=== PATIENT | female | born 1945 | race Caucasian/White ===

== ENCOUNTER → 2017-03-06 13:32 | Outpatient (CLI) | payer MEDICARE, OTHER ==
[2015-12-07 09:42] VITALS: BMI 20.8
[~2017-03-06 13:32] MED LIST: AMBIEN10 MG PO; BENADRYL25 MG PO; BIAXIN 500 MG500 MG PO; BUMEX 1 MG TAB1 MG PO; BUMEX2 MG PO; CALCIUM 600+D T1 TA1 PO; COREG 3.1253.125 MG NG; COREG 3.1253.125 MG PO; CYCLOBENZAPRINE10 MG PO; DEXILANT60 MG PO; FLAGYL500 MG PO; FLORANEX / LACT1 TAB PO; GLUCOPHAGE1000 MG PO; HUMALOG 30100 UNITS/; HUMALOG 30100 UNITS/ SQ; IBUPROFEN600 MG PO; LANOXIN125 MCG PO; LANOXIN250 MCG PO; LANTUS SOL100 UNIT/1 SQ; LASIX20 MG PO; LISINOPRIL5 MG PO; MAG-OX 400 MG400 MG PO; MAG-OXIDE400 MG PO; METOPROLOL TART50 MG PO; PLAVIX75 MG PO; PRAVACHOL20 MG PO; REGLAN10 MG PO; REMERON15 MG PO; RESTORIL15 MG PO; SALINE NASAL SP45 ML NS; SODIUM CHLORIDE PO; ULTRAM50 MG PO; VITAMIN B-121000 MCG PO
== END | disposition home or self-care (01) ==
LOC: D.US 13:32
DX: I65.23 Occlusion and stenosis of bilateral carotid arteries (principal)

== ENCOUNTER → 2017-03-25 08:06 | Outpatient (CLI) | payer MEDICARE, OTHER ==
[2015-12-07 09:42] VITALS: BMI 20.8
[~2017-03-25 08:06] MED LIST changes: +HUMALOG; +MUCOMYST PO
[2017-03-25 12:08] LABS: BASOPHILS 0.2 % (0-2); EOSINOPHILS 2.8 % (0-7); IMMATURE GRANULOCYTES 0.5 % (0-5); MCH 30.3 pg (26.0-34.0); MCHC 33.3 g/dL (31.0-37.0); MCV 90.9 fL (80.0-100.0); MEAN PLATELET VOLUME 12.6 fL (7.4-10.4); MONOCYTES 10.8 % (2-11); NEUTROPHILS 65.7 % (40-80); RBC 2.31 10x6/uL (4.00-5.40); RDW 17.7 % (11.5-14.5); WBC 5.6 10x3/uL (4.8-10.8)
[2017-03-25 12:24] LABS: PLATELET COUNT 120 10x3/uL (130-400)
[2017-03-25 12:29] LABS: ALBUMIN 3.1 g/dL (3.4-5.0); ANION GAP 11.4 mmol/L (8-16); BILIRUBIN - TOTAL 1.14 mg/dL (0.2-1.3); CALCIUM 7.9 mg/dL (8.5-10.1); CARBON DIOXIDE 30.5 mmol/L (21.0-32.0); CREATININE - SERUM 1.5 mg/dL (0.6-1.3); POTASSIUM - SERUM 3.9 mmol/L (3.5-5.1); PROTEIN - SERUM 6.7 g/dL (6.4-8.2)
--- NOTE | 2017-03-25 18:40 | NUR ---
0925 1 HOUR BICARB PRE CTA. INITIATED BY DULCE BAIRES RN. CT NOTIFIED. [address] POST IV BICARB INITIATED. LUNCH SERVED. UP TO BR VOIDS QS. 1325 DR. YAMILETH PANDEY NURSE ROUNDS, AWAITING FUTHER ORDERS. 1457 ORDERS RECEIVED FROM DIOGO BERRY APN. LAB NOTIFIED. PT. INFORMED OF ORDERS. 1530 LAB HERE DRAWN AND BANDED FOR BLOOD TRANSFUSION 1630 SUPPER TRAY ORDERED. 1700 1ST UNIT BLOOD CHECKED AT BEDSIDE BY THIS NURSE AND RADHA DEVI RN INITIATED BY ALARIS PUMP AT 50/CC/HR. 1715 SUPPER TRAY SERVED. DENIES PROBLEMS WITH BLOOD, RATE INCREASED TO 150/CC/HR 1715 DENIES PROBLEMS WITH TRANSFUSION 1845 UP TO BR VOIDS LG AMT.
== END | disposition home or self-care (01) ==
LOC: D.CT 08:00 → D.OPS 08:06 → D.LAB 09:30 → D.CT 10:00
PROVIDERS: Internal Medicine Cardiovascular Disease
DX: I65.23 Occlusion and stenosis of bilateral carotid arteries (principal); I10 Essential (primary) hypertension; D64.9 Anemia, unspecified

== ENCOUNTER → 2017-04-29 14:52 | Outpatient (CLI) | payer MEDICARE, OTHER ==
[2015-12-07 09:42] VITALS: BMI 20.8
== END | disposition home or self-care (01) ==
LOC: D.MRI 14:52
DX: S63.502A Unspecified sprain of left wrist, initial encounter (principal); W19.XXXA Unspecified fall, initial encounter

== ENCOUNTER 2017-05-25 17:31 | Inpatient (IN) | payer MEDICARE, OTHER ==
[~2017-05-25] VITALS: Ht 165.1 cm; Wt 73.7 kg
--- NOTE | ~2017-05-25 | HEMODYNAMI ---
PATIENT:INDIA ELLIS MEDICAL RECORD: [id number] : 47 LOCATION:[facility] D.2110 ADMISSION DATE: 05/26/17 Generatedon:06/09/201713:12 Patient name: INDIA ELLIS Patient #: [id number] SSN: : 1945 Date of study: 06/09/2017 Page: Of Hemodynamic Procedure Report Patient Data Patient Demographics Procedure consent was obtained First Name: INDIA Gender: Female Last Name: CALEB : 1945 [facility] Initial: CORRINE Age: 72 year(s) Patient #: [id number] Race: Unknown Additional ID: [id number] Contact details Address: [address] [place] [address] ROAD State: [place] City: [place] Zip code: [address] Past Medical History Allergies Allergen Reaction Date Comments Reported Other allergy 05/30/2017 SEE LIST Other allergy 06/09/2017 See Nursing note Admission Admission Data Admission Date: 05/26/2017 Admission Time: 11:43 Room #: D.2110 Lab Results Lab Result Date: 06/09/2017 Lab Result Time: 4:36 Biochemistry Name Units Result Min Max BUN mg/dl 51 --(----)-* 7 18 Creatinine mg/dl 1.8 --(----)-* 0.6 1.3 CBC Name Units Result Min Max Hematocrit % 25.5 *-(----)-- 42 54 Hemoglobin g/dl 8.8 *-(----)-- 13.5 17.5 Procedure Procedure Types Cath Procedure PCI Procedure Coronary Stent Initial Miscellaneous Procedures Moderate Sedation up to 15 minutes Procedure Description Procedure Date Procedure Date: 06/09/2017 Procedure Start Time: 12:56 Procedure End Time: 13:12 Procedure Staff Name Function Glenn Rodriguez MD Performing Physician Kathrine Ayala RT Scrub Kaylah Enriquez RN Nurse Dillon Pires RN Rotary Drum Dyer Gulshan Christensen RT Monitor Procedure Data Cath Procedure Fluoroscopy Diagnostic fluoroscopy Total fluoroscopy Time: 1.7 time: 1.7 min min Diagnostic fluoroscopy Total fluoroscopy dose: 115 dose: 115 mGy mGy Contrast Material Contrast Material Type Amount (ml) Isovue 300 28 Entry Location Entry Primary Successful Side Size Upsize Upsize Entry Closure Succes sful Closure Location (Fr) 1 (Fr) 2 (Fr) Remarks Device Remarks Femoral Right 6 Fr Exoseal artery Short Estimated blood loss: 10 ml Procedure Complications No complications Procedure Medications Medication Administration Route Dosage Oxygen NC 2 l/min Lidocaine 2% added to field 20 Heparin Flush Bag added to field 2 bags (1000units/500ml NS) 0.9% NaCl I.V. 100 ml/hr Versed I.V. 1 mg Fentanyl I.V. 50 mcg Heparin Bolus I.V. 4000 units Hemodynamics Rest HGB: 8.8 (g/dl) Heart Rate: 82 (bpm) Snapshots Pre Cath Intra NCS Post Cath Vital Signs Time Heart Resp SPO2 etCO2 [id number] NIBP (mmHg) Rhythm Pain Sedation Rate (ipm) (%) (mmHg) (mmHg) Status Level (bpm) 12:42:29 82 12 100 0 0 135/68(94) NSR 0 (11) 10(A) , No pain 12:46:44 82 16 100 0 0 128/69(99) NSR 0 (11) 10(A) , No pain 12:50:57 82 24 100 0 0 127/67(94) NSR 0 (11) 10(A) , No pain 12:55:09 81 17 99 0 0 120/70(102) NSR 0 (11) 10(A) , No pain 12:59:19 81 16 95 0 0 112/68(92) NSR 0 (11) 9(A) , No pain 13:03:29 79 17 100 0 0 114/58(87) NSR 0 (11) 9(A) , No pain 13:07:37 80 17 100 0 0 121/64(85) NSR 0 (11) 10(A) , No pain 13:11:59 0 0 No Cuff NSR 0 (11) 10(A) , No pain Medications Time Medication Route Dose Verified Delivered Reason Notes Effectiveness by by 12:39:58 Oxygen NC 2 Glenn Adrian used for l/min Michael Enriquez steel construction worker 12:40:06 Lidocaine 2% added 20ml Glenn Elizabeth for local to vial Michael Rodriguez MD anesthetic field 12:40:13 Heparin Flush added 2 Glenn Elizabeth used for Bag to bags Michael Rodriguez MD procedure (1000units/500ml field NS) 12:41:14 0.9% NaCl I.V. 100 Glenn Adrian Per physician ml/hr Michael Enriquez RN 12:56:28 Versed I.V. 1 mg Glenn Adrian for sedation Michael Enriquez RN 12:56:34 Fentanyl I.V. 50 Glenn Adrian for mcg Michael Enriquez RN anticoagulation 12:57:56 Heparin Bolus I.V. 4000 Glenn Adrian for units Michael Enriquez RN anticoagulation Procedure Log Time Note 12:18:34 Diagnostic Cath status Elective 12:18:36 Dillon Pires RN sent for patient. Start room use. 12:18:37 Time tracking: Regular hours 12:18:44 Plan of Care:Hemodynamics will remain stable., Cardiac rhythm will remain stable., Comfort level will be maintained., Respiratory function will remain adequate., Patient/ family verbilizes understanding of procedure., Procedure tolerated without complication., Recovers from procedure without complications.. 12:30:42 Patient received from Med II to CCL 1 Alert and oriented. Tansferred to table in Supine position. 12:30:43 Warm blankets applied, and sonya hugger turned on for patient comfort. 12:30:43 Correct patient and procedure confirmed by team. 12:30:45 Signed procedure consent form obtained from patient. 12:31:15 H&P Date Dictated: 06/06/2017 Within 30 days and on chart.. 12:39:58 Oxygen 2 l/min NC was administered by Kaylah Enriquez RN; used for procedure; 12:40:06 Lidocaine 2% 20ml vial added to field was administered by Glenn Rodriguez MD; for local anesthetic; 12:40:13 Heparin Flush Bag (1000units/500ml NS) 2 bags added to field was administered by Glenn Rodriguez MD; used for procedure; 12:41:14 0.9% NaCl 100 ml/hr I.V. was administered by Kaylah Erniquez RN; Per physician; 12:41:26 Vital chart was started 12:49:55 ECG and BP/O2 sat monitors applied to patient. 12:49:58 Baseline sample Acquired. 12:50:05 Rhythm: sinus rhythm 12:50:06 Pre-procedure instructions explained to patient. 12:50:06 Pre-op teaching completed and patient verbalized understanding. 12:50:08 Family unavailable. 12:50:09 Patient NPO since Midnight. 12:50:26 Patient allergic to Other allergySee Nursing note 12:50:28 Is the patient allergic to Iodine/contrast media? No. 12:50:29 Is patient on blood thinner?Yes 12:50:32 ACC The patient was administered the following blood thiners within the last 24 hours: ACCPlavix 12:50:35 Patient diabetic? Yes. 12:50:36 If diabetic: On Metformin? No 12:50:40 Previous problem with sedation/anesthesia? No ? 12:50:41 Snore? Yes 12:50:42 Sleep apnea? No 12:50:43 Deviated septum? No 12:50:44 Opens mouth fully? Yes 12:50:45 Sticks out tongue? Yes 12:50:47 Airway obstruction? No ? 12:50:52 Dentures? Yes IN TIGHT 12:50:56 Pre procedure: right dorsailis pedis pulse 1+ Palpable, but thready & weak; easily obliterated 12:50:58 Patient pain scale 0/10 ?. 12:51:09 IV patent on arrival in right antecubital with 0.9% NaCl at [facility]. 12:51:49 Lab Result : Creatinine 1.8 mg/dl 12:51:49 Lab Result : BUN 51 mg/dl 12:51:49 Lab Result : Hemoglobin 8.8 g/dl 12:51:49 Lab Result : Hematocrit 25.5 % 12:51:53 Lab results completed and on chart. 12:51:56 Right groin area was prepped with chlora-prep and draped in sterile fashion 12:51:57 Alarms reviewed by R. N. 12:51:57 Sharps counted by scrub and verified by R.N. 12:52:00 Tegaderm 4 x 4 opened to sterile field. 12:52:01 Acist Manifold opened to sterile field. 12:52:02 Acist Hand Control opened to sterile field. 12:52:03 Acist Syringe opened to sterile field. 12:52:03 Bag Decanter opened to sterile field. 12:52:03 Medline Cath Pack opened to sterile field. 12:52:06 St Jd 260cm J .035 wire opened to sterile field. 12:52:07 Diagnostic Infinity 5Fr Multipack catheter opened to sterile field. 12:52:13 Physician arrived 12::14 --------ALL STOP TIME OUT------ 12:52:14 Final Timeout: patient, procedure, and site verified with staff and physician. All members of the team are in agreement. 12:52:16 Right groin site verified by team. 12:52:18 Physical assessment completed. ASA score P 2 - A patient with mild systemic disease as per Glenn Rodriguez MD. 12:52:21 Sedation plan: IV Moderate Sedation Versed, Fentanyl 12:54:01 Terumo 6Fr [place] Sheath opened to sterile field. 12:54:02 Merit BasixCompak Inflation Kit opened to sterile field. 12:54:02 [place] Whisper J 300cm 0.014 guide wire opened to sterile field. 12:56:06 Everbridgetronic Launcher 6Fr AR 1.0 guide catheter opened to sterile field. 12:56:11 Procedure started. 12:56:11 Full Disclosure recording started 12:56:14 Local anesthetic to right femoral artery with Lidocaine 2% by Glenn Rodriguez MD.INITIAL ACCESS ONLY 12:56:21 A 6 Fr Short sheath was inserted into the Right Femoral artery 12:56:28 Versed 1 mg I.V. was administered by Kaylah Enriquez RN; for sedation; 12:56:34 Fentanyl 50 mcg I.V. was administered by Kaylah Enriquez RN; for anticoagulation; 12:57:55 Zero performed for pressure channel P1 12:57:56 Heparin Bolus 4000 units I.V. was administered by Kaylah Enriquez RN; for anticoagulation; 12:57:58 Zero performed for pressure channel P1 12:59:14 6 Fr AR 1 guide catheter was inserted over the wire 13:00:11 WHISPER wire advanced. 13:00:55 Wire advanced across lesion. 13:02:07 Inflation Number: 1 A James OTW 3.5 x 18 stent was prepped and advanced across the Mid RCA. The stent was deployed at 13 PARI for 0:10 (min:sec). 13:02:10 Stent catheter was removed intact over wire. 13:02:10 Wire removed. 13:02:11 Guide catheter removed. 13:02:17 Cordis 6Fr Exoseal opened to sterile field. 13:02:24 Sheath removed intact; hemostasis achieved with Exoseal to the Right Femoral artery. 13:02:26 Procedure ended.(Physican Out) 13:04:56 Fluoroscopy time 01.70 minutes. 13:05:01 Fluoroscopy dose: 115 mGy 13:05:01 Flurop Dose total: 115 13:06:47 Contrast amount:Isovue 300 28ml. 13:06:49 Sharps counted by scrub and verified by R.N. 13:06:50 Insertion/operative site no bleeding no hematoma. 13:06:52 Post-op/insertion site Right Femoral artery dressed using a 4 x 4 and Tegaderm. 13:06:55 Post right femoral artery:stable, soft, clean and dry 13:06:57 Post Procedure Pulses reassessed and unchanged 13:06:59 Post-procedure physical assessment completed. ASA score P 2 - A patient with mild systemic disease as per Glenn Rodriguze MD. 13:07:02 Post procedure rhythm: unchanged. 13:07:06 Estimated blood loss: 10 ml 13:07:08 Post procedure instruction explained to patient.Patient verbalizes understanding. 13:07:08 Patient needs reinforcement of post procedure teaching. 13:07:46 Procedure type changed to Cath procedure, PCI procedure, Coronary Stent Initial, Miscellaneous Procedures, Moderate Sedation up to 15 minutes 13:11:31 Procedure and supply charges have been captured, reviewed, submitted and are correct. 13:11:34 Procedure Complication : No complications 13:11:39 Vital chart was stopped 13:11:54 See physician's report for complete and final results. 13:11:56 Report given to PCU. 13:11:59 Patient transfered to PCU with Stretcher. 13:12:02 Procedure ended. 13:12:02 Full Disclosure recording stopped 13:12:23 End room use (Document Last) Intervention Summary Intervention Notes Time ActionType Lesion and Equipment Action# Pressure Duration Attributes Used 13:02:07 Place stent Mid RCA [place] OTW 1 13 00:10 3.5 x 18 stent Device Usage Item Name Manufacture Quantity Catalog Hospital Part Current [facility] l Lot# / Number Charge Number Stock Stock Serial# Code Tegaderm 4 3M 1 [id number] 147753 5 x 4 Acist Acist 1 61155 839721 919746 336126 5 Manifold Medical Systems Inc Acist Hand Acist 1 26070 231446 561797 845539 5 Control Medical Systems Inc Acist Acist 1 86962 039948 436231 816745 20 Syringe Medical Systems Inc Bag Microtek 1 2002S 426637 46406 016070 5 DecAppLabs Inc. Medline Cardinal 1 [id number] 675258 68927 117445 [address] Jd 1 [id number] 097577 606336 485094 30 260cm J .035 wire Diagnostic Cardinal 1 [id number] 801361 03276 613417 30 [employer]is [employer] 5Fr Multipack catheter Terumo 6Fr Terumo 1 [id number] 593348 643373 747982 40 [place] Sheath Merit Merit 1 [id number] 629029 642411 361707 15 BasixCompak Medical Inflation Kit [place] 1 [id number] 778930 813021 483906 5 Whisper J Vascular 300cm 0.014 guide wire Medtronic Medtronic 1 [id number] 520087 44328 609876 1 Launcher 6Fr AR 1.0 guide catheter [place] OTW Medtronic 1 [id number] 007433 9520843 090774 5 3.5 x 18 stent Cordis 6Fr Cardinal 1 EX600 754535 143468 991958 10 [facility] LocBox Signature Audit [place] Stage Time Signature Unsigned Intra-Procedure 06/09/2017 Gulshan Christensen 1:12:41 PM RT(R) Signatures Monitor : Gulshan Christensen RT Signature : Date : Time : [facility] [address] [facility]ITAL[facility], [place] [address]
--- NOTE | ~2017-05-25 | HEMODYNAMI ---
PATIENT:INDIA ELLIS MEDICAL RECORD: [id number] : 47 LOCATION[facility] D.[address] [id number] ADMISSION DATE: 05/26/17 Generatedon:05/30/201712:25 Patient name: INDIA ELLIS Patient #: [id number] SSN: : 1945 Date of study: 05/30/2017 Page: Of Hemodynamic Procedure Report Patient Data Patient Demographics Procedure consent was obtained First Name: INDIA Gender: Female Last Name: CALEB : 1945 [facility] Initial: CORRINE Age: 72 year(s) Patient #: [id number] Race: Unknown Additional ID: [id number] Contact details [address]: [address] [place] [address] ROAD State: [place] City: [place] Zip code: [address] Past Medical History Allergies Allergen Reaction Date Comments Reported Other allergy 05/30/2017 SEE LIST Admission Admission Data Admission Date: 05/26/2017 Admission Time: 11:43 Room #: D.2110 Lab Results Lab Result Date: 05/30/2017 Lab Result Time: 0:00 Biochemistry Name Units Result Min Max BUN mg/dl 66 --(----)-* 7 18 Creatinine mg/dl 1.7 --(----)-* 0.6 1.3 CBC Name Units Result Min Max Hemoglobin g/dl 9.6 *-(----)-- 13.5 17.5 Procedure Procedure Types Cath Procedure Diagnostic Procedure LHC LHC w/Coronaries w/Grafts PCI Procedure SVG-BMS/HEMANT Initial Miscellaneous Procedures Moderate Sedation up to 30 minutes Procedure Description Procedure Date Procedure Date: 05/30/2017 Procedure Start Time: 12:06 Procedure End Time: 12:19 Procedure Staff Name Function Glenn Rodriguez MD Performing Physician Kaylah Enriquez RN Nurse Javier Sandy RT Monitor Eloy Cantrell RT Scrub Procedure Data Cath Procedure Fluoroscopy Diagnostic fluoroscopy Total fluoroscopy Time: 4 time: 4 min min Diagnostic fluoroscopy Total fluoroscopy dose: 475 dose: 475 mGy mGy Contrast Material Contrast Material Type Amount (ml) Isovue 300 98 Entry Location Entry Primary Successful Side Size Upsize Upsize Entry Closure Succes sful Closure Location (Fr) 1 (Fr) 2 (Fr) Remarks Device Remarks Femoral Right 5 Fr 6 Fr Exoseal artery Short Diagnostic catheters Device Type Used For End Catheter Placement Cordis 5Fr Pigtail LV Angiography Catheter (MP) Cordis 5Fr JL 4.0 Left Coronary Catheter (MP) Angiography Diagnostic Infinity 5Fr SVG Angiography AR 2 MOD catheter Procedure Complications No complications Procedure Medications Medication Administration Route Dosage Oxygen NC 2 l/min Lidocaine 2% added to field 20 Heparin Flush Bag added to field 2 bags (1000units/500ml NS) 0.9% NaCl I.V. 100 ml/hr Versed I.V. 0.5 mg Fentanyl I.V. 25 mcg Versed I.V. 0.5 mg Fentanyl I.V. 25 mcg Heparin Bolus I.V. 4000 units Versed I.V. 0.5 mg Fentanyl I.V. 25 mcg Hemodynamics Rest HGB: 9.6 (g/dl) Heart Rate: 74 (bpm) Snapshots Pre Cath Intra NCS Post Cath Vital Signs Time Heart Resp SPO2 etCO2 [id number] NIBP (mmHg) Rhythm Pain Sedation Rate (ipm) (%) (mmHg) (mmHg) Status Level (bpm) 11:58:29 71 19 100 0 0 148/76(117) NSR 0 (11) 10(A) , No pain 12:02:47 70 17 100 0 0 147/68(115) NSR 0 (11) 10(A) , No pain 12:07:07 65 17 97 0 0 128/62(100) NSR 0 (11) 9(A) , No pain 12:12:04 66 16 99 0 0 127/58(94) NSR 0 (11) 9(A) , No pain 12:16:20 66 15 99 0 0 119/54(87) NSR 0 (11) 9(A) , No pain 12:22:55 66 19 99 0 0 128/59(99) NSR 0 (11) 10(A) , No pain Medications Time Medication Route Dose Verified Delivered Reason Notes Effectiveness by by 11:56:55 Oxygen NC 2 Glenn Adrian used for l/min Michael Enriquez record label internship 11:57:02 Lidocaine 2% added 20ml Glenn Elizabeth for local to vial Michael Rodriguez MD anesthetic field 11:57:08 Heparin Flush added 2 Glenn Elizabeth used for Bag to bags Michael Rodriguez MD procedure (1000units/500ml field NS) 12:03:09 0.9% NaCl I.V. 100 Glenn Adrian Per physician ml/hr Michael Enriquez RN 12:03:22 Versed I.V. 0.5 Glenn Buffie for sedation mg Michael Enriquez RN 12:03:29 Fentanyl I.V. 25 Glenn Buffie for sedation mcg Michael Enriquez RN 12:06:53 Versed I.V. 0.5 Glenn Buffie for sedation mg Michael Enriquez RN 12:06:57 Fentanyl I.V. 25 Glenn Buffie for sedation mcg Michael Enriquez RN 12:11:00 Heparin Bolus I.V. 4000 Glenn Buffie for verifi ed units Michael Enriquez RN anticoagulation with dr rodriguez 12:14:17 Versed I.V. 0.5 Glenn Buffie for sedation mg Michael Enriquez RN 12:14:20 Fentanyl I.V. 25 Glenn Buffie for sedation mcg Michael Enriquez RN Procedure Log Time Note 11:20:19 Javier Sandy RT(R) sent for patient. Start room use. 11:20:20 Time tracking: Regular hours 11:20:24 Plan of Care:Hemodynamics will remain stable., Cardiac rhythm will remain stable., Comfort level will be maintained., Respiratory function will remain adequate., Patient/ family verbilizes understanding of procedure., Procedure tolerated without complication., Recovers from procedure without complications.. 11:44:37 Patient received from PCU to CCL 1 Alert and oriented. Tansferred to table in Supine position. 11:44:40 Warm blankets applied, and sonya hugger turned on for patient comfort. 11:44:41 Correct patient and procedure confirmed by team. 11:44:43 Signed procedure consent form obtained from patient. 11:44:43 ECG and BP/O2 sat monitors applied to patient. 11:56:55 Oxygen 2 l/min NC was administered by Kaylah Enriquez RN; used for procedure; 11:57:02 Lidocaine 2% 20ml vial added to field was administered by Glenn Rodriguez MD; for local anesthetic; 11:57:08 Heparin Flush Bag (1000units/500ml NS) 2 bags added to field was administered by Glenn Rodriguez MD; used for procedure; 11:57:21 Vital chart was started 11:57:22 Baseline sample Acquired. 11:57:25 Rhythm: sinus rhythm 11:57:30 Full Disclosure recording started 11:57:58 H&P Date Dictated: 05/30/2017 Within 30 days and on chart.. 11:58:00 Pre-procedure instructions explained to patient. 11:58:00 Pre-op teaching completed and patient verbalized understanding. 11:58:02 Family in waiting room. 11:58:04 Patient NPO since Midnight. 11:58:21 Patient allergic to Other allergySEE LIST 11:58:23 Is the patient allergic to Iodine/contrast media? No. 11:58:26 Is patient on blood thinner?Yes 11:58:29 ACC The patient was administered the following blood thiners within the last 24 hours: ACCAspirin, ACCPlavix 11:58:31 Patient diabetic? Yes. 11:58:32 If diabetic: On Metformin? No 11:58:33 ----Pre-sedation anethsthesia assessment.---- 11:58:36 Previous problem with sedation/anesthesia? No ? 11:58:37 Snore? Yes 11:58:40 Sleep apnea? No 11:58:52 SLEEPS WITH O2 11:58:54 Deviated septum? No 11:58:56 Opens mouth fully? Yes 11:58:57 Sticks out tongue? Yes 11:59:01 Airway obstruction? No ? 11:59:07 Dentures? Yes IN TIGHT 11:59:10 Pre procedure: right dorsailis pedis pulse 1+ Palpable, but thready & weak; easily obliterated 11:59:16 Patient pain scale 0/10 ?. 11:59:37 IV patent on arrival in left wrist with 0.9% NaCl at 10ml/hr. 12:00:10 Lab Result : Creatinine 1.7 mg/dl 12:00:10 Lab Result : BUN 66 mg/dl 12:00:10 Lab Result : Hemoglobin 9.6 g/dl 12:00:13 Lab results completed and on chart. 12:00:16 Right groin area was prepped with chlora-prep and draped in sterile fashion 12:00:17 Alarms reviewed by R. N. 12:00:17 Sharps counted by scrub and verified by R.N. 12:00:18 --------ALL STOP TIME OUT------ 12:00:18 Final Timeout: patient, procedure, and site verified with staff and physician. All members of the team are in agreement. 12:00:20 Right groin site verified by team. 12:00:23 Physical assessment completed. ASA score P 2 - A patient with mild systemic disease as per Glenn Rodriguez MD. 12:00:27 Sedation plan: IV Moderate Sedation Versed, Fentanyl 12:01:03 Use device set Femoral Dx 12:01:04 Acist Syringe opened to sterile field. 12:01:05 Bag Decanter opened to sterile field. 12:01:05 Medline Cath Pack opened to sterile field. 12:01:05 Terumo 5Fr Temple[place] Sheath opened to sterile field. 12:01:06 St Jd 260cm J .035 wire opened to sterile field. 12:01:14 Acist Hand Control opened to sterile field. 12:01:15 Acist Manifold opened to sterile field. 12:01:15 Diagnostic Infinity 5Fr Multipack catheter opened to sterile field. 12:01:15 Tegaderm 4 x 4 opened to sterile field. 12:03:09 0.9% NaCl 100 ml/hr I.V. was administered by Kaylah Enriquez RN; Per physician; 12:03:22 Versed 0.5 mg I.V. was administered by Kaylah Enriquez RN; for sedation; 12:03:29 Fentanyl 25 mcg I.V. was administered by Kaylah Enriquez RN; for sedation; 12:06:05 Procedure started. 12:06:11 Local anesthetic to right femoral artery with Lidocaine 2% by Glenn Rodriguez MD.INITIAL ACCESS ONLY 12:06:21 A 5 Fr sheath was inserted into the Right Femoral artery 12:06:24 Zero performed for pressure channel P1 12:06:31 Zero performed for pressure channel P1 12:06:36 Zero performed for pressure channel P1 12:06:53 Versed 0.5 mg I.V. was administered by Kaylah Enriquez RN; for sedation; 12:06:57 Fentanyl 25 mcg I.V. was administered by Kaylah Enriquez RN; for sedation; 12:07:00 A Cordis 5Fr Pigtail Catheter (MP) was advanced over the wire and used for LV Angiography. 12:07:04 LV angiography performed. 12:07:14 EF : 30 % 12:07:18 Injector settings: Ml/sec: 10, Volume: 20, 12:07:20 Zero performed for pressure channel P1 12:07:25 Catheter removed. 12:07:30 A Cordis 5Fr JL 4.0 Catheter (MP) was advanced over the wire and used for Left Coronary Angiography. 12:07:33 LCA angiography performed. 12:07:47 Catheter removed. 12:08:25 A Diagnostic Infinity 5Fr AR 2 MOD catheter was advanced over the wire and used for SVG Angiography. 12:08:45 RCA angiography performed. 12:08:48 SVG to LAD angiography performed. 12:08:52 Catheter removed. 12:08:57 ACC Pre-intervention MEEK Flow is 3. 12:09:17 Sheath upsized to a 6 Fr Short. 12:11:00 Heparin Bolus 4000 units I.V. was administered by Kaylah Enriquez RN; for anticoagulation; verified with dr rodriguez 12:12:30 Ventura Whisper J 300cm 0.014 guide wire opened to sterile field. 12:12:30 PressLabs BasixCompak Inflation Kit opened to sterile field. 12:12:31 Medtronic Launcher 6Fr AR 2.0 SH guide catheter opened to sterile field. 12:12:40 Study PCI Site: Vein Graft mLAD has 90% stenosis. 12:12:46 6 Fr AR 2 SH guide catheter was inserted over the wire 12:12:49 WHISPER wire advanced. 12:13:28 Inflation Number: 1 A [place] OTW 2.5 x 15 stent was prepped and advanced across the Aorta Left -> Mid LAD. The stent was deployed at 13 PARI for 0:12 (min:sec). 12:13:55 Inflation number: 2 The stent balloon was then re-inflated across the Aorta Left -> Mid LAD to 19 PARI for 0:10 (min:sec). 12:14:06 Inflation number: 1 The stent balloon was then re-inflated across the Mid LAD to 21 PARI for 0:10 (min:sec). 12:14:17 Versed 0.5 mg I.V. was administered by Kaylah Enriquez RN; for sedation; 12:14:19 Stent catheter was removed intact over wire. 12:14:20 Fentanyl 25 mcg I.V. was administered by Kaylah Enriquez RN; for sedation; 12:15:59 Inflation Number: 1 A [place] OTW 3.5 x 18 stent was prepped and advanced across the Aorta Left -> Mid LAD. The stent was deployed at 15 PARI for 0:07 (min:sec). 12:16:10 Inflation number: 2 The stent balloon was then re-inflated across the Aorta Left -> Mid LAD to 23 PARI for 0:10 (min:sec). 12:16:17 Stent catheter was removed intact over wire. 12:16:17 Wire removed. 12:16:18 Guide catheter removed. 12:16:25 Cordis 6Fr Exoseal opened to sterile field. 12:16:36 Sheath removed intact; hemostasis achieved with Exoseal to the Right Femoral artery. 12:16:39 Procedure ended.(Physican Out) 12:17:05 Contrast amount:Isovue 300 98ml. 12:17:10 Fluoroscopy time 04.00 minutes. 12:17:15 Fluoroscopy dose: 475 mGy 12:17:15 Flurop Dose total: 475 12:17:16 Sharps counted by scrub and verified by R.N. 12:17:17 Insertion/operative site no bleeding no hematoma. 12:17:20 Post-op/insertion site Right Femoral artery dressed using a 4 x 4 and Tegaderm. 12:17:23 Post right femoral artery:stable 12:17:24 Post Procedure Pulses reassessed and unchanged 12:17:26 Post procedure: right dorsailis pedis pulse 1+ Palpable, but thready & weak; easily obliterated. 12:17:30 Post procedure rhythm: sinus rhythm 12:17:32 Post procedure instruction explained to patient.Patient verbalizes understanding. 12:17:46 Procedure type changed to Cath procedure, Diagnostic procedure, LHC, LHC w/Coronaries w/Grafts, PCI procedure, SVG-BMS/HEMANT Initial, Miscellaneous Procedures, Moderate Sedation up to 30 minutes 12:18:25 Procedure and supply charges have been captured, reviewed, submitted and are correct. 12:19:06 Merit Prelude 6Fr Femoral Sheath (NO COST SUPPLY) opened to sterile field. 12:19:21 Procedure Complication : No complications 12:19:23 Vital chart was stopped 12:19:24 See physician's report for complete and final results. 12::25 Report given to PCU. 12:19:28 Patient transfered to PCU with Bed. 12:19:30 Procedure ended. 12:19:30 Full Disclosure recording stopped 12:19:33 End room use (Document Last) 12::38 ACC-PCI Only Patient was given prescriptions, or instructed by Glenn Rodriguez MD to start/continue the following medications upon discharge: Plavix Intervention Summary Intervention Notes Time ActionType Lesion and Equipment Action# Pressure Duration Attributes Used 12:13:28 Place stent Aorta Left [place] OTW 1 13 00:12 -> Mid LAD 2.5 x 15 stent 12:13:55 Reinflate Aorta Left James OTW 2 19 00:10 stent -> Mid LAD 2.5 x 15 balloon stent 12:14:06 Reinflate Mid LAD [place] OTW 1 21 00:10 stent 2.5 x 15 balloon stent 12:15:59 Place stent Aorta Left [place] OTW 1 15 00:07 -> Mid LAD 3.5 x 18 stent 12:16:10 Reinflate Aorta Left James OTW 2 23 00:10 stent -> Mid LAD 3.5 x 18 balloon stent Device Usage Item Name Manufacture Quantity Catalog Number Hospital Part Current Mini mal Lot# / Charge Number Stock Stock Serial# Code Acist Acist 1 71767 [id number] 153255 166656 20 logolineup Medical Systems Inc Bag Microtek 1 2002S 222938 16551 783097 5 Spring [employer] Inc. Medline Cardinal 1 [id number] 672556 18409 397740 5 Birdbox Terumo 5Fr Terumo 1 PCT831 854774 672515 274638 [address] J[address] Jd 1 038540 755402 368493 698094 30 260cm J .035 wire Acist Hand Acist 1 91923 430099 026105 872070 5 Postcron Medical Systems Inc Acist Acist 1 76681 708343 086982 104384 5 Health Information Designs Medical Systems Inc Diagnostic Cardinal 1 [id number] 921936 42286 478142 30 Trendmeon 5Fr Multipack catheter Tegaderm 4 3M 1 1626W 558688 471438 639115 5 x 4 Cordis 5Fr Cardinal 1 315945 5 Pigtail Health Catheter (MP) Cordis 5Fr Cardinal 1 437443 5 JL 4.0 Health Catheter (MP) Diagnostic Cardinal 1 [id number] 889164 734846 944808 20 Infinity Health 5Fr AR 2 MOD catheter Ventura Ventura 1 [id number] 497699 993888 123802 5 Whisper J Vascular 300cm 0.014 guide wire Merit Merit 1 DO5398 495860 106209 447646 15 BasixCompak Medical Inflation Kit Medtronic Medtronic 1 [id number] 165940 08467 233917 1 Launcher 6Fr AR 2.0 SH guide catheter [place] OTW Medtronic 1 [id number] 593608 48186 164653 5 [id number] 2.5 x 15 stent [place] OTW Medtronic 1 [id number] 887779 9398525 778168 5 [id number] 3.5 x 18 stent Cordis 6Fr Cardinal 1 EX600 140502 869253 135012 10 Exoseal eGames Merit Merit 1 [id number] 806487 500951 5 Prelude 6Fr Medical Femoral Sheath (NO COST SUPPLY) Signature Audit [place] Stage Time Signature Unsigned Intra-Procedure 05/30/2017 Javier Sandy 12:25:01 PM RT(R) Signatures Monitor : Javier Sandy RT Signature : Date : Time : [facility] [address] [place] [address]
[2017-05-25 18:17] LABS: BASOPHILS 0.2 % (0-2); EOSINOPHILS 1.8 % (0-7); HEMATOCRIT 28.4 % (36.0-48.0); HEMOGLOBIN 9.5 g/dL (12-16); IMMATURE GRANULOCYTES 1.2 % (0-5); LYMPHOCYTES 11.2 % (15-50); MCH 31.3 pg (26.0-34.0); MCHC 33.5 g/dL (31.0-37.0); MCV 93.4 fL (80.0-100.0); MONOCYTES 7.1 % (2-11); NEUTROPHILS 78.5 % (40-80); PLATELET COUNT 129 10x3/uL (130-400); RBC 3.04 10x6/uL (4.00-5.40); RDW 21.1 % (11.5-14.5); WBC 6.5 10x3/uL (4.8-10.8)
[2017-05-25 18:35] LABS: ALBUMIN 3.3 g/dL (3.4-5.0); ANION GAP 12.4 mmol/L (8-16); BILIRUBIN - TOTAL 0.71 mg/dL (0.2-1.3); CALCIUM 8.4 mg/dL (8.5-10.1); CARBON DIOXIDE 26.8 mmol/L (21.0-32.0); CREATININE - SERUM 1.5 mg/dL (0.6-1.3); POTASSIUM - SERUM 4.2 mmol/L (3.5-5.1)
[2017-05-25 19:00] VITALS: BP 137/64
[2017-05-25 20:47] LABS: APPEARANCE CLEAR (CLEAR); BILIRUBIN NEGATIVE (NEGATIVE); COLOR YELLOW (YELLOW); GLUCOSE NEGATIVE (NEGATIVE); KETONE NEGATIVE (NEGATIVE); LEUKOCYTE ESTERASE 1+ (NEGATIVE); NITRITE NEGATIVE (NEGATIVE); PROTEIN TRACE mg/dL (NEGATIVE); SPECIFIC GRAVITY 1.005 (1.005-1.020); UROBILINOGEN NORMAL (NORMAL)
[2017-05-25 20:57] LABS: RED CELLS - URINE RARE /hpf (0-5)
[2017-05-25 21:00] LABS: BACTERIA MODERATE /hpf (NONE SEEN)
[2017-05-25] MEDS ORDERED: JANUVIA25 MG PO (22:57)
--- NOTE | 2017-05-26 01:05 | NUR ---
CALL LIGHT IN REACH, WILL CONTINUE WITH PLAN OF CARE.
[2017-05-26 04:00] VITALS: BP 101/35
--- NOTE | 2017-05-26 04:13 | NUR ---
PT SLEEPING, BED IS LOW, SRX2, CALL LIGHT IN REACH, WILL CONTINUE TO MONITOR
--- NOTE | 2017-05-26 07:30 | NUR ---
AM ROUNDS - PT IS AWAKE AND ALERT IN BED. NON SKID SOCKS ON. IV TO RIGHT HAND, SL. O2 AT 2.5 L VIA NC. MONITOR SHOWING SR, HR 79. PT IS A&O. BED AT LOWEST POSITION, SIDE RAILS UP X2, CALL VIRGEN IN USE/REACH. NO NEEDS AT THSI TIME. WILL CONTINUE TO MONITOR
[2017-05-26 08:00] VITALS: BP 138/48
[2017-05-26 12:00] VITALS: BP 130/41
[2017-05-26 13:59] VITALS: Ht 165.1 cm; Wt 73.7 kg
[2017-05-26 16:00] VITALS: BP 159/64
--- NOTE | 2017-05-26 19:05 | NUR ---
PT IN BED WITH ATTENTION TOWARDS TELEVISION DENIES NEEDS AT THIS TIME WILL CONTINUE TO MONITOR
[2017-05-26 20:00] VITALS: BP 130/86
[2017-05-27] VITALS: BP 140/67
--- NOTE | 2017-05-27 00:29 | NUR ---
IT ANALYST AT BEDSIDE TO OBTAIN VITALS, CALL LIGHT IN REACH. WILL CONTINUE WITH PLAN OF CARE.
--- NOTE | 2017-05-27 01:40 | NUR ---
REST QUIETLY IN BED, EYE CLOSE, BED LOW, CALL LIGHT WITHIN REACH.
--- NOTE | 2017-05-27 01:56 | NUR ---
PT FSBS IS 394, 10 UNITS HUMULIN GIVEN.
[2017-05-27 04:00] VITALS: BP 131/59
[2017-05-27 05:31] LABS: BASOPHILS 0.1 % (0-2); EOSINOPHILS 1.8 % (0-7); HEMATOCRIT 29.5 % (36.0-48.0); HEMOGLOBIN 9.7 g/dL (12-16); IMMATURE GRANULOCYTES 0.9 % (0-5); LYMPHOCYTES 9.9 % (15-50); MCH 31.2 pg (26.0-34.0); MCHC 32.9 g/dL (31.0-37.0); MCV 94.9 fL (80.0-100.0); MEAN PLATELET VOLUME 12.2 fL (7.4-10.4); MONOCYTES 8.5 % (2-11); NEUTROPHILS 78.8 % (40-80); PLATELET COUNT 122 10x3/uL (130-400); RBC 3.11 10x6/uL (4.00-5.40); RDW 21.2 % (11.5-14.5)
[2017-05-27 06:02] LABS: ANION GAP 13.5 mmol/L (8-16); CARBON DIOXIDE 28.5 mmol/L (21.0-32.0)
[2017-05-27 06:04] LABS: CREATININE - SERUM 1.9 mg/dL (0.6-1.3); DIGOXIN 1.91 ng/mL (0.90-2.00)
--- NOTE | 2017-05-27 07:34 | NUR ---
AM ROUNDING- RECEIVED REPORT FROM SUPERVISOR FLOOR ASSEMBLY NURSE VELIA. PT IS CURRENTLY LAYING IN BED ON BACK WITH EYES OPEN RESTING. PT IS STATES SHE IS IN 7/10 PAIN COMING FROM WHEN SHE BREATHS. PT STATES "I HAVE FLUID ON MY LUNGS". ON 02 AT 2L VIA NC. ON MONITOR SHOWING SR, HR 84 WITH PVCS AND BLOCKED BEAT AT TIMES (PER BENTLEY IN TELEMETRY). IV SEEN TO RIGHT HAND THAT IS CURRENTLY SALINE LOCKED. GUEST IS AT BEDSIDE. NO NEED AT CURRENT TIME. WILL CONTINUE TO MONITOR AND CONTINUE WITH PLAN OF CARE.
[2017-05-27 08:00] VITALS: BP 135/55
--- NOTE | 2017-05-27 11:02 | NUR ---
CALLED INTO PTS ROOM BY PTS FOR PT HAVING DIFFICULTY BREATHING. WENT TO CHECK ON PT. ELEVATED HOB. O2 SAT IS 99% ON O2 AT 2L VIA NC. PTS STATES SHE WAS LAYING IN BED TRYING TO REST. INSTRUCTED PT AND TO LET ME KNOW IF HAVING ANYMORE DIFFICULTY. PT AND REPLIED "THANKYOU". CALL LIGHT PLACED IN PTS REACH. WILL CONTINUE TO MONITOR.
--- NOTE | 2017-05-27 11:37 | NUR ---
RATIONALE FOR SCD'S EXPLAINED T0 PATIENT AND SPOUSE. REFUSED SCD'S
[2017-05-27 12:00] VITALS: BP 113/46
--- NOTE | 2017-05-27 12:19 | NUR ---
HUNG PTS DOBUTAMINE DRIP ORDERED (5MCG/KG/MIN) WHICH CAME TO BE 10.4CC/HR WITH WT CALCULATION IN KG.
--- NOTE | 2017-05-27 14:31 | NUR ---
CAITLYN, CHARGE NURSE INFORMED ME THAT PTS IV CATHETER CAME OUT. CAITLYN ATTEMPTED TO RESITE PT WITH IV CATHETER BUT WAS NOT SUCCESSFUL. KHUSHBOO SEYMOUR, VASCULAR ACCESS NURSE CALLED AND KHUSHBOO STATES SHE WILL COME LOOK FOR IV SITE.
--- NOTE | 2017-05-27 15:00 | NUR ---
KHUSHBOO SEYMOUR VASCULAR ACCESS NURSE SITED PT WITH IV CATHETER TO RIGHT WRIST AREA. RESTARTED PTS IV MEDICATIONS ORDERED.
--- NOTE | 2017-05-27 15:34 | NUR ---
CONSENTS FOR CARDIAC CATH TOMORROW EXPLAINED TO PT AND SIGNED BY PT. CONSENTS PLACED IN CHART. PT INSTRUCTED TO REMAIN NOTHING BY MOUTH AFTER MIDNIGHT ORDERED, PT AGREES. NPO SIGN PLACED ON PTS DOOR. WILL CONTINUE TO MONITOR.
[2017-05-27 16:00] VITALS: BP 138/57
--- NOTE | 2017-05-27 18:40 | NUR ---
PT IS CURRENTLY LAYING IN BED ON BACK WITH EYES CLOSED RESTING. NO NEED AT CURRENT TIME. BED IS IN LOW POSITION, SIDE RAILS ARE UP X2, AND CALL LIGHT IS IN REACH. WILL CONTINUE TO MONITOR.
--- NOTE | 2017-05-27 19:40 | NUR ---
PT IN BED WITH HOB UP FOR COMFORT. WATCHING TV. O2 @ 2L VIA N/C. TELEMETRY. FSBS Q6H. LEFT WRIST BRACE. RIGHT WRIST 5MCG/KG/MIN DELBUTAMINE DRIP RUNNING AT 10.4CC/HR. PT HAVING CARDIAC CATH TOMORROW. PT TO BE NPO AT MIDNIGHT. BED IN LOWEST POSITION AND CALL LIGHT WITHIN REACH.
--- NOTE | 2017-05-27 23:00 | NUR ---
PT IN BED WITH HOB UP FOR COMFORT. WATCHING TV. BED IN LOWEST POSITION AND CALL LIGHT WITHIN REACH.
[2017-05-28] VITALS: BP 140/62
--- NOTE | 2017-05-28 02:31 | NUR ---
PT RECEIVED HIBACLENS BATH BY BEN ZAVALA.
--- NOTE | 2017-05-28 03:18 | NUR ---
PT IN BED WITH HOB UP FOR COMFORT. EYES CLOSED. RESP. EVEN. BED IN LOWEST POSITION AND CALL LIGHT WITHIN REACH.
[2017-05-28 04:00] VITALS: BP 117/39
--- NOTE | 2017-05-28 05:00 | NUR ---
PT RESTING WITH EYES CLOSED. RESPS EVEN/NONLABORED. FAMILY X 1 AT BEDSIDE. CALL LIGHT IN REACH. MONITOR AND CPOC.
[2017-05-28 05:35] LABS: BASOPHILS 0.2 % (0-2); EOSINOPHILS 1.8 % (0-7); HEMATOCRIT 25.7 % (36.0-48.0); HEMOGLOBIN 8.7 g/dL (12-16); IMMATURE GRANULOCYTES 1.1 % (0-5); LYMPHOCYTES 13.9 % (15-50); MCH 31.4 pg (26.0-34.0); MCHC 33.9 g/dL (31.0-37.0); MEAN PLATELET VOLUME 12.4 fL (7.4-10.4); RBC 2.77 10x6/uL (4.00-5.40); RDW 20.7 % (11.5-14.5); WBC 5.5 10x3/uL (4.8-10.8)
[2017-05-28 05:47] LABS: MCV 92.8 fL (80.0-100.0); PLATELET COUNT 97 10x3/uL (130-400)
[2017-05-28 05:59] LABS: ANION GAP 14.8 mmol/L (8-16); CALCIUM 8.4 mg/dL (8.5-10.1); CARBON DIOXIDE 24.7 mmol/L (21.0-32.0); POTASSIUM - SERUM 4.5 mmol/L (3.5-5.1)
[2017-05-28 06:16] LABS: PLATELET ESTIMATE DECREASED
--- NOTE | 2017-05-28 08:08 | NUR ---
AM ROUNDING- RECEIVED REPORT FROM INSURANCE SALES EXECUTIVE NURSE CARDONA. PT IS CURRENTLY SITTING UP IN BED C/O BACK PAIN. ADJUSTED PILLOW FOR PT AND TAXONOMY TEACHER PLACED WARM WASH CLOTH ON PTS BACK. ON 02 AT 2L VIA NC. ON MONITOR SHOWING SR, HR 65. IV SEEN TO RIGHT WRIST WITH DOBUTAMINE RUNNING AT 10.8CC (CHANGED DOBUTAMINE DRIP THIS AM PER PTS DAILY WT ORDERED AT 5MCG/KG/MIN). PT IS NPO CURRENTLY FOR CARDIAC CATH TODAY ORDERED. CONSENTS ARE SIGNED AND IN CHART. PT HAD HIBICLENS SHOWER THIS AM PER INSURANCE SALES EXECUTIVE NURSE CARDONA FOR PROCEDURE TODAY. NO NEED AT CURRENT TIME. IS NOW AT BEDSIDE. WILL CONTINUE TO MONITOR AND CONTINUE WITH PLAN OF CARE.
[2017-05-28 08:24] VITALS: BP 92/40
--- NOTE | 2017-05-28 09:14 | NUR ---
RAFAEL, SUPPLY CHAIN DIRECTOR PAGED DIOGO BERRY NP FOR PT. PT IS C/O SEVERE BACK PAIN. RECEIVED CALLBACK FROM DIOGO BERRY NP WITH NEW ORDERES RECEIVED. DIOGO BERRY NP AWARE OF PTS AM BLOOD PRESSURE (92/40). WILL CONTINUE TO MONITOR.
[2017-05-28 12:12] VITALS: BP 122/46
--- NOTE | 2017-05-28 13:54 | EC ---
PATIENT:INDIA ELLIS DATE OF SERVICE: 05/26/17 SEX: F MEDICAL RECORD: [id number] DATE OF : [birth year] LOCATION:D. D.211 AGE OF PATIENT: 72 ADMISSION DATE: 05/26/17 REFERRING PHYSICIAN: INTERPRETING PHYSICIAN: JED RODRIGUEZ MD ECHOCARDIOGRAM REPORT ECHO CHARGES 4 ECHO COMPLETE CLINICAL DIAGNOSIS: SOB ECHOCARDIOGRAPHIC MEASUREMENTS (adult normal given) AC root (d.<3.7cm) 3.1 cm LV Septum d (<1.2 cm> 1.3 cm Valve Excursion 1.5 cm LV Septum (systole) 1.8 cm Left Atria (s.<4.0cm> 4.5 cm LVPW d(<1.2cm) 1.2 cm RV (d.<2.3cm) 2.8 cm LVPW (sytole) 1.7 cm LV diastole(<5.6CM) 5.4 cm MV E-F(>70mm/sec) cm LV systole 4.1 cm LVOT Diameter 1.8 cm MV exc.(>10mm) cm Est.ejection fraction (50-75%) % Pericardial Effusion N DOPPLER: LVIT cm/sec A cm/sec E 158 cm/sec LA cm/sec RVSP 62.0 mmHg LVOT 70.0 cm/sec AOP1/2T m/s Asc. Ao 173 cm/sec RVOT 75.0 cm/sec RA cm/sec PA 123 cm/sec AV Gradient Peak 12.0 mmHg AV Mean 5.2 mmHg AV Area 1.0 cm MV Gradient Peak 10.2 mmHg MV Mean 4.3 mmHg MV Area cm COMMENTS: Oil Heaterman: Jameel QIUOE Coroner Forensic Technician: 1 Dr. Rodriguez TAPE# PACS DATE OF SERVICE: 05/26/2017 Echocardiogram FINDINGS: 1. Left ventricular chamber size is dilated. Left ventricular systolic function is markedly reduced, overall ejection fraction 25% to 30%. 2. Left atrium, right atrium, and right ventricular chamber sizes are dilated giving 4-chamber dilatation. Left atrium measures 4.6 cm. 3. Valvular structures have normal structure and motion. ECHOCARDIOGRAM REPORT [id number] INDIA ELLIS 4. Doppler interrogation reveals moderate mitral regurgitation, severe tricuspid regurgitation, no other valvular insufficiency or stenosis. Pulmonary systolic pressure is elevated estimated 62 mmHg. 5. No evidence of pericardial effusion or left ventricular thrombus. TRANSINT:[id number] Voice Confirmation ID: [id number] DOCUMENT ID: [id number] JED RODRIGUEZ MD at 1354 CC: [id number] DICTATION DATE: 05/27/17 1101 DISC SANDER: 05/27/17 1208 ADM IN [facility] [address] [place] [address]
--- NOTE | 2017-05-28 13:54 | CN ---
PATIENT NAME:INDIA PEREZ MEDICAL RECORD: [id number] : 47 LOCATION:D.M2 D.2110 ADMIT DATE: 05/26/17 ACCOUNT: [id number] CONSULTING PHYSICIAN: JED GOLDEN MD REFERRING PHYSICIAN: JAMAL HERNANDEZ MD DATE OF CONSULTATION: 05/26/2017 DIAGNOSES: 1. Lower extremity edema. 2. Shortness of breath. 3. Coronary artery disease, previous percutaneous transluminal coronary angioplasty stent in 2011. 4. Hypertension. HISTORY OF PRESENT ILLNESS: Mrs. Perez has had progressive increasing shortness of breath as well as lower extremity edema. She presents with this. She has been on Bumex, Lopressor, lisinopril for this. Last cardiac evaluation was December of last year showed a normal ejection fraction. She has not had any chest pain or chest discomfort. PHYSICAL EXAMINATION: GENERAL APPEARANCE: Well-nourished, well-developed, appears stated age. Level of distress, comfortable. PSYCHIATRIC: Mental status, alert, normal affect. Orientation, oriented to time, place and person. EYES: Lids and conjunctiva, noninjected. No discharge, no pallor. ENT: Lips, teeth, gums, normal dentition. Oropharynx, no cyanosis, no pallor. NECK: Carotid arteries, bilateral normal upstroke, no bruits, no thrills. JUGULAR VEINS: No jugular venous pressure or distention. CERVICAL LYMPH NODES: Nontender, nonenlarged. THYROID: Not enlarged. Nontender. No nodules. LUNGS: Respiratory effort, unlabored. CHEST: Normal curvature. No thoracic deformity. No chest wall tenderness. Percussion, resonant. Auscultation, clear. No wheezes, no rales, no rhonchi. CARDIOVASCULAR: Precordial exam, nondisplaced. No heaves or pericardial thrills. Rate and rhythm, regular. Heart sounds, normal S1, normal S2. No S3, no gallop, no rub. Systolic murmur, not heard. Diastolic murmur, not heard. EXTREMITIES: No cyanosis, no edema. Peripheral pulses, full and equal in all extremities, except as noted. No bruits appreciated. ABDOMEN: Soft, nondistended. Normal aorta. No bruit. Nontender. No masses. Liver, nontender, no hepatomegaly. Spleen, nontender, no splenomegaly. MUSCULOSKELETAL: No joint tenderness. No joint swelling. No erythema. NEUROLOGICAL: Normal gait, normal strength, normal tone. SKIN: Warm and dry. REVIEW OF SYSTEMS: The patient reports easy bruising but reports no swollen glands. The patient reports no fever, no night sweats, no significant weight gain, no significant weight loss. No significant exercise tolerance. The patient reports no dry eyes, no irritation, no vision change. Patient reports no difficulty hearing and no ear pain. Patient reports no frequent nose bleeds or nose and sinus problems. Patient reports on arm pain on exertion. No shortness of breath while lying down. No history of heart murmur. Patient reports no cough, no wheezing or coughing up blood. Patient reports no abdominal pain, no vomiting. Normal appetite. No diarrhea and not vomiting blood. No nausea and no constipation. Patient reports no incontinence. No CONSULT REPORT [id number] INDIA PEREZ difficulty urinating. No hematuria. No increased frequency. Patient reports no muscle aches. No weakness, no arthralgias, no back pain. No swelling of the extremities. Patient reports no abnormal mole, no jaundice, no rashes. Reports no loss of consciousness. No weakness and no numbness. No seizures, dizziness, or headaches. The patient reports no depression, no sleep disturbance, feeling safe in a relationship and no alcohol abuse. Patient reports on fatigue. Reports no runny nose or sinus pressure. No itching, no hives, and no frequent sneezing. OVERALL IMPRESSION: Progressive lower extremity edema and shortness of breath. We will reevaluate her ejection fraction with echocardiogram, get a troponin. Further care depends upon the findings of these studies. TRANSINT:[id number] Voice Confirmation ID: [id number] DOCUMENT ID: [id number] JED GOLDEN MD at 1354 CC: [id number] DICTATION DATE: 05/26/17 1235 HIGH PRESSURE OPERATOR: 05/26/17 1652 [facility] IN [place] [id number] [place] [id number]
--- NOTE | 2017-05-28 14:09 | NUR ---
PTS UNIT OF BLOOD HUNG ORDERED. INSTRUCTED PT TO ALERT STAFF MEMBERS IF HAVING AN ABNORMAL SYMPTOMS. PT AGREES. WILL CONTINUE TO MONITOR AND CHECK VITAL SIGNS PER PROTOCOL.
--- NOTE | 2017-05-28 14:10 | NUR ---
1000- LOSS PREVENTION AND SAFETY MANAGER ( EDU) SITED PT WITH 20G IV CATHETER TO LEFT WRIST/FOREARM AREA X1 STICK. TOLERATED WELL. IV WILL BE USED FOR BLOOD PRODUCT ORDERED BY DR. GOLDEN.
--- NOTE | 2017-05-28 15:11 | NUR ---
1430- PT IS CURRENTLY LAYING IN BED ON RIGHT SIDE WITH EYES OPEN RESTING. BLOOD PRODUCTS ARE CURRENTLY HANGING. PT DENIES ANY DISCOMFORT AT THIS TIME. CALL LIGHT IS IN REACH. WILL CONTINUE TO MONITOR.
[2017-05-28 16:27] VITALS: BP 146/48
--- NOTE | 2017-05-28 18:30 | NUR ---
PT IS CURRENTLY SITTING UP IN BED WITH EYES OPEN RESTING. PT IS C/O 10/10 BACK PAIN. PT GIVEN MORPHINE PRN ORDERED FOR PAIN. CALL LIGHT IS IN REACH. IV IS HANGING AND INFUSING CURRENTLY (DOBUTAMINE) ORDERED. WILL CONTINUE TO MONITOR.
[2017-05-28 19:00] VITALS: BP 123/59
--- NOTE | 2017-05-28 20:40 | NUR ---
ASSISTED PT WITH BEDSIDE COMMODE.
[2017-05-29] VITALS: BP 129/51
--- NOTE | 2017-05-29 04:05 | NUR ---
PT REST QUIETLY IN BED, EYE CLOSE, BED LOW, CALL LIGHT WITHIN REACH.
[2017-05-29 05:23] LABS: BASOPHILS 0.2 % (0-2); EOSINOPHILS 2.5 % (0-7); HEMATOCRIT 27.4 % (36.0-48.0); HEMOGLOBIN 9.5 g/dL (12-16); LYMPHOCYTES 11.5 % (15-50); MCH 31.5 pg (26.0-34.0); MCHC 34.7 g/dL (31.0-37.0); MONOCYTES 7.9 % (2-11); NEUTROPHILS 76.9 % (40-80); PLATELET COUNT 97 10x3/uL (130-400); RBC 3.02 10x6/uL (4.00-5.40); WBC 5.2 10x3/uL (4.8-10.8)
[2017-05-29 05:30] LABS: MCV 90.7 fL (80.0-100.0)
[2017-05-29 05:50] LABS: ANION GAP 13.2 mmol/L (8-16); CALCIUM 8.2 mg/dL (8.5-10.1); CARBON DIOXIDE 25.5 mmol/L (21.0-32.0); CREATININE - SERUM 1.8 mg/dL (0.6-1.3); POTASSIUM - SERUM 4.7 mmol/L (3.5-5.1)
--- NOTE | 2017-05-29 07:45 | NUR ---
AM ROUNDS COMPLETED. COMMUNICATION BOARD FILLED OUT. PT RESTING QUIETLY IN BED WITH EYES CLOSED. RR NONLABORED. CL IN REACH, BED IN LOWEST, SIDE RAILS X2. WILL CHART CHECK AND CPOC.
[2017-05-29 09:18] VITALS: BP 137/50
--- NOTE | 2017-05-29 11:16 | NUR ---
NEW DOBUTAMINE DRIP HUNG ORDERED. CHANGED RATE TO 11.4ML/HR PER PTS NEW RECORDDED STANDING WEIGHT. PT LYING BACK IN BED RESTING QUIETLY. PT C/O ACHING GARCIA AND STATES SHE TAKES IBUPROFEN AT HOME WILL TRY TO OBTAIN ORDER. NO FURTHER NEEDS AT THIS TIME. CL IN REACH, BED IN LOWEST, SIDE RAILS X2. WILL CPOC.
[2017-05-29 12:35] VITALS: BP 142/47
--- NOTE | 2017-05-29 12:56 | NUR ---
ASSISTED PT TO AND FROM BEDSIDE COMMODE. PT VOIDED 200ML CLEAR YELLOW URINE. PT SITTING UP IN BED AND READY TO EAT LUNCH TRAY. PT WILL NOW HAVE HER CATH DONE TOMORROW PER . PT VERBALIZED UNDERSTANDING AND FAMILY AT BEDSIDE AWARE. NO FURTHER NEEDS AT THIS TIME. CL IN REACH, BED IN LOWEST, SIDE RAILS X2, WILL CPOC.
--- NOTE | 2017-05-29 15:22 | NUR ---
Nutrition Follow Up: Pt is scheduled for a heart cath tomorrow. She is eating 44% meal avg on a diabetic diet. +BM 05/28/17. Labs reviewed - Na low. Noted wt gain since admit. Meds noted including Humulin, Januvia. Rec continue current diet. Will continue to send selective menus and honor food preferences. RD following.
[2017-05-29 16:27] VITALS: BP 134/54
[2017-05-29 20:00] VITALS: BP 139/46
--- NOTE | 2017-05-29 20:00 | NUR ---
REPORT RECEIVED AND CARE ASSUMED. SITTING ON SIDE OF BED IN NO DISTRESS. ASSESSMENT COMPLETED PER FLOW SHEET. GETS UP TO BEDSIDE COMMODE. BED IN LOWEST POSITION, SR X 2. CALL LIGHT IN EASY REACH.
--- NOTE | 2017-05-29 21:30 | NUR ---
CONSENTS FOR HEART CATH SIGNED.
[2017-05-30] VITALS: BP 115/48
--- NOTE | 2017-05-30 00:08 | NUR ---
FLEXERIL 10 MG PO GIVEN FOR BACK SPASM @ LEVEL # 8.
[2017-05-30 04:00] VITALS: BP 129/45
[2017-05-30 04:22] LABS: BASOPHILS 0.2 % (0-2); EOSINOPHILS 2.6 % (0-7); HEMATOCRIT 27.5 % (36.0-48.0); HEMOGLOBIN 9.6 g/dL (12-16); IMMATURE GRANULOCYTES 0.6 % (0-5); LYMPHOCYTES 13.6 % (15-50); MCH 31.7 pg (26.0-34.0); MCHC 34.9 g/dL (31.0-37.0); MCV 90.8 fL (80.0-100.0); MONOCYTES 8.9 % (2-11); NEUTROPHILS 74.1 % (40-80); PLATELET COUNT 110 10x3/uL (130-400); RBC 3.03 10x6/uL (4.00-5.40); RDW 19.9 % (11.5-14.5); WBC 4.9 10x3/uL (4.8-10.8)
[2017-05-30 04:47] LABS: ANION GAP 10.4 mmol/L (8-16); CALCIUM 8.1 mg/dL (8.5-10.1); CARBON DIOXIDE 26.4 mmol/L (21.0-32.0); CREATININE - SERUM 1.7 mg/dL (0.6-1.3); POTASSIUM - SERUM 4.8 mmol/L (3.5-5.1)
[2017-05-30 07:31] VITALS: BP 109/65
--- NOTE | 2017-05-30 08:00 | NUR ---
AM ROUNDING- RECEIVED REPORT FROM QUALITY CONTROL AUDITOR NURSE KHUSHBOO. PT IS CURRENTLY LAYING IN BED WITH EYES OPEN RESTING READING NEWSPAPER CURRENTLY. CHANGED PTS DOBUTAMINE (5MCG/KG/MIN ORDERED WITH DAILY WT OF 76.88KG TODAY) DRIP TO 11.5 ORDERED TO LEFT WRIST. ON 02 AT 2L VIA NC. ON MONITOR SHOWING SR, HR 73. PT IS NPO CURRENTLY FOR PROCEDURE (CARDIAC CATH) TODAY PER REPORT. CONSENTS ARE SIGNED AND IN CHART. WILL CONTINUE TO MONITOR AND CONTINUE WITH PLAN OF CARE.
--- NOTE | 2017-05-30 09:21 | NUR ---
PT GIVEN PRE-OP MEDICATIONS WITH SIP OF WATER REQUESTED BY K 9 HANDLER/ DEPUTY.
--- NOTE | 2017-05-30 11:46 | NUR ---
PT TO YOUTH CARE PROFESSIONAL VIA BED.
[2017-05-30 12:39] VITALS: BP 134/50
--- NOTE | 2017-05-30 13:01 | NUR ---
1228- RECEIVED REPORT FROM BART IN [facility]. WILL AWAIT PT ARRIVAL. 1245- PT BACK FROM [facility] VIA BED. PT IS LETHARGIC. INFORMED PT THAT IT IS VERY IMPORTANT THAT SHE LAYS FLAT FOR ATLEAST FOUR HOURS, PT AGREES. CLEAN, DRY, AND INTACT DRESSING SEEN TO RIGHT GROIN AREA. FREQUENT VITAL SIGNS STARTED PER POLICY. IV FLUIDS RESTARTED ORDERED. FAMILY MEMBERS ARE AT BEDSIDE. WILL CONTINUE TO MONITOR.
--- NOTE | 2017-05-30 13:03 | NUR ---
1230- BART FROM STICK WELDER INFORMED ME THAT IT IS OK PER JENNIFER FROM PHARMACY TO RUN NS AND PTS DOBUTAMINE DRIP ORDERED AFTER I QUESTIONED RUNNING BOTH TOGETHER. BART STATES JENNIFER FROM PHARMACY STATES IT IS FINE TO Y-SITE DOBUTAMINE TO PRIMARY NS FLUIDS PER ORDER. WILL DO ORDERED AND CONTINUE TO MONITOR.
--- NOTE | 2017-05-30 14:52 | NUR ---
PT IS CURRENTLY LAYING IN BED ON BACK WITH EYES OPEN RESTING. ELEVATED HOB SLIGHTLY TO 10 DEGREES. PT IS LAYING FLAT. DRESSING TO RIGHT GROIN IS CLEAN, DRY, AND INTACT. VITAL SIGNS BEING TAKEN PER PROTOCOL. WILL CONTINUE TO MONITOR.
[2017-05-30 15:46] VITALS: BP 142/60
--- NOTE | 2017-05-30 15:59 | NUR ---
PT IS LAYING IN BED WITH EYES OPEN RESTING. NO BLEEDING SEEN FROM PROCEDURE SITE (RIGHT GROIN). DRESSING IS CLEAN, DRY, AND INTACT. WILL CONTINUE TO MONITOR.
--- NOTE | 2017-05-30 18:19 | NUR ---
PT IS CURRENTLY SITTING UP IN BED WITH EYES OPEN RESTING. PT DENIES ANY NEED AT CURRENT TIME. WILL CONTINUE TO MONITOR.
--- NOTE | 2017-05-30 18:27 | NUR ---
1730- PT IS LAYING IN BED ON BACK WITH EYES OPEN RESTING. DRESSING TO GROIN IS CLEAN, DRY, AND INTACT. PT HAS BEEN LAYING IN BED FOR APPROX 4 HOURS SINCE CARDIAC CATH. NO NEED AT CURRENT TIME. WILL CONTINUE TO MONITOR.
[2017-05-30 20:00] VITALS: BP 138/43
--- NOTE | 2017-05-30 22:00 | NUR ---
INITIAL ROUNDS COMPETLED AT 1920 HRS. PT DENIED ANY DISCOMFORT. PT UP TO BSC AT 1945 HRS. LARGW AMOUNT OF BM NOTED ON BED AN FLOOR. PT AND FLOOR CLEANED. BED LINENS CHANGED. ASSISTED PT BACK TO BED. ASSESSMENT COMPLETED AT 2019 HRS. VSS. SR PER CM HR 73. R GROIN CLEAN, DRY AND INTACT WITHOUT SWELLING, BLEEIG OR BRUISING. PALPABLE PEDAL PULSES. 1+ EDEMA TO LOWER EXTREMITIES BILAT. BILAT LOWER LEGS RED WITH SMALL SORES NOTED TO L MATOS. IV TO L HAND WITH DOBUTREX AT 5MCQ/KG/MIN (11.5CC/HR). IV PATENT. LUNGS DIMINISHED IN BASES BILAT. BRUISING NOTED TO BILAT ARMS. PM FSBS 115. NO COVERAGE NEEDED. PM MEDS GIVEN. PM SNACK SERVED. PT CURRENTLY RESTING WITH EYES CLOSED. RESP EVEN AND REGULAR. SR UP X2, CALL LIGHT WITHIN REACH.
[2017-05-31] VITALS: BP 129/40
--- NOTE | 2017-05-31 00:28 | NUR ---
FLEXERIL 10MG AND 1MG MORPHNE AIVP GIVEN AT 2322 HRS FOR C/O SEVERE GARCIA. PT CURRENTLY REATING WTIH EYES CLOSED. RESP EVEN AND REGULAR. SR UP X2, CALL LIGHT WITHIN REACH.
--- NOTE | 2017-05-31 03:29 | NUR ---
PT RESTING WITH EYES CLOSED. RESP EVEN AND REGULAR. SR UP X2,CALL LIGHT WITHIN REACH.
[2017-05-31 04:00] VITALS: BP 183/51
--- NOTE | 2017-05-31 06:10 | NUR ---
VSS THROUGHOUT NIGHT. PT STATED FLEXERIL AND MORPHNE ALLEVIATED GARCIA. AM FSBS 102. NO COVERAGE NEEDED.NEEDS MET; WILL CONTIUE TO MONITOR.
[2017-05-31 07:23] LABS: BASOPHILS 0.2 % (0-2); EOSINOPHILS 2.2 % (0-7); HEMATOCRIT 28.1 % (36.0-48.0); HEMOGLOBIN 9.5 g/dL (12-16); IMMATURE GRANULOCYTES 0.8 % (0-5); LYMPHOCYTES 10.9 % (15-50); MCH 31.1 pg (26.0-34.0); MCHC 33.8 g/dL (31.0-37.0); MCV 92.1 fL (80.0-100.0); MONOCYTES 11.1 % (2-11); NEUTROPHILS 74.8 % (40-80); PLATELET COUNT 124 10x3/uL (130-400); RBC 3.05 10x6/uL (4.00-5.40); RDW 20.1 % (11.5-14.5); WBC 4.9 10x3/uL (4.8-10.8)
[2017-05-31 07:33] LABS: ANION GAP 10.3 mmol/L (8-16); CALCIUM 8.3 mg/dL (8.5-10.1); CREATININE - SERUM 1.5 mg/dL (0.6-1.3); POTASSIUM - SERUM 5.3 mmol/L (3.5-5.1)
--- NOTE | 2017-05-31 07:36 | NUR ---
0712-AM ROUNDING DONE WITH PATIENT APPEARING TO BE ALSEEP. RESP ARE EVEN AND NON LABORED. LAYING ON LEFT SIDE WITH O2 AT 2L PER NC. DOBUTREX INFUSING TO LEFT WRIST AT 11.5 CC/HR. ON HEART MONITOR SHOWING SR, HR 68. WILL CPOC.
[2017-05-31 08:00] VITALS: BP 141/63
[2017-05-31 12:00] VITALS: BP 137/55
--- NOTE | 2017-05-31 12:31 | OP ---
PATIENT NAME: INDIA ELLIS MEDICAL RECORD: [id number] :47 LOCATION:D.M2 D.2110 ADMISSION DATE:05/26/17 SURGEON: JED GOLDEN MD DATE OF OPERATION: 05/30/2017 PROCEDURES: 1. PTCA stent vein graft to the LAD. 2. Left heart catheterization. 3. Selective coronary angiography. 4. Left ventriculogram. 5. Vein graft angiography. INDICATION: Unstable angina, cardiomyopathy, congestive heart failure. DESCRIPTION OF PROCEDURE: After informed consent was obtained and after a detailed explanation of the risks, benefits as well as alternatives therapies, the patient elected to proceed with angiogram and angioplasty. The right femoral area was prepped and draped in normal sterile fashion. The right femoral artery was cannulated via modified Seldinger technique with placement of 6-[place]ican sheath. All catheters exchanged through this sheath. FINDINGS: The left ventriculogram was performed in standard 30-degree LEAL view, reveals global hypokinesis, ejection fraction is 30%. SELECTIVE CORONARY ANGIOGRAPHY: 1. Left main is with no significant angiographic disease. 2. Left anterior descending is totally occluded. 3. The left circumflex is totally occluded. 4. Right coronary has a 70+ percent stenosis proximal vessel, this vessel was not grafted. 5. Vein graft to the left anterior descending is patent; however, there is 85% mid shaft stenosis, 90% distal stenosis. 6. Vein graft to the circumflex is closed. PTCA STENT OF THE VEIN GRAFT TO THE LAD: The stent used was a 3.5 x 18 and a 2.5 x 15 both Diamond stents. Result was 0% residual stenosis. OVERALL IMPRESSION: Successful percutaneous transluminal coronary angioplasty stent of the vein graft to the left anterior descending going from 90% initial stenosis to 0% residual. PLAN: PTCA stent of the RCA in the near future. TRANSINT:[id number] Voice Confirmation ID: [id number] DOCUMENT ID: [id number] JED GOLDEN MD at 1231 CC: [id number] DICTATION DATE: 05/30/17 1221 CASE RESOLUTION SPECIALIST: 05/30/17 2147 ADM IN [facility] [address] [place] [address]
--- NOTE | 2017-05-31 14:39 | NUR ---
DENIES NEEDS AT PRESENT TIME. WILL CONTINUE TO MONITOR.
[2017-05-31 16:00] VITALS: BP 146/57
[2017-05-31 16:06] LABS: ANION GAP 7.5 mmol/L (8-16); CALCIUM 8.1 mg/dL (8.5-10.1); CARBON DIOXIDE 29.8 mmol/L (21.0-32.0); CREATININE - SERUM 1.6 mg/dL (0.6-1.3); POTASSIUM - SERUM 5.3 mmol/L (3.5-5.1)
--- NOTE | 2017-05-31 18:03 | NUR ---
CALLED TO ROOM WITH PATIENT STATING THAT SHE FEELS "SICK TO MY STOMACH". NO ZOFRAN ON EMAR. PAGED DR DRIVER TO CALL FOR NEW ORDERS. AWAITING CALL BACK.
--- NOTE | 2017-05-31 18:06 | NUR ---
DR DRIVER TO CALL BACK WITH NEW ORDERS.
[2017-05-31 20:00] VITALS: BP 173/56
--- NOTE | 2017-05-31 23:17 | NUR ---
INITIAL ROUNDS COMPLETED AT 1920 HRS. PT DENIED ANY DISCOMFORT. ASSESSMETN COMPELTD AT 2005 HRS. VSS. SR PER CM HR 74. O2 2LNC. LUNGS DIMINISHED IN BASES BILAT. BRUISES NOTED TO BILAT ARMS. IV TO LFA WITH DOBUTREX AT 5MCQ/KG/MIN (11.5CC/HR). IV PATENT. 1+ PEDAL EDEMA. HARLEY .R GROIN CLEAN, DRY AND INTACT. PM FSBS 193. PT REFUSED SLIDING SCALE BUT AGREED TO LANTUS 80 UITS SUB-Q. PM MEDS GIVNE AND PM SNACK SERVED. PT CURRENTLY WATCHING TV. WILL CONTINUE TO MONITOR. SR UP X2, CALL LIGHT WITHIN REACH.
[2017-06-01] VITALS: BP 130/80
--- NOTE | 2017-06-01 02:41 | NUR ---
PT SITTING ON SIDE OF BED. NO DISTRESS NOTED. WILL CONTINUE TO MONITOR.
[2017-06-01 04:00] VITALS: BP 134/54
--- NOTE | 2017-06-01 04:49 | NUR ---
PT RESTING WIT EYES CLOSED. RESP EVEN AND REGULAR. SR UP X2, CALL LIGHT WITHIN REACH.
--- NOTE | 2017-06-01 06:00 | NUR ---
VSS THROUGHUOT NGIHT. SR PER CM. PT STATES FLEXERIL HELPED BACK PAIN. AM FSBS 127. NO COVERAGE NEEDED. NEEDS MET; WILL CONTINUE TO MONITOR.
--- NOTE | 2017-06-01 07:16 | NUR ---
AM ROUNDING WITH PATIENT APPEARING SLEEP WITH RESP ARE EVEN AND NON LABORED. LAYING ON RIGHT SIDE. ON HEART MONITOR SHOWING SR, HR 67. ON 2L PER NC. DOBUTREX SEEN INFUSING TO LEFT FA AT 11.5 CC/HR. WILL CPOC.
[2017-06-01 08:00] VITALS: BP 129/43
--- NOTE | 2017-06-01 10:30 | NUR ---
RESTING ON LEFT SIDE WITH EYES CLOSED. RESP ARE EVEN AND NON LABORED. DAUGHTER AT BEDSIDE. WILL CONTINUE TO MONITOR.
[2017-06-01 12:00] VITALS: BP 107/38
[2017-06-01 13:32] LABS: BASOPHILS 0.2 % (0-2); EOSINOPHILS 2.4 % (0-7); HEMATOCRIT 27.8 % (36.0-48.0); HEMOGLOBIN 9.1 g/dL (12-16); IMMATURE GRANULOCYTES 0.4 % (0-5); LYMPHOCYTES 9.4 % (15-50); MCH 30.8 pg (26.0-34.0); MCHC 32.7 g/dL (31.0-37.0); MCV 94.2 fL (80.0-100.0); MEAN PLATELET VOLUME 13.3 fL (7.4-10.4); MONOCYTES 8.9 % (2-11); NEUTROPHILS 78.7 % (40-80); PLATELET COUNT 112 10x3/uL (130-400); RBC 2.95 10x6/uL (4.00-5.40); RDW 20.1 % (11.5-14.5); WBC 5.1 10x3/uL (4.8-10.8)
[2017-06-01 13:45] LABS: ANION GAP 10.1 mmol/L (8-16); CALCIUM 7.9 mg/dL (8.5-10.1); CARBON DIOXIDE 28.1 mmol/L (21.0-32.0); CREATININE - SERUM 1.7 mg/dL (0.6-1.3)
[2017-06-01 13:48] LABS: POTASSIUM - SERUM 6.2 mmol/L (3.5-5.1)
--- NOTE | 2017-06-01 14:26 | NUR ---
1350-CRITICAL LAB RESULT OF 6.2 K+. ELHAM WATT IS HERE ON FLOOR AND MADE AWARE OF THIS. AWAITING NEW ORDERS.
--- NOTE | 2017-06-01 14:47 | NUR ---
PATIENT IS UP IN THE CHAIR. REQUESTING CUP OF ICE, GIVEN. VOICES NO OTHER NEEDS AT PRESENT TIME.
--- NOTE | 2017-06-01 15:35 | NUR ---
URINE SENT TO LAB ORDERED.
[2017-06-01 16:00] VITALS: BP 122/37
--- NOTE | 2017-06-01 17:54 | NUR ---
IN CHAIR WITH FAMILY PRESENT. DENIES ANY NEEDS AT THIS TIME.
[2017-06-01 20:00] VITALS: BP 135/61
--- NOTE | 2017-06-01 20:02 | NUR ---
PT SITTING ON SIDE OF BED. DOUBTamine INFUSING TO LEFT FOREARM IV 11.5ML/HR. PT STILL HAS NOT HAD A BOWEL MOVEMENT. PT VERBALIZED UNDERSTANDING ABOUT FLUID RESTRICTION, PT DENIES ANY NEEDS AT THIS TIME. NO S/S OF DISTRESS. WILL CONTINUE TO MONITOR
[2017-06-02] VITALS: BP 142/53
--- NOTE | 2017-06-02 00:52 | NUR ---
PT ASLEEP. RESPIRATIONS EVEN AND UNLABORED. NO S/S OF DISTRESS. PT LAYING ON BACK WILTH FEET UP ON PILLOWS TO HELP WITH SWELLING. BED LOW CALLLIGHT WITHIN REACH. WILL CONTINUE TO MONITOR
[2017-06-02 06:08] LABS: BASOPHILS 0.2 % (0-2); EOSINOPHILS 2.4 % (0-7); HEMATOCRIT 28.6 % (36.0-48.0); HEMOGLOBIN 9.8 g/dL (12-16); IMMATURE GRANULOCYTES 0.6 % (0-5); LYMPHOCYTES 9.7 % (15-50); MCH 31.4 pg (26.0-34.0); MCHC 34.3 g/dL (31.0-37.0); MEAN PLATELET VOLUME 12.7 fL (7.4-10.4); NEUTROPHILS 77.1 % (40-80); RBC 3.12 10x6/uL (4.00-5.40); RDW 19.8 % (11.5-14.5)
[2017-06-02 06:09] LABS: MCV 91.7 fL (80.0-100.0); PLATELET COUNT 145 10x3/uL (130-400); WBC 6.4 10x3/uL (4.8-10.8)
[2017-06-02 06:24] LABS: ANION GAP 11.9 mmol/L (8-16); CARBON DIOXIDE 28.2 mmol/L (21.0-32.0); CREATININE - SERUM 1.6 mg/dL (0.6-1.3)
--- NOTE | 2017-06-02 06:31 | NUR ---
PT C/O FEELING LOW BLOODSUGAR. FSBS 68. A TUBE OF INSTA GLUCOSE GIVEN PER ORDERS. WILL CHECK BLOOD SUGAR AGAIN IN 30 MINS
[2017-06-02 06:54] LABS: POTASSIUM - SERUM 5.1 mmol/L (3.5-5.1)
[2017-06-02 08:00] VITALS: BP 143/56
--- NOTE | 2017-06-02 09:00 | NUR ---
ALERT AND ORIENTED X4. DC LT FA IV TIP INTACT. IV RESITE RT HAND 20G SUCCESSFUL X1 ATTEMPT. AT BEDSIDE. DENIES ANY NEEDS AT THIS TIME. SINUS RHYTHM 75bpm ON TELEMETRY. FSBS 70. CONTINUE PLAN OF CARE. BED LOCKED AND LOW. CALL LIGHT IN REACH. TWO SIDERAILS UP.
[2017-06-02 12:00] VITALS: BP 129/55
[2017-06-02 16:00] VITALS: BP 153/65
--- NOTE | 2017-06-02 17:25 | NUR ---
Patient Name: INDIA ELLIS Admission Status: ER Accout number: [id number] Admission Date: 05-26-2017 : 1945 Admission Diagnosis:SHORTNESS OF BREATH Attending: DAVID Current LOS: 7 Anticipated DC Date: Planned Disposition: Home with Home Health Primary Insurance: MEDICARE A & B PLANNED EXTERNAL PROVIDER: [facility] Discharge Planning Comments: * Is the patient Alert and Oriented? Yes 0 * How many steps to enter\exit or inside your home? 6 0 * PCP DR. BIRD 0 * Pharmacy [facility] 0 * Preadmission Environment Home with Family 0 * ADLs Independent 0 * Equipment Bedside Commode Cane Oxygen Shower Chair Walker 0 * Other Equipment PORTABLE OXYGEN CONCENTRATOR UNKNOWN MEDICAL EQUIPMENT PROVIDER 0 * List name and contact numbers for known caregivers / representatives who currently or will assist patient after discharge: KIMBERLY ELLIS, SPOUSE, 0 * Community resources currently utilized None 0 * Please name any agencies selected above. NONE 0 * Additional services required to return to the preadmission environment? No 0 * Can the patient safely return to the preadmission environment? Yes 0 * Has this patient been hospitalized within the prior 30 days at any hospital? No 0 CM MET WITH PT IN ROOM TO DISCUSS DISCHARGE PLANNING AND NEEDS. PT REPORTS LIVING AT HOME INDEPENDENTLY WITH HER SPOUSE. PT HAS PORTABLE OXGYEN CONCENTRATOR, SHOWER CHAIR, CANE, BEDSIDE COMMODE AND WALKER; PT CANNOT REMEMBER THE NAME OF HER MEDICAL EQUIPMENT PROVIDER. PT HAS NO OUTSIDE SERVICES ASSISTING IN THE HOME. CM DISCUSSED AVAILABILITY OF HOME HEALTH, REHAB SERVICES AND MEDICAL EQUIPMENT. PT REPORTS SHE WOULD LIKE HOME HEALTH FOR NURSING FOLLOW UP AFTER DISCHARGE HOME, DENIES NEED FOR THERAPY SERVICES. PT HAS HAD [facility] IN THE PAST AND WOULD LIKE THEM AGAIN, CHOICE SIGNED. PT, REPORTS HER SPOUSE WILL PICK HER UP FOR DISCHARGE HOME. IMPORTANT MESSAGE FROM MEDICARE PROVIDED AND EXPLAINED. CM TO ARRANGE HOME HEALTH WITH [facility] IF DOCTOR AGREES AND PROVIDES HOME HEALTH ORDERS. CM TO FOLLOW AND ASSIST IF NEEDED. Gas Engineer: Gabo Freedman
--- NOTE | 2017-06-02 19:40 | NUR ---
PT RESTING IN BED. DOBUTamine INFUSING TO RIGHT HAND @ 11.5. 1L O2 VIA NC. AMBULATE TO BSC SELF. STANDBYE ASSIST. PT HAS RED BUTTOCK. WILL GET CREAM. PT DENIES ANY NEEDS, NO S/S OF DISTRESS WILL CONTINUE TO MONITOR
[2017-06-02 20:00] VITALS: BP 89/56
[2017-06-03] VITALS: BP 154/64
--- NOTE | 2017-06-03 01:06 | NUR ---
PT ASLEEP. RESPIRATIONS EVEN AND UNLABORED NO S/S OF DISTRESS.BED LOW CALL LIGHT WITHIN REACH WILL CPOC
[2017-06-03 04:00] VITALS: BP 120/52
[2017-06-03 05:31] LABS: BASOPHILS 0.2 % (0-2); EOSINOPHILS 2.9 % (0-7); HEMATOCRIT 27.4 % (36.0-48.0); HEMOGLOBIN 9.3 g/dL (12-16); IMMATURE GRANULOCYTES 0.5 % (0-5); MCHC 33.9 g/dL (31.0-37.0); MCV 91.3 fL (80.0-100.0); MEAN PLATELET VOLUME 12.7 fL (7.4-10.4); MONOCYTES 5.8 % (2-11); NEUTROPHILS 79.6 % (40-80); PLATELET COUNT 146 10x3/uL (130-400); RDW 19.7 % (11.5-14.5); WBC 5.8 10x3/uL (4.8-10.8)
[2017-06-03 05:46] LABS: ANION GAP 12.1 mmol/L (8-16); CARBON DIOXIDE 27.3 mmol/L (21.0-32.0); CREATININE - SERUM 1.2 mg/dL (0.6-1.3); POTASSIUM - SERUM 5.4 mmol/L (3.5-5.1)
--- NOTE | 2017-06-03 06:09 | NUR ---
PT HAS BLOOD SUGAR OF 62. PROTOCOL FOLLOWED. INSTA GLUCOSE PO GIVEN. APPLE JUCIE AND VANILLA WAFFERS GIVEN. NO S/S OF DISTRESS. CPOC
--- NOTE | 2017-06-03 07:46 | NUR ---
PT BLOOD SUGAR UP TO 98. CPOC
[2017-06-03 11:00] VITALS: BP 132/45
[2017-06-03 12:43] VITALS: BP 115/49
--- NOTE | 2017-06-03 13:30 | NUR ---
Nutrition follow-up: Diet: ADA consistent CHO PO intake ~70% average of last 8 meals Labs reviewed +BM Wt: 179# RDN following.
--- NOTE | 2017-06-03 13:37 | NUR ---
QUESTIONS REGUARDING STENTS AND WHEN DOCTOR IS PLANNING ON DOING SO. OUT OF TOWN UNTIL FRIDAY. CALL HEALTH TECHNICAL WRITER TO VERIFY SCEDULING. NOT ON SCHEDULE. IF PATIENT STAYS INPATIENT, CRESENCIO GOLDEN WITH PLACE STENT FRIDAY WHEN HE RETURNS. IF PATIENT DISCHARGED, 'S OFFICE WILL CALL AND SCHEDULE OUTPATIENT. INFORM REQUESTED. CONTINUE PLAN OF CARE AND SAFETY PRECAUTIONS.
[2017-06-03 16:50] VITALS: BP 118/55
--- NOTE | 2017-06-03 18:15 | NUR ---
ALERT AND ORIENTED X4. SITTING UP IN BED READING A BOOK. NO CHANGE. DENIES ANY NEEDS. BED LOCKED AND LOW. CALL LIGHT IN REACH. SINUS RHTHYM 76bpm ON TELEMETRY. CONTINUE PLAN OF CARE.
--- NOTE | 2017-06-03 19:24 | NUR ---
PT ASLEEP. RESPIRATIONS EVEN AND UNLABORED. O2 1L NC. DOBUTamine INFUSING TO RIGHT HAND @ 11.5. NO S/S OF DISTRESS. BED LOW AND CALLLIGHT WITHIN REACH. WILL CPOC
[2017-06-03 20:00] VITALS: BP 99/47
--- NOTE | 2017-06-03 21:32 | NUR ---
PT RESTING. STATES SHE IS GOING TO SLEEP AFTER MEDS ARE GIVEN. PT DID NOT NEED REG INSULIN PER SLIDING SCALE. LANTUS NOT GIVEN AFTER DISCUSSING WITH PT ABOUT HER DROPPING BELOW 70 LAST 2 NIGHT. PT VERBALIZES AGREEMENT. STATES SHE WILL CALL IF SHE FEELS SHE NEEDS HER BLOOD SUGAR CHECKED. PT DENIES ANY NEEDS AT THIS TIME. STATES SHE JUST WANTS TO GET SOME SLEEP. NO S/S OF DISTRESS BED LOW CALLLIGHT WITHIN REACH. WILL CPOC
[2017-06-04] VITALS: BP 97/52
--- NOTE | 2017-06-04 01:52 | NUR ---
PT ASLEEP. RESPIRATIONS EVEN AND UNLABORED. NO S/S OF DISTRESS. BED LOW AND CALL LIGHT WITHIN REACH. WILL CPOC
[2017-06-04 04:00] VITALS: BP 122/50
[2017-06-04 06:06] LABS: BASOPHILS 0.2 % (0-2); EOSINOPHILS 3.7 % (0-7); HEMATOCRIT 26.8 % (36.0-48.0); IMMATURE GRANULOCYTES 0.5 % (0-5); MCH 31.1 pg (26.0-34.0); MCHC 33.6 g/dL (31.0-37.0); MCV 92.7 fL (80.0-100.0); MEAN PLATELET VOLUME 13.2 fL (7.4-10.4); NEUTROPHILS 79.6 % (40-80); PLATELET COUNT 137 10x3/uL (130-400); RBC 2.89 10x6/uL (4.00-5.40); RDW 19.9 % (11.5-14.5); WBC 6.5 10x3/uL (4.8-10.8)
[2017-06-04 06:32] LABS: ANION GAP 10.9 mmol/L (8-16); CALCIUM 7.9 mg/dL (8.5-10.1); CARBON DIOXIDE 27.3 mmol/L (21.0-32.0); CREATININE - SERUM 1.6 mg/dL (0.6-1.3); POTASSIUM - SERUM 5.2 mmol/L (3.5-5.1)
--- NOTE | 2017-06-04 07:04 | NUR ---
PT RESTING IN ROOM. NO COVERAGE NEEDED THIS MORNING FOR A BLOODSUGAR OF 114. PT DENIES ANY NEEDS. 1L O2 NC STILL ON. RIGHT HAND IV STILL INFUSING DOBUTamine @ 11.5. PT HAS GLADYS IN SMALL MED CUP FOR RED BUTTOCK. PT KNOWS IS THERE. BED LOW CALLLIGHT IN REACH. WILL CPOC
[2017-06-04 08:00] VITALS: BP 104/56
[2017-06-04 12:00] VITALS: BP 118/61
--- NOTE | 2017-06-04 12:00 | NUR ---
ALERT AND ORIENTED X4. AT BEDSIDE. RT HAND IV INFILTRATED. DC RT HAND IV. RESITE IV RT WRIST SUCCESSFUL X1 ATTEMPT. CONTINUE DOBUTAMINE DRIP ORDERED. DRIP STILL NEEDS ADDRESSED WITH DEMAND INSPECTOR. DENIES ANY NEEDS. BED LOCKED AND LOW. CALL LIGHT IN REACH. TWO SIDERAILS UP. SINUS RHTHYM 96bpm ON TELEMETRY.
[2017-06-04 16:00] VITALS: BP 122/66
--- NOTE | 2017-06-04 19:48 | NUR ---
FLUSHED IV WITH 5ML OF A SALINE FLUSH, ASPIRATED BLOOD RETURN FLUSHED WITH THE REMAINDER 5ML OF THE SALINE FLUSH.
[2017-06-04 21:52] VITALS: BP 135/72
--- NOTE | 2017-06-05 04:26 | NUR ---
ASSISTED PATIENT UP TO BEDSIDE COMMODE, HANDED HER THE CALL LIGHT TOLD HER TO PUSH IT WHEN SHE IS FINISHED
--- NOTE | 2017-06-05 04:32 | NUR ---
PATIENT PUSHED HER CALL LIGHT. ASSISTED PATIENT BACK TO BED. EMPTIED 300ML FROM BEDSIDE COMMODE. URINE IS DARK YELLOW, CONCENTRATED AND ODOROUS. BED IN LOWEST POSITION, CALL LIGHT IN REACH. BED RAILS UP X'S 2. BED ALARM ON. DOOR OPEN.
[2017-06-05 05:42] LABS: BASOPHILS 0.2 % (0-2); EOSINOPHILS 3.4 % (0-7); HEMATOCRIT 26.1 % (36.0-48.0); HEMOGLOBIN 8.7 g/dL (12-16); IMMATURE GRANULOCYTES 0.7 % (0-5); MCHC 33.3 g/dL (31.0-37.0); MCV 92.9 fL (80.0-100.0); MEAN PLATELET VOLUME 12.5 fL (7.4-10.4); MONOCYTES 7.8 % (2-11); NEUTROPHILS 78.9 % (40-80); PLATELET COUNT 126 10x3/uL (130-400); RBC 2.81 10x6/uL (4.00-5.40); RDW 19.9 % (11.5-14.5); WBC 5.9 10x3/uL (4.8-10.8)
[2017-06-05 05:50] LABS: ANION GAP 13.5 mmol/L (8-16); CREATININE - SERUM 1.6 mg/dL (0.6-1.3); POTASSIUM - SERUM 5.5 mmol/L (3.5-5.1)
[2017-06-05 06:10] VITALS: BP 122/55
--- NOTE | 2017-06-05 08:02 | NUR ---
AM ROUNDS - PT IN BED AND APPEARS TO BE SLEEPING. IV TO RIGHT WRIST, DOBUTAMINE AT 11.5CC/HR. O2 AT 1L VIA NC. MONITOR SHOWS SR, HR 85. BED AT LOWEST POSITION. CALL VIRGEN IN USE/REACH. SIDE RAILS UP X2. WILL CONTINUE TO MONITOR
[2017-06-05 12:00] VITALS: BP 131/67
--- NOTE | 2017-06-05 13:17 | NUR ---
Nutrition Follow Up: Pt was asleep at the time of RD visit. Interview deferred at this time. Pt is eating 53% meal avg on a Renal ADA diet with low K+; 1200 ml FR. No free water allowed. +BM 06/04/17. Wt gain since admit. Labs reviewed. Meds noted. Rec continue current diet. Rec consider an appetite stimulant. Will continue to provide selective menus and honor food preferences within diet ordered. RD following.
[2017-06-05 15:00] LABS: % SATURATION 13 % (15-55); IRON 30 ug/dl (35-150); TOTAL IRON BIND CAPACITY 223 ug/dl (260-445); UNSAT IRON BIND CAPACITY 193 ug/dl (150-375)
--- NOTE | 2017-06-05 19:40 | NUR ---
PT. IN BED WITH HOB UP FOR COMFORT. ASSESSMENT COMPLETED. PT. STILL HAS A HEADACHE AND REQUESTING SOMETHING FOR RELIEF. PT. STILL REFUSING SCD'S AT THIS TIME DUE TO 3+ PITTING EDEMA TO BLE'S. CALL LIGHT WITHIN REACH.
[2017-06-05 21:40] VITALS: BP 131/53
[2017-06-06 01:20] VITALS: BP 125/59
--- NOTE | 2017-06-06 03:24 | NUR ---
PT IN BED WITH HOB UP FOR COMFORT AND LYING ON HER LEFT SIDE. EYES CLOSED AND RESP. EVEN. CALL LIGHT WITHIN REACH.
--- NOTE | 2017-06-06 05:28 | NUR ---
FSBS 84 AND TREATED WITH [facility]'S APPLE JUICE. PT. DOESN'T EAT MANAN CRACKERS.
[2017-06-06 05:43] VITALS: BP 134/53
[2017-06-06 08:12] LABS: BASOPHILS 0.1 % (0-2); EOSINOPHILS 3.7 % (0-7); HEMATOCRIT 26.4 % (36.0-48.0); HEMOGLOBIN 8.6 g/dL (12-16); IMMATURE GRANULOCYTES 0.9 % (0-5); LYMPHOCYTES 9.3 % (15-50); MCH 30.8 pg (26.0-34.0); MCHC 32.6 g/dL (31.0-37.0); MCV 94.6 fL (80.0-100.0); MEAN PLATELET VOLUME 12.8 fL (7.4-10.4); MONOCYTES 7.7 % (2-11); NEUTROPHILS 78.3 % (40-80); PLATELET COUNT 117 10x3/uL (130-400); RBC 2.79 10x6/uL (4.00-5.40); RDW 19.9 % (11.5-14.5); WBC 6.8 10x3/uL (4.8-10.8)
--- NOTE | 2017-06-06 08:16 | NUR ---
UP ON BSC. NO DISTRESS. WILL CONITNUE TO MONITOR.
[2017-06-06 08:44] VITALS: BP 112/56
[2017-06-06 08:49] LABS: ANION GAP 15.3 mmol/L (8-16); CALCIUM 7.6 mg/dL (8.5-10.1); CARBON DIOXIDE 22.9 mmol/L (21.0-32.0); CREATININE - SERUM 1.8 mg/dL (0.6-1.3)
[2017-06-06 09:06] LABS: POTASSIUM - SERUM 6.2 mmol/L (3.5-5.1)
[2017-06-06 12:04] VITALS: BP 107/56
[2017-06-06 16:25] LABS: CALCIUM 7.8 mg/dL (8.5-10.1); CARBON DIOXIDE 25.4 mmol/L (21.0-32.0); MAGNESIUM - SERUM 2.8 mg/dL (1.8-2.4)
[2017-06-06 16:36] LABS: POTASSIUM - SERUM 6.4 mmol/L (3.5-5.1)
[2017-06-06 19:00] VITALS: BP 122/49
--- NOTE | 2017-06-06 21:50 | NUR ---
SIT UP IN BED AND DO PUZZLE GAMES IN BOOK.
--- NOTE | 2017-06-07 02:56 | NUR ---
PT IV SITE INFILTRATED, TAKE OUT INFILTRATED IV AND WILL START OTHER IV.
[2017-06-07 04:00] VITALS: BP 139/61
--- NOTE | 2017-06-07 04:05 | NUR ---
NURSE PONCE RESTART IV IN PT'S RT AC.
[2017-06-07 05:23] LABS: BASOPHILS 0.3 % (0-2); EOSINOPHILS 4.3 % (0-7); HEMOGLOBIN 8.9 g/dL (12-16); IMMATURE GRANULOCYTES 1.4 % (0-5); LYMPHOCYTES 8.4 % (15-50); MCH 31.6 pg (26.0-34.0); MCHC 34.2 g/dL (31.0-37.0); MEAN PLATELET VOLUME 12.9 fL (7.4-10.4); MONOCYTES 8.4 % (2-11); NEUTROPHILS 77.2 % (40-80); PLATELET COUNT 131 10x3/uL (130-400); RBC 2.82 10x6/uL (4.00-5.40); RDW 19.4 % (11.5-14.5); WBC 6.4 10x3/uL (4.8-10.8)
[2017-06-07 05:24] LABS: MCV 92.2 fL (80.0-100.0)
[2017-06-07 05:36] LABS: CALCIUM 7.8 mg/dL (8.5-10.1); CARBON DIOXIDE 25.7 mmol/L (21.0-32.0); CREATININE - SERUM 2.1 mg/dL (0.6-1.3); MAGNESIUM - SERUM 2.7 mg/dL (1.8-2.4); PHOSPHOROUS 5.4 mg/dL (2.5-4.9); POTASSIUM - SERUM 5.7 mmol/L (3.5-5.1)
--- NOTE | 2017-06-07 07:00 | NUR ---
INITIAL ROUNDS MADE. PT SITTING UP IN BED WATCHING TV WITH FAMILY AT BEDSIDE. PT DENIES NEEDS OR C/O AT THIS TIME. TELE SR. O2 1L NC. DISCUSSED PLAN OF CARE AND FLUID RESTRICTION. WILL CONT TO MONITOR.
[2017-06-07 08:00] VITALS: BP 135/55
[2017-06-07 12:00] VITALS: BP 122/54
--- NOTE | 2017-06-07 12:00 | NUR ---
FSBS 176, 4 UNITS INS GIVEN PER SS. AT BEDSIDE. NO NEEDS OR C/O AT THIS TIME. WILL CONT TO MONITOR.
--- NOTE | 2017-06-07 15:00 | NUR ---
ASSISTED PT UP TO BSC.
[2017-06-07 16:00] VITALS: BP 123/59
--- NOTE | 2017-06-07 17:00 | NUR ---
FSBS 221, 8 UNITS INS GIVEN PER SS.
[2017-06-07 19:00] VITALS: BP 109/53
--- NOTE | 2017-06-07 22:41 | NUR ---
INITIAL ROUNDS COMPLETED AT 1915 HRS. PT HAD C/O GARCIA. FLEXERIL PO GIVEN. ASSESSMENT COMPLETED AT 1950 HRS. VSS. SR PER CM HR 78. O2 2LNC. LUNGS DIMINISHED IN BASES BILAT. IV TO RAC WIT BUMEX AT 5CC/HR. IV PATENT. SCATTERED BRUISES TO BILAT ARMS. BUTT SLIGHTLY RED. PM MFSBS 148. NO COVERAGE NEEDED. SCHEDULED LANTUS AND PM MEDS GIVEN. PT CURRENTLY SITTING ON BSC. WILL CONTINUE TO MONITOR. SR UP X2, CALL LIGHT WITHIN REACH.
[2017-06-08] VITALS: BP 115/60
--- NOTE | 2017-06-08 00:22 | NUR ---
PT RESTING WITH EYES CLOSED. RESP EVEN AND REGULAR. SR UP X2, CALL LIGHT WITHIN REACH.
--- NOTE | 2017-06-08 01:54 | NUR ---
PT RESTING WITH EYES CLOSED. RESP EVEN AND REGULAR. SR UP X2,CALL LIGHT WITHIN REACH AND BED ALARM ON.
[2017-06-08 04:00] VITALS: BP 132/57
--- NOTE | 2017-06-08 04:37 | NUR ---
PT RESTING WITHEYES CLOSED. RESP EVEN AND REGULAR. SR UP X2, CALL LIGHT WITHIN REACH.
--- NOTE | 2017-06-08 06:33 | NUR ---
VSS THROUGHOUT NIGHT. PT STATED FLEXERIL HELPED HAS. AM FSBS 71. NO COVERAGE NEEDED. AM MED GIVEN WITH 120CC OF GRAPE JUICE. NEEDS MET; WILL CONTINUE TO MONITOR.
--- NOTE | 2017-06-08 07:00 | NUR ---
INITIAL ROUNDS MADE. PT SITTING UP IN BED WATCHING TV. NO NEEDS OR C/O VOICED AT THIS TIME. WILL CONT TO MONITOR.
[2017-06-08 08:22] VITALS: BP 130/65
[2017-06-08 08:29] LABS: ALBUMIN 2.9 g/dL (3.4-5.0); ANION GAP 12.6 mmol/L (8-16); BILIRUBIN - DIRECT 0.63 mg/dL (0.00-0.30); BILIRUBIN - INDIRECT 0.71 mg/dL (0.00-1.00); BILIRUBIN - TOTAL 1.34 mg/dL (0.2-1.3); CALCIUM 7.8 mg/dL (8.5-10.1); CARBON DIOXIDE 26.3 mmol/L (21.0-32.0); CREATININE - SERUM 1.9 mg/dL (0.6-1.3); MAGNESIUM - SERUM 2.6 mg/dL (1.8-2.4); PHOSPHOROUS 5.4 mg/dL (2.5-4.9); POTASSIUM - SERUM 4.9 mmol/L (3.5-5.1); PROTEIN - SERUM 6.1 g/dL (6.4-8.2)
[2017-06-08 08:30] LABS: BASOPHILS 0.2 % (0-2); EOSINOPHILS 4.1 % (0-7); HEMATOCRIT 25.1 % (36.0-48.0); HEMOGLOBIN 8.6 g/dL (12-16); IMMATURE GRANULOCYTES 1.2 % (0-5); MCH 30.8 pg (26.0-34.0); MCHC 34.3 g/dL (31.0-37.0); MONOCYTES 8.8 % (2-11); NEUTROPHILS 75.7 % (40-80); PLATELET COUNT 123 10x3/uL (130-400); RBC 2.79 10x6/uL (4.00-5.40); WBC 5.1 10x3/uL (4.8-10.8)
--- NOTE | 2017-06-08 08:30 | NUR ---
AM MEDS GIVEN WITH BREAKFAST, NO NEEDS VOICED.
--- NOTE | 2017-06-08 09:33 | NUR ---
ASSITED UP TO BSC.
[2017-06-08 11:47] LABS: CREATININE - URINE 5.2 mg/dL (30-125); PROTEIN - URINE 11.2 mg/dL (0.0-11.9)
[2017-06-08 12:10] VITALS: BP 95/59
[2017-06-08 16:15] VITALS: BP 123/45
--- NOTE | 2017-06-08 19:42 | NUR ---
INITIAL ROUNDS COMPLETED. PT DENIES ANY DISCOMFORT. WILL CONTIUE TO MONITOR.
[2017-06-08 22:14] VITALS: BP 105/51
--- NOTE | 2017-06-08 22:40 | NUR ---
ASSESSMENT COMPLETED AT 2000 HRS. VSS. SR PER CM HR 84. IV TO RAC WITH BUMEX AT 5CC/HR. IV PATENT. O2 2LNC. LUNGS DIMINISHED IN BASES BILAT. BRUISES NOTED TO BILAT ARMS. PM FSBS 204. PM INSULIN HELD PT NPO AFTER MIDNIGHT FOR AM LHC. PM MEDS GIVEN. PT CURRENTLY DOING CROSSWORD PUZZLE. DENIES ANY DISCOMFORT. WILL CONTINUE TO MONITOR. S RUP X2,CALL LIGHT WITHIN REACH AND DOOR OOPEN PER PT'S REQUEST.
--- NOTE | 2017-06-09 00:14 | NUR ---
PT RESTING WITH EYES CLOSED. RESP EVEN AND REGULAR. SR UP X2,CALL LIGHT WITHIN REACH.
[2017-06-09 00:45] VITALS: BP 135/57
--- NOTE | 2017-06-09 02:12 | NUR ---
PT RESTING WITH EYES CLOSED. RESP EVEN AND REGULAR. SR UP X2,CALL LIGHT WITHIN REACH.
[2017-06-09 04:00] VITALS: BP 133/60
[2017-06-09 04:43] LABS: BASOPHILS 0.3 % (0-2); HEMATOCRIT 25.5 % (36.0-48.0); HEMOGLOBIN 8.8 g/dL (12-16); LYMPHOCYTES 16.9 % (15-50); MCH 31.8 pg (26.0-34.0); MCHC 34.5 g/dL (31.0-37.0); MEAN PLATELET VOLUME 12.8 fL (7.4-10.4); MONOCYTES 9.6 % (2-11); NEUTROPHILS 67.2 % (40-80); PLATELET COUNT 138 10x3/uL (130-400); RBC 2.77 10x6/uL (4.00-5.40); RDW 18.9 % (11.5-14.5)
[2017-06-09 04:44] LABS: MCV 92.1 fL (80.0-100.0)
--- NOTE | 2017-06-09 04:53 | NUR ---
PT AWAKE; DENIES ANY DISCOMFORT. WILL CONTINUE TO MONITOR.
[2017-06-09 05:11] LABS: ALBUMIN 2.9 g/dL (3.4-5.0); ANION GAP 9.3 mmol/L (8-16); BILIRUBIN - DIRECT 0.42 mg/dL (0.00-0.30); BILIRUBIN - INDIRECT 0.58 mg/dL (0.00-1.00); CALCIUM 8.6 mg/dL (8.5-10.1); CARBON DIOXIDE 30.9 mmol/L (21.0-32.0); CREATININE - SERUM 1.8 mg/dL (0.6-1.3); MAGNESIUM - SERUM 2.2 mg/dL (1.8-2.4); POTASSIUM - SERUM 4.2 mmol/L (3.5-5.1); PROTEIN - SERUM 6.4 g/dL (6.4-8.2)
--- NOTE | 2017-06-09 06:36 | NUR ---
[facility] AM FSBS 134. PT NPO FOR AM LHC. NEEDS MET; WILL CONTINUE TO MONITOR.
[2017-06-09 08:00] VITALS: BP 104/53
--- NOTE | 2017-06-09 08:00 | NUR ---
AM ROUNDING COMPLETED. SHIFT ASSESSMENT COMPLETED ALSO. PT IS SITTING ON BSC URINATING. PT STATES SHE HAD A ERIKA OVERAL BUT IS JUST TIRED OF NEEDING TO URINATE SO FREQUENT. PT IS ON A BUMEX DRIP @5ML/HR INFUSING TO R.AC PIV. PT C/O IT LEAKING. REMOVED DRSG AND APPLIED NEW TEGADERM HOLDING PIV PATENT AND INTACT, FLUSHED WITHOUT ANY DIFFICULTIES OR FURTHER LEAKAGE. PT SWALLOWED MORNING MEDICATIONS WITH A SIP OF WATER AND IS TO REMAIN NPO FOR ELECTRONIC IMAGER PROCEDURE LATER TODAY. PT VERBALIZED UNDERSTANDING AND STATES "IM JUST READY TO BE DONE WITH IT" RR ARE NONLABORED WITH NC @2L IN PLACE. PT RUNNING SR ON TELEMETRY PER SennariY. EMPTIED BSC OF 450 CLEAR YELLOW URINE AND ASSISTED PT BACK INTO BED. PT VOICED THANKS AND DENIES ANY FURTHER NEEDS AT THIS TIME. CL IN REACH, BED IN LOWEST, SIDE RAILS X2, WILL CPOC.
--- NOTE | 2017-06-09 09:10 | NUR ---
CATH CALLED TO PRE-OP PT. PRE-OP MEDS GIVEN. PT AWAITING PROCEDURE. NO FURTHER NEEDS.
[2017-06-09 12:00] VITALS: BP 135/57
--- NOTE | 2017-06-09 13:38 | NUR ---
PT BACK FROM MACHINED PARTS METAL SPRAYER PROCEDURE. DRSG TO R.GROIN IN PLACE CDI. NO S/S OF HEMATOMA OR BLEEDING NOTED. INITIATED IV FLUID OF NS @100ML/HR VIA R.AC PIV SITE. TELEMETRY BACK IN PLACE AND BEING MONITERED. VSS AND BEING MONITERED B96HVSE PER POST PROCEDURE PROTOCOL. PERIPHERAL PULSES INTACT. PT IS TO LAY FLAT FOR 4 HOURS AND VERBALIZED UNDERSTANDING. AT BEDSIDE, CL IN REACH, BED IN LOWEST, SIDE RAILS X2. WILL CTM.
--- NOTE | 2017-06-09 14:19 | NUR ---
PERIPHERAL PULSES INTACT. VSS AND STILL BEING MONITERED AND RECORDED. PT REQUESTING TO VOID. ASSISTED HER ON THE BEDPAN AND SHE VOIDED 300ML OF CLEAR YELLOW URINE. R.GROIN DRSG CDI AND NO S/S OF HEMATOMA OR BLEEDING NOTED. CL IN REACH, BED IN LOWEST, SIDE RAILS X2. WILL CPOC.
--- NOTE | 2017-06-09 15:08 | NUR ---
PTS R.AC PIV CAME OUT IN BED. CATH TIP FULLY INTACT. ATTEMPTED PIV ACCESS BUT NO VISUAL OR VEINS PALPABLE TO INSERT IV. WILL CONTACT VASCULAR NURSE FOR MIDLINE PLACEMENT DUE TO SEVERAL IV INFILTRATIONS.
[2017-06-09 16:00] VITALS: BP 138/66
--- NOTE | 2017-06-09 16:16 | NUR ---
CONSENT SIGNED FOR CVL PLACEMENT AND EXPLAINED REASONING AND PROCEDURE TO PT. PT VERBALIZED UNDERSTANDING. AT BEDSIDE NOW TO PERFORM. WILL CTM.
--- NOTE | 2017-06-09 16:55 | NUR ---
FSBS 176 PT REFUSED SS INSULIN AND STATES SHE NORMALLY DOESNT NEED IT UNLESS ABOVE 200. PT NEEDED TO USE BEDPAN ASSISTED HER ON IT. AWAITING XRAY RESULTS TO RESTART IV BUMEX. R.CHEST CVL IN PLACE WITH BIOPATCH IN PLACE, DRSG CDI AND SWAB CAPS IN USE. WILL CPOC.
--- NOTE | 2017-06-09 17:37 | NUR ---
PTS 4 HOUR LAY IS NOW COMPLETED. PERIPHERAL PULSES INTACT. R.GROIN DRSG CDI. NO S/S OF HEMATOMA OR BLEEDING NOTED. VSS AND STILL BEING MONITERED. PT READY TO EAT DINNER. ASSISTED PT UP IN BED AND SHE IS NOW EATING. CL IN REACH, BED IN LOWEST, SIDE RAILS X2. WILL CPOC.
[2017-06-09 19:45] VITALS: BP 114/42
--- NOTE | 2017-06-09 21:46 | NUR ---
PT AWAKE, ALERT, ORIENTED, UP WITH ASSIST TO BEDSIDE COMMODE. PT DENIES ANY OTHER NEEDS. PT UNDERSTANDS HER FLUID RESTRICTION, RED JELLO GIVEN TO PT AFTER ADMINISTRATION OF INSULIN. PT CURRENTLY WORKING ON WORD PUZZLES, IN NO ACUTE DISTRESS, PERIPHERAL PULSES PALPABLE BILATERALLY. CONTINUE TO MONITOR PT CLOSELY. PT ALSO RECEIVED HER BATH, LINEN, AND GOWN CHANGE DURING 21:00 MED PASS.
[2017-06-10 01:25] VITALS: BP 129/57
[2017-06-10 05:02] VITALS: BP 119/52
[2017-06-10 06:09] LABS: BASOPHILS 0.3 % (0-2); EOSINOPHILS 6.6 % (0-7); HEMATOCRIT 24.9 % (36.0-48.0); HEMOGLOBIN 8.4 g/dL (12-16); LYMPHOCYTES 19.9 % (15-50); MCH 31.1 pg (26.0-34.0); MCHC 33.7 g/dL (31.0-37.0); MCV 92.2 fL (80.0-100.0); MEAN PLATELET VOLUME 12.8 fL (7.4-10.4); MONOCYTES 11.8 % (2-11); NEUTROPHILS 60.4 % (40-80); PLATELET COUNT 146 10x3/uL (130-400); RDW 19.3 % (11.5-14.5); WBC 3.9 10x3/uL (4.8-10.8)
[2017-06-10 06:34] LABS: CALCIUM 8.2 mg/dL (8.5-10.1); CARBON DIOXIDE 31.8 mmol/L (21.0-32.0); CREATININE - SERUM 1.7 mg/dL (0.6-1.3); MAGNESIUM - SERUM 1.9 mg/dL (1.8-2.4); POTASSIUM - SERUM 3.8 mmol/L (3.5-5.1)
[2017-06-10 07:24] LABS: HEPATITIS C ANTIBODY <0.1 (0.0-0.9)
[2017-06-10 08:57] VITALS: BP 158/71
--- NOTE | 2017-06-10 10:38 | NUR ---
0700- AM ROUNDING- RECEIVED REPORT FROM INTERIOR BLOCK WIRER NURSE DAMON. PT IS CURRETNLY LAYING IN BED ON BACK WITH EYES CLOSED RESTING. ON 02 AT 2L VIA NC. ON MONITOR SHOWING SR, HR 78 WITH BBB (PER BENTLEY IN TELEMETRY). RIGHT CVL SEEN WITH BUMEX RUNNING AT 5CC. CLEAN, DRY, AND INTACT DRESSING SEEN TO RIGHT GROIN AREA. NO NEED AT CURRENT TIME. WILL CONTINUE TO MONITOR AND CONTINUE WITH PLAN OF CARE.
--- NOTE | 2017-06-10 10:55 | NUR ---
DIOGO BRERY NP ON UNIT. INFORMED HER OF PTS AM LABS. NEW ORDER RECEIVED. WILL CONTINUE TO MONITOR.
[2017-06-10 12:29] VITALS: BP 119/34
[2017-06-10 15:59] VITALS: BP 145/64
--- NOTE | 2017-06-10 17:12 | NUR ---
PT IS CURRENTLY SITTING UP IN BED WITH EYES OPEN EATING DINNER. AND GUEST ARE AT BEDSIDE. PT DENIES ANY NEED AT CURRENT TIME. WILL CONTINUE TO MONITOR.
[2017-06-10 19:00] VITALS: BP 128/50
--- NOTE | 2017-06-10 19:20 | NUR ---
ASSISTED PT WITH BED SIDE COMMODE.
--- NOTE | 2017-06-11 00:23 | OP ---
PATIENT NAME: INDIA ELLIS MEDICAL RECORD: [id number] :47 LOCATION:D.M2 D.2110 ADMISSION DATE:05/26/17 SURGEON: TRISTA DELACRUZ MD DATE OF OPERATION: 06/09/2017 PREOPERATIVE DIAGNOSES: 1. Coronary artery disease. 2. Chronic kidney disease. 3. Diabetes mellitus. 4. Cardiac arrhythmia. POSTOPERATIVE DIAGNOSES: 1. Coronary artery disease. 2. Chronic kidney disease. 3. Diabetes mellitus. 4. Cardiac arrhythmia. PROCEDURE: Right subclavian vein triple-lumen central venous line placement. SURGEON: Trista Delacruz MD REPORT OF PROCEDURE: The patient's right chest was prepped and draped in sterile fashion. A total of 5 cc of 1% lidocaine was infused into the subcutaneous tissues. A needle was used to cannulate the right subclavian vein. The guidewire was advanced with ease. Over this wire, a dilator was placed followed by the triple lumen catheter. The catheter aspirated nonpulsatile dark blood and flushed easily in all 3 ports. This was sutured into place with 3-0 silk ties and dressed appropriately. COMPLICATIONS: None. CONDITION: Stable. ANESTHESIA: Local. BLOOD LOSS: Minimal. Procedure done at the bedside. TRANSINT:[id number] Voice Confirmation ID: [id number] DOCUMENT ID: [id number] TRISTA DELACRUZ MD at 0023 CC: [id number] DICTATION DATE: 06/09/17 1632 SERVICE OFFICER: 06/09/17 2031 ADM IN [id number] [place] [address]
--- NOTE | 2017-06-11 03:27 | NUR ---
REST QUIETLY IN BED, EYE CLOSE, BED LOW, CALL LIGHT WITHIN REACH.
--- NOTE | 2017-06-11 05:12 | NUR ---
PT RESTING IN BED WITH NO DISTRESS. RESPS NONLABORED. CPOC.
--- NOTE | 2017-06-11 05:30 | NUR ---
PT FSBS IS 64, GIVE APPLE JUICE AND CRACKER, AND WILL RECHECK BLOOD SUGAR.
[2017-06-11 05:57] LABS: BASOPHILS 0.2 % (0-2); EOSINOPHILS 3.7 % (0-7); HEMATOCRIT 26.6 % (36.0-48.0); HEMOGLOBIN 8.8 g/dL (12-16); IMMATURE GRANULOCYTES 1.2 % (0-5); LYMPHOCYTES 16.8 % (15-50); MCH 30.8 pg (26.0-34.0); MCHC 33.1 g/dL (31.0-37.0); MEAN PLATELET VOLUME 11.8 fL (7.4-10.4); MONOCYTES 12.1 % (2-11); PLATELET COUNT 166 10x3/uL (130-400); RBC 2.86 10x6/uL (4.00-5.40); RDW 19.2 % (11.5-14.5)
[2017-06-11 05:59] LABS: WBC 5.1 10x3/uL (4.8-10.8)
--- NOTE | 2017-06-11 06:22 | NUR ---
RECHECK BLOOD SUGAR IS 98.
[2017-06-11 06:24] LABS: ANION GAP 9.2 mmol/L (8-16); CALCIUM 8.6 mg/dL (8.5-10.1); CARBON DIOXIDE 34.2 mmol/L (21.0-32.0); CREATININE - SERUM 1.5 mg/dL (0.6-1.3); MAGNESIUM - SERUM 1.7 mg/dL (1.8-2.4); PHOSPHOROUS 4.3 mg/dL (2.5-4.9); POTASSIUM - SERUM 3.4 mmol/L (3.5-5.1)
--- NOTE | 2017-06-11 07:48 | NUR ---
AM ROUNDING- RECEIVED REPORT FROM BOOM CAT OPERATOR NURSE VELIA. PT IS CURRENTLY LAYING IN BED ON LEFT SIDE WITH EYES OPEN RESTING. PT IS C/O 9/10 PAIN FROM BACK. INFORMED PT THAT I WILL SEE WHAT PAIN MEDICAION PT HAS ORDERED AND WILL GIVE PER ORDER. ON 02 AT 2L VIA HUMIDIFIED O2. ON MONITOR SHOWING SR, HR 81. RIGHT CVL SEEN WITH BUMEX RUNNING AT 5CC. WILL CONTINUE TO MONITOR.
[2017-06-11 08:49] VITALS: BP 126/54
[2017-06-11 11:58] VITALS: BP 128/51
--- NOTE | 2017-06-11 15:35 | NUR ---
CHANGED PTS CVL DRESSING. REPLACED WITH NEW DRESSING THAT IS NOW CLEAN, DRY, INTACT, AND DATED. NO NEED AT CURRENT TIME. WILL CONTINUE TO MONITOR.
--- NOTE | 2017-06-11 15:38 | NUR ---
Patient Name: INDIA ELLIS Encounter No: [id number] : 1945 Primary Insurance: MEDICARE A & B Anticipated DC Date: 06-12-2017 Planned Disposition: Home with Home Health External Planned Provider: [facility] DCP follow-up note: CM RECEIVED ORDER FOR INPATIENT REHAB PRESCREENING, MET WITH PT AND SPOUSE IN ROOM, DISCUSSED REHAB OPTIONS AND LOCATIONS. PT AND SPOUSE BOTH REFUSE INPATIENT AND [facility] REHAB AT ANY FACILITY. PT REPORTS SHE IS GOING HOME AND WOULD LIKE [facility] FOR PHYSICAL THERAPY AT HOME. CM EXPRESSED CONCERN OF LOW STRENGTH OF PT AND LACK OF ASSISTANCE AT HOME. PT'S SPOUSE REPORTS TO BE HOME WITH PT ALL OF THE TIME AND STATES HE IS WILLING AND ABLE TO ASSIST PT SAFELY NEEDED. SPOUSE REPORTS HE WILL BE DRIVING PT HOME AT DISCHARGE. IMPORTANT MESSAGE FROM MEDICARE PROVIDED AND EXPLAINED. VASU BERRY NOTIFIED. [facility] INPATIENT REHAB NOTIFIED. CM TO ARRANGE HOME HEALTH WITH [facility] IF DOCTOR AGREES AND PROVIDES HOME HEALTH ORDERS (CHOICE PREVIOUSLY SIGNED BY PT). CM TO FOLLOW AND ASSIST IF NEEDED. Supervisor Plating And Point Assembly: Gabo Freedman
[2017-06-11 16:09] VITALS: BP 144/67
--- NOTE | 2017-06-11 18:01 | NUR ---
PT IS CURRENTLY SITTING UP IN BED WITH EYES OPEN RESTING. IS AT BEDSIDE. BED IS IN LOW POSITION, SIDE RAILS ARE UP X2, AND CALL LIGHT IS IN REACH. WILL CONTINUE TO MONITOR.
[2017-06-11 20:00] VITALS: BP 137/57
--- NOTE | 2017-06-11 20:08 | NUR ---
LYING IN BED WITH EYES OPEN AND TV ON. PLEASANT AND COOPERATIVE. VERY TALKATIVE. CONTINENT OF B/B AND REQUIRES STAND BY ASSIST FOR TRANSFERS.
--- NOTE | 2017-06-11 22:14 | NUR ---
RESTING IN BED WITH EYES CLOSED. NO S/S OF DISTRESS OBSERVED. EASILY AROUSES WITH VERBAL STIMULI.CVL TO RIGHT CHEST FLUSHED PER ORDERS. O2@2 LITERS PER N/C IN PLACE. RESPIRATIONS EVEN AND UNLABORED. CONTINUES TO RECIEVE BUMEX @5 CC/HR.REMAINS ON FLUID RESTRICTION OF 1200MLQD. + 3 PITTING EDEMA TO LOWER EXTREMITIES. STATES " THEY'VE BEEN LIKE THAT FOR A COUPLE OF MONTHS". DENIES ANY PAIN AT THIS TIME.
--- NOTE | 2017-06-12 00:29 | NUR ---
LYING IN BED WITH EYES OPEN AND TV ON. O2@ 2 LITERS PER NASAL CANNULA. INCONTINENT OF BLADDER X1 THIS SHIFT. REQUIRED COMPLETE BED CHANGE.
[2017-06-12 01:25] VITALS: BP 115/71
--- NOTE | 2017-06-12 02:06 | NUR ---
SITTING UP ON THE SIDE OF THE BED WITH TV ON. DENIES ANY PAIN. PLEASANT AND TALKATIVE. CONTINUES TO RECIEVE BUMEX PERIV AT 5CC AND HOUR. O2@ 2LITERS PER N/C IN PLACE.
--- NOTE | 2017-06-12 04:03 | NUR ---
RESTING IN BED WITH EYES CLOSED. NO S/S OF DISTRESS OBSERVED. BUMEX INFUSING AT 5CC AND HR. NO ADVERSE SIDE EFFECTS OBSERVED. CONTINUES ON 1200CC FLUID RESTRICTION. CALL LIGHT AND OVERBED TABLE IN REACH.
[2017-06-12 04:12] VITALS: BP 136/55
[2017-06-12 05:53] LABS: BASOPHILS 0.2 % (0-2); EOSINOPHILS 3.4 % (0-7); HEMATOCRIT 26.5 % (36.0-48.0); HEMOGLOBIN 8.7 g/dL (12-16); IMMATURE GRANULOCYTES 1.4 % (0-5); LYMPHOCYTES 15.3 % (15-50); MCHC 32.8 g/dL (31.0-37.0); MCV 94.3 fL (80.0-100.0); MEAN PLATELET VOLUME 11.6 fL (7.4-10.4); MONOCYTES 10.8 % (2-11); NEUTROPHILS 68.9 % (40-80); PLATELET COUNT 154 10x3/uL (130-400); RBC 2.81 10x6/uL (4.00-5.40); RDW 19.2 % (11.5-14.5); WBC 5.6 10x3/uL (4.8-10.8)
[2017-06-12 06:06] LABS: CALCIUM 8.7 mg/dL (8.5-10.1); CARBON DIOXIDE 38.3 mmol/L (21.0-32.0); CREATININE - SERUM 1.6 mg/dL (0.6-1.3); POTASSIUM - SERUM 3.3 mmol/L (3.5-5.1)
--- NOTE | 2017-06-12 06:12 | NUR ---
LYING IN BED WITH EYES OPEN HEAD OF BED ELEVATED. O2@2 LITERS PER N/C. RESPIRATIONS EVEN AND UNLABORED. CALL LIGHT AND OVERBED TABLE IN REACH.
--- NOTE | 2017-06-12 07:35 | NUR ---
AM ROUNDING DONE WITH PATIENT APPEARING TO BE ASLEEP LAYING ON RIGHT SIDE. ON HEART MONITOR SHOWING SR, HR 98. ON 2L PER NC. RIGHT TRIPLE LUMEN CVL SEEN WITH BUMEX AT 5 CC/HR. ON 1200 CC FLUID RESTRICTION. BSC IN ROOM AT BEDSIDE. WILL CPOC.
--- NOTE | 2017-06-12 09:13 | NUR ---
Rehab Prescreening Consult recieved and the chart has been reviewed. She is a good rehab candidate, but the CM says she has declined inpatient therapy. Informed the CM to notify the rehab if she changes her mind. Suzie Green RN Clinical Liaison, Rehab
--- NOTE | 2017-06-12 09:14 | NUR ---
WAS SITTING IN CHAIR FOR BREAKFAST, DENIES ANY NEEDS. SPOUSE IS HERE NOW. ASSISTED TO SIDE OF BED.
[2017-06-12 09:16] VITALS: BP 126/61
[2017-06-12 12:50] VITALS: BP 132/53
--- NOTE | 2017-06-12 13:44 | NUR ---
Nutrition follow-up: Diet: Renal ADA PO intake now 100% of meals Labs reviewed +BM Wt: 170# RDN following.
--- NOTE | 2017-06-12 13:47 | NUR ---
CALLED TO ROOM WITH COMPLAINT OF "HOT WIRE POKING ME IN CHEST AREA". CHECKED HEART MONITOR AND IT SHOWS SR, HR 92. GAVE PATIENT A DIET COLA AND SHE STATES THAT SHE IS FEELING BETTER. WILL CONTINUE TO MONITOR.
[2017-06-12 16:53] VITALS: BP 159/75
--- NOTE | 2017-06-12 17:38 | NUR ---
DENIES ANY NEEDS AT PRESENT TIME. NO MORE "HOT WIRE:. BUMEX STILL INFUSING TO RIGHT CVL, WILL CPOC.
--- NOTE | 2017-06-12 19:30 | NUR ---
PT IN BED WITH HOB UP FOR COMFORT. WATCHING TV. ALERT & ORIENTED. FSBS ACHS. 02 @ 2L VIA N/C. TELEMETRY. STRICT I & O. 1200CC FLUID RESTRICTION. RIGHT TRIPLE LUMEN BUMEX @ 5ML/HR. BED IN LOWEST POSITION AND CALL LIGHT WITHIN REACH.
[2017-06-12 21:16] VITALS: BP 142/67
[2017-06-13] VITALS: BP 135/50
[2017-06-13 03:32] LABS: BASOPHILS 0.2 % (0-2); EOSINOPHILS 3.9 % (0-7); HEMATOCRIT 25.8 % (36.0-48.0); HEMOGLOBIN 8.3 g/dL (12-16); IMMATURE GRANULOCYTES 1.9 % (0-5); LYMPHOCYTES 13.5 % (15-50); MCH 30.5 pg (26.0-34.0); MCHC 32.2 g/dL (31.0-37.0); MCV 94.9 fL (80.0-100.0); MEAN PLATELET VOLUME 11.3 fL (7.4-10.4); NEUTROPHILS 72.5 % (40-80); PLATELET COUNT 143 10x3/uL (130-400); RBC 2.72 10x6/uL (4.00-5.40); RDW 19.6 % (11.5-14.5); WBC 6.4 10x3/uL (4.8-10.8)
[2017-06-13 03:44] LABS: ANION GAP 3.9 mmol/L (8-16); CALCIUM 8.4 mg/dL (8.5-10.1); CARBON DIOXIDE 38.2 mmol/L (21.0-32.0); CREATININE - SERUM 1.7 mg/dL (0.6-1.3); POTASSIUM - SERUM 3.1 mmol/L (3.5-5.1)
[2017-06-13 04:35] VITALS: BP 128/59
--- NOTE | 2017-06-13 07:25 | NUR ---
AM ROUNDS- PT IN BED, WITH EYES CLOSED, RT SUBCLAVIAN INFUSING BUMEX AT 5 AND NS AT KVO. PT ON 2L NC, RESP EVEN AND UNLABORED. BED LOW AND WHEELS LOCKED, BEDSIDE RAILS X2, CALL LIGHT IN REACH, NAD NOTED, WILL CONTINUE TO MONITOR.
--- NOTE | 2017-06-13 09:31 | NUR ---
AM MEDS GIVEN AT THIS TIME. PT IN BED, DENIES ANY NEEDS AT THIS TIME. BEDSIDE COMMODE EMPTIED. CALL LIGHT IN REACH, NAD NOTED, WILL CONTINUE TO MONITOR.
[2017-06-13 09:33] VITALS: BP 121/55
--- NOTE | 2017-06-13 11:24 | NUR ---
BLOOD SUGAR OF 121, NO COVERAGE NEEDED PER S/S. PT IN BED, DENIES ANY NEEDS AT THIS TIME. CALL LIGHT IN REACH, NAD NOTED, WILL CONTINUE TO MONITOR.
[2017-06-13 12:04] VITALS: BP 117/53
--- NOTE | 2017-06-13 12:10 | NUR ---
CALLED TO PT'S ROOM PT STATED THAT SHE IS ITCHING NOW THAT SHE RECEIVED NORCO THIS AM. CALLED DR. ABRAHAM AND INFOMRED HIM ABOUT WHAT IS GOING ON WITH PT. HE STATED TO ORDER 50MG OF BENADRYL. RECEIVED CALL FROM CRISELDA WITH DR. SHELDON, WHO STATED TO GIVE PT A FULL LIQUID DIET FOR TODAY AND THAT DR. SHELDON WOULD SCOPE HER TOMORROW.
--- NOTE | 2017-06-13 16:14 | NUR ---
BLOOD SUGAR OF 183, 4 UNITS OF HUMULIN GIVEN PER S/S. PT IN BED, WATCHING TV, DENIES ANY NEEDS AT THIS TIME. CALL LIGHT IN REACH, NAD NOTED, WILL CONTINUE TO MONITOR.
[2017-06-13 16:15] VITALS: BP 124/51
[2017-06-13 19:00] VITALS: BP 123/59
--- NOTE | 2017-06-13 19:20 | NUR ---
REPORT RECIEVED. ASSISTED PT UP TO BSC. GAIT IS UNSTEADY, PT DESCRIBES PAIN IN LEGS ON STANDING "PINS AND NEEDLES." RR EVEN AND UNLABORED, NC ON PT DELIVERING O2 AT 2L. PT VOIDED CLEAR, YELLOW URINE. PT HELPED BACK TO BED AND ELEVATED LEGS DUE TO PITTING EDEMA. WILL CTM.
--- NOTE | 2017-06-13 23:00 | NUR ---
CENTRAL LINE FLUSHED WITH NS. ALL 3 LUMENS FLUSHED EASILY WITHOUT RESISTANCE.
[2017-06-14] VITALS: BP 132/59
--- NOTE | 2017-06-14 03:10 | NUR ---
BLOOD DRAW PERFORMED. RR EVEN AND UNLABORED, PT RESTING QUIETLY. WILL CTM.
[2017-06-14 03:20] LABS: BASOPHILS 0.2 % (0-2); EOSINOPHILS 4.6 % (0-7); HEMATOCRIT 24.5 % (36.0-48.0); HEMOGLOBIN 8.2 g/dL (12-16); IMMATURE GRANULOCYTES 1.1 % (0-5); LYMPHOCYTES 14.4 % (15-50); MCH 31.5 pg (26.0-34.0); MCHC 33.5 g/dL (31.0-37.0); MCV 94.2 fL (80.0-100.0); MEAN PLATELET VOLUME 11.7 fL (7.4-10.4); MONOCYTES 8.8 % (2-11); NEUTROPHILS 70.9 % (40-80); PLATELET COUNT 118 10x3/uL (130-400); RDW 19.9 % (11.5-14.5); WBC 5.5 10x3/uL (4.8-10.8)
[2017-06-14 03:28] LABS: ANION GAP 6.2 mmol/L (8-16); CALCIUM 8.2 mg/dL (8.5-10.1); CARBON DIOXIDE 35.4 mmol/L (21.0-32.0); CREATININE - SERUM 1.8 mg/dL (0.6-1.3)
[2017-06-14 03:29] LABS: POTASSIUM - SERUM 3.6 mmol/L (3.5-5.1)
[2017-06-14 04:00] VITALS: BP 105/57
--- NOTE | 2017-06-14 07:01 | NUR ---
PT RESTING QUIETLY, RR EVEN AND UNLABORED. PT DENIES NEEDS AT THIS TIME, WILL GIVE REPORT ON PT CONDITION FOR THE DAY.
[2017-06-14 07:56] VITALS: BP 123/44
--- NOTE | 2017-06-14 07:58 | NUR ---
AM ROUNDING- RECEIVED REPORT FROM STAMP MOUNTER NURSE SHY. PT IS CURRENTLY SITTING UP IN BED WITH EYES OPEN RESTING. IS AT BEDSIDE. PT STATES "I HOPE I GET TO GO HOME TODAY". ON 02 AT 2L VIA NC. ON MONITOR SHOWING SR, HR 92. RIGHT CVL SEEN WITH CLEAN, DRY, AND INTACT DRESSING. BUMED IS RUNNING THROUGH CVL AT 5CC. NO NEED AT CURRENT TIME. WILL CONTINUE TO MONITOR AND CONTINUE WITH PLAN OF CARE.
[2017-06-14] MEDS ORDERED: COREG25 MG PO (11:40)
[2017-06-14 11:41] VITALS: BP 112/41
[2017-06-14] MEDS ORDERED: SYNTHROID25 MCG PO (11:41)
[2017-06-14] MEDS ORDERED: FLORAJEN3 CAPS460 MG PO (11:44)
[2017-06-14] MEDS ORDERED: LEVAQUIN500 MG PO (11:44)
--- NOTE | 2017-06-14 14:45 | NUR ---
1430- REMOVED PTS CVL DRESSING ORDERED. SANTA BYNUM ASSISTED ME IN DOING THIS. SANTA BYNUM INSTRUCTED PT TO TAKE DEEP BREATH AND HOLD WHILE I REMOVED CVL WITH CATH TIP INTACT. PRESSURE HELD OVER SITE FOR APPROX 10 MINUTES WHILE CHECKING SITE CONTINUOUSLY. NO BLEEDING SEEN. PT INSTRUCTED TO REMAIN LYING FLAT FOR ABOUT 15 MINUTES, PT AGREES. TEGADERM APPLIED OVER SITE. 1440- SANTA BYNUM WENT TO CHECK ON PT AND STATES NO BLEEDING SEEN WHERE CVL WAS REMOVED. WILL CONTINUE TO MONITOR.
--- NOTE | 2017-06-14 14:54 | NUR ---
CHECKED ON PTS DRESSING WHERE CVL WAS REMOVED. DRESSING IS CLEAN, DRY, AND INTACT WITH NO BLEEDING SEEN. PT IS LAYING FLAT INSTRUCTED. WILL CONTINUE TO MONITOR.
--- NOTE | 2017-06-14 15:19 | NUR ---
D/C INSTRUCTIONS EXPLAINED TO PT. D/C PAPERWORK SIGNED BY PT AND PLACED IN CHART. DRESSING WHERE CVL WAS REMOVED IS CLEAN, DRY, AND INTACT WITH NO BLEEDING SEEN. AWAITING PT TO GET BELONGINGS TOGETHER NOW. WILL D/C WHEN READY.
--- NOTE | 2017-06-14 16:01 | NUR ---
PT D/C VIA WHEELCHAIR.
--- NOTE | 2017-06-16 08:01 | NUR ---
Patient Name: INDIA ELLIS Encounter No: [id number] : 1945 Primary Insurance: MEDICARE A & B Anticipated DC Date: 06-14-2017 Planned Disposition: Home DCP follow-up note: CM REVIEWED CHART, PT DISCHARGED HOME OVER THE WEEKEND; THE DOCTOR DID NOT PROVIDE HOME HEALTH ORDERS AND NO HOME HEALTH SERVICES WERE ARRANGED BY INSTALLATIONS INSPECTOR. Gabo Freedman, CASE MANAGEMENT
--- NOTE | 2017-06-20 09:41 | OP ---
PATIENT NAME: INDIA ELLIS MEDICAL RECORD: [id number] :[birth year] LOCATION:D.M2 D.2110 ADMISSION DATE:05/26/17 SURGEON: JED GOLDEN MD DATE OF OPERATION: 06/09/2017 PROCEDURES: 1. PTCA stent RCA. 2. Selective coronary angiography. INDICATION: Angina and coronary artery disease. PROCEDURE IN DETAIL: After informed consent was obtained and after detailed explanation of risks, benefits as well as alternative therapies, the patient elected to proceed with angiogram and angioplasty. The right femoral area was prepped and draped in normal sterile fashion. The right femoral artery was cannulated via modified Seldinger technique with placement of 6-Kinyarwanda sheath. All catheters exchanged through this sheath. FINDINGS: The right coronary has a 70% stenosis in the mid vessel. This was addressed with a 3.5 x 18 mm [place] stent. Result was 0% residual stenosis. OVERALL IMPRESSION: Successful percutaneous transluminal coronary angioplasty stent of the right coronary artery going from 70% initial stenosis to 0% residual. TRANSINT:[id number] Voice Confirmation ID: [id number] DOCUMENT ID: [id number] JED GOLDEN MD at 0941 CC: [id number] DICTATION DATE: 06/09/17 1548 AGRONOMIST: 06/09/172004 DIS IN 06/14/17 [facility] [address] [place] [address]
== END 2017-06-14 16:02 | disposition home or self-care (01) | DRG 247 ==
LOC: D.ER 17:31 → OBSVTIME 20:32 → D.M2 20:32
PROVIDERS: Emergency Medicine; Family Medicine; Internal Medicine Nephrology; Physician Assistant; ADMIT Family Medicine
DX: I13.0 Hypertensive heart and chronic kidney disease with heart failure and stage 1 through stage 4 chronic kidney disease, or unspecified chronic kidney disease (principal); E87.1 Hypo-osmolality and hyponatremia; I50.22 Chronic systolic (congestive) heart failure; E11.22 Type 2 diabetes mellitus with diabetic chronic kidney disease; E11.40 Type 2 diabetes mellitus with diabetic neuropathy, unspecified; D63.8 Anemia in other chronic diseases classified elsewhere; I08.1 Rheumatic disorders of both mitral and tricuspid valves; I25.110 Atherosclerotic heart disease of native coronary artery with unstable angina pectoris; I42.9 Cardiomyopathy, unspecified; Z95.5 Presence of coronary angioplasty implant and graft; Z95.1 Presence of aortocoronary bypass graft; Z86.73 Personal history of transient ischemic attack (TIA), and cerebral infarction without residual deficits; Z86.718 Personal history of other venous thrombosis and embolism; Z87.891 Personal history of nicotine dependence; N18.3 Chronic kidney disease, stage 3 (moderate); E87.5 Hyperkalemia

== ENCOUNTER 2017-09-03 16:40 | Inpatient (IN) | payer MEDICARE, OTHER ==
[~2017-09-03] VITALS: Ht 165.1 cm; Wt 82.8 kg
[~2017-09-03 16:40] MED LIST changes: +COREG25 MG PO; +FLORAJEN3 CAPS460 MG PO; +JANUVIA25 MG PO; +LEVAQUIN500 MG PO; +SYNTHROID25 MCG PO
[2017-09-03 18:52] LABS: BASOPHILS 0 % (0-2); EOSINOPHILS 1.8 % (0-7); HEMOGLOBIN 9.9 g/dL (12-16); LYMPHOCYTES 12.5 % (15-50); MCH 30.9 pg (26.0-34.0); MCV 93.8 fL (80.0-100.0); NEUTROPHILS 76.7 % (40-80); PLATELET COUNT 103 10x3/uL (130-400); RDW 20.2 % (11.5-14.5); WBC 5.1 10x3/uL (4.8-10.8)
[2017-09-03 19:14] LABS: ANION GAP 12.6 mmol/L (8-16); BILIRUBIN - TOTAL 0.81 mg/dL (0.2-1.3); CALCIUM 8.1 mg/dL (8.5-10.1); CARBON DIOXIDE 26.1 mmol/L (21.0-32.0); CREATININE - SERUM 2.2 mg/dL (0.6-1.3); POTASSIUM - SERUM 4.7 mmol/L (3.5-5.1); PROTEIN - SERUM 7.2 g/dL (6.4-8.2)
--- NOTE | 2017-09-03 22:35 | NUR ---
PATIENT ARRIVED FROM THE ER VIA STRETCHER, ALERT AND ORIENTED TO ROOM AND CALL LIGHT. CALL LIGHT PLACED IN REACH, DENIES NEEDS OR PAIN AT THIS TIME.
[2017-09-03] MEDS ORDERED: LANOXIN250 MCG PO (22:44)
[2017-09-03] MEDS ORDERED: BACTRIM DS TABL1 TAB PO (22:44)
[2017-09-03] MEDS ORDERED: ULTRAM50 MG PO (22:45)
[2017-09-03] MEDS ORDERED: TRAZODONE HCL50 MG PO (22:46)
[2017-09-03 23:27] LABS: APPEARANCE CLEAR (CLEAR); BILIRUBIN NEGATIVE (NEGATIVE); COLOR YELLOW (YELLOW); GLUCOSE NEGATIVE (NEGATIVE); KETONE NEGATIVE (NEGATIVE); NITRITE NEGATIVE (NEGATIVE); PROTEIN NEGATIVE (NEGATIVE); UROBILINOGEN NORMAL (NORMAL)
[2017-09-04] VITALS: BP 134/30
--- NOTE | 2017-09-04 02:26 | NUR ---
CALL LIGHT IN REACH. WILL CONTINUE WITH PLAN OF CARE. 72 SR WITH 1ST DEGREE AVB AND BBB
[2017-09-04 05:57] LABS: ANION GAP 15.2 mmol/L (8-16); CALCIUM 7.9 mg/dL (8.5-10.1); CARBON DIOXIDE 23.1 mmol/L (21.0-32.0); CREATININE - SERUM 2.3 mg/dL (0.6-1.3); POTASSIUM - SERUM 4.3 mmol/L (3.5-5.1)
--- NOTE | 2017-09-04 07:15 | NUR ---
RECIEVED REPORT ON PATIENT, PATIENT IS ALERT AND ORIENTED AT THIS TIME. PATIENT IS RESTING IN BED, SR ON MONITOR WITH A RATE OF 78 AT THIS TIME. PATIENT HAS A R HAND IV THAT IS SL AT THIS TIME. ON 2L/MIN VIA NC WITH NAD NOTED AT THIS TIME. CHEST RISES AND FALLS EQUALLY. PATIENT DENIES ANY NEEDS OR PAIN AT THIS TIME. WILL CONT TO MONITOR PATIENT. CPOC
--- NOTE | 2017-09-04 09:15 | NUR ---
PATIENT RESTING AT THIS TIME, NAD NOTED AT THIS TIME. WILL CONT TO MONITOR. AT BEDSIDE. CPOC
[2017-09-04 10:22] VITALS: BP 103/44
--- NOTE | 2017-09-04 12:00 | NUR ---
PATIENT SITTING UP IN BED EATING LUNCH AT THIS TIME. DENIES ANY FURTHER NEEDS, CPOC
[2017-09-04 12:08] VITALS: BP 132/48
--- NOTE | 2017-09-04 13:00 | NUR ---
WOUND CARE NURSE AT BEDSIDE. ASSESSING WOUNDS ON L LEG. CPOC
--- NOTE | 2017-09-04 13:45 | NUR ---
Wound care consult: Pt has chronic open wounds on left lower leg. She states her legs were "swollen" and "water blisters popped up". On the dorsal aspect of left foot there is a 2cm x 2.5cm x yellow slough open wound. There is a moderate serous drainage. No odor is noted at this time. The wound bed is covered with necrotic yellow tissue. The surrounding skin is red and blanchable. Current treatment a home has been santyl to wound bed daily ( providing drsg changes). Recommend continuing with this as the necrotic tissue needs to be removed. Left lower barnett has a 2cm x 1cm x 0.3cm open wound (ruptured blister). Small serous drainage. No odor. Red, edematous periwound noted (blanchable). Upper left barnett has 1cm x 1cm x 0.3cm open ruptured blister. There is small serous drainage and no odor. The periwound is red and edematous (blanchable). Upper left medial barnett has 2cm x 1cm x 0.3cm ruptured blister with small serous drainage red periwound (blanchable). The medical calf has 1cm x 1cm x 0.3cm ruptured blister. It too has serous drainage, red periwound and edema. Pt states that treatment for these wounds included 4x4s moistened with saline. I will recommend an antibiotic ointment to these wounds as they are superficial and have healthy wound beds. Wound care will continue monitoring.
[2017-09-04 13:54] VITALS: Ht 165.1 cm; Wt 82.8 kg
[2017-09-04 15:26] VITALS: BP 144/67
--- NOTE | 2017-09-04 15:52 | NUR ---
DR DRIVER IS ORDERING A DOPPLER ON PATIENTS L LEG, WILL DRESS WOUND AFTER DOPPLER. CPOC
--- NOTE | 2017-09-04 17:15 | NUR ---
PATIENT EATING DINNER, DENIES ANY NEEDS AT THIS TIME. CPOC
[2017-09-04 18:27] LABS: DIGOXIN 2.72 ng/mL (0.90-2.00); THYROID STIMULATING HORMONE 4.3 uIU/mL (0.36-3.74)
--- NOTE | 2017-09-04 18:40 | NUR ---
ROUNDS MADE, WAITING ON PATIENT TO HAVE VENOUS DOPPLE ON LEFT LEG, PATIENT NEEDS WOUNDS DRESSED ON L LEG, WILL PASS ON TO AUTOMOBILE BODY REPAIRER, DUE TO DOPPLER NOT DONE YET, SPOKE WITH ULTRASOUND STATED THEY WOULD GET TO HER SOON THEY COULD. CPOC
--- NOTE | 2017-09-04 19:32 | NUR ---
PT RESTING IN BED. STATES SHE NEEDS HER IMMODIUM BECAUSE SHE HAS LOOSE STOOL TODAY. PT STATES THEY DID THE DOPPLER. WILL PUT DRSG ON SOON DONE WITH MED PASS AND MEETING ALL MY PT. PT DENIES ANY NEEDS. NO S/S OF DISTRESS. CALL LIGHT IN REACH AND BED LOW. WILL CPOC
[2017-09-04 20:00] VITALS: BP 117/90
--- NOTE | 2017-09-04 22:33 | NUR ---
CLEANED WOUNDS ON LEFT TOP OF FOOT AND LOWER LEG WITH WOUND CAR INSPECTOR AND PAT DRY, APPLIED SANTYL OINTMENT TO WOUND BED OF WOUND ON LEFT TOP OF FOOT. APPLIED ANTIBIOTIC OINTMENT TO WOUNDS ON LOWER LEFT LEG.. COVERED ALL WOUNDS WITH DRY 4X4'S AND WRAPED LOOSELY WITH KERLIX AND SECURED WITH TAPE, SIGNED AND DATED. PT DENIES ANY PAIN OR CONCERNS. NO S/S OF DISTRESS. WILL CPOC
[2017-09-05] VITALS: BP 130/57
--- NOTE | 2017-09-05 03:28 | NUR ---
PT SITTING ON SIDE OF BED. STATES SHE DOES NOT NEED ANY THING, SHE JUST CANNOT SLEEP AT THIS TIME. PT HAS NO S/S OF DISTRESS. DRSG IS CDI. BED LOW AND CALL LIGHT IN REACH. WILL CPOC
[2017-09-05 04:00] VITALS: BP 130/49
[2017-09-05 07:17] LABS: BASOPHILS 0.2 % (0-2); EOSINOPHILS 2.3 % (0-7); HEMATOCRIT 29.6 % (36.0-48.0); HEMOGLOBIN 9.9 g/dL (12-16); MCH 31.4 pg (26.0-34.0); MCHC 33.4 g/dL (31.0-37.0); MONOCYTES 10.8 % (2-11); NEUTROPHILS 73.7 % (40-80); PLATELET COUNT 113 10x3/uL (130-400); RBC 3.15 10x6/uL (4.00-5.40); RDW 20.5 % (11.5-14.5)
[2017-09-05 07:37] LABS: ANION GAP 12.4 mmol/L (8-16); CALCIUM 8.2 mg/dL (8.5-10.1); CARBON DIOXIDE 25.7 mmol/L (21.0-32.0); CREATININE - SERUM 2.2 mg/dL (0.6-1.3); PHOSPHOROUS 4.7 mg/dL (2.5-4.9); POTASSIUM - SERUM 4.1 mmol/L (3.5-5.1)
--- NOTE | 2017-09-05 07:40 | NUR ---
PT DECLINES THE INSULIN.STATES ACCORDING TO HER SLIDING SCALE AT HOME SHE WOULDNT NEED ANY COVERAGE. PT FSBS IS 169 SLIDING SCALE CALLS FOR 2 UNITS. PT DENIES ANY NEEDS AT THIS TIME. NO S/S OF DISTRESSS. WILL CPOC
--- NOTE | 2017-09-05 07:56 | NUR ---
PT SITTING UP IN BED C/O BLEEDING AT LAP VIOLETTA SITE. UPPER INCISION HAS BLED THROUGH THE REINFORCED DRESSING. PAGED DR DELACRUZ BECAUSE HE IS [employer]GE[employer]. SAID TO JUST REINFORCE DSNG AGAIN AND PAGE YUNG. DONE.
--- NOTE | 2017-09-05 07:59 | NUR ---
PT SITTING UP ON SIDE OF BED DENIES NEEDS WILL CONT TO MONITOR
[2017-09-05 08:00] VITALS: BP 139/52
--- NOTE | 2017-09-05 10:00 | NUR ---
PT DSNG CHANGE TO LEFT LEG/FOOT PER ORDER. PT TOLERATED WELL. DRESSING IS CDI. SIGNED AND DATED.
[2017-09-05 12:00] VITALS: BP 127/42
--- NOTE | 2017-09-05 12:39 | NUR ---
PT IS WITHOUT IV ACCESS. ATTEMPTED TO SITE PT X2 TIMES. NO SUCCESS.
--- NOTE | 2017-09-05 12:55 | NUR ---
ASKED DIOGO LEONE IF WE COULD SWITCH IV LASIX TO PO. SHE IS GOING TO LOOK AT CHART. IN THE MEANTIME WILL ASK ANY AVAILABLE NURSE TO ATTEMPT RESITE..
[2017-09-05 18:02] VITALS: BP 133/50
[2017-09-05 20:00] VITALS: BP 113/52
--- NOTE | 2017-09-05 21:56 | NUR ---
PT RESTING WITH EYES CLOSED. RESP EVEN AND REGULAR. SR UP X2, CALL LIGHT WITHIN REACH.
[2017-09-06] VITALS: BP 117/83
[2017-09-06 04:00] VITALS: BP 121/38
[2017-09-06 06:33] LABS: BASOPHILS 0.2 % (0-2); EOSINOPHILS 2.2 % (0-7); HEMATOCRIT 26.7 % (36.0-48.0); HEMOGLOBIN 8.8 g/dL (12-16); IMMATURE GRANULOCYTES 0.5 % (0-5); MCH 30.7 pg (26.0-34.0); MONOCYTES 8.7 % (2-11); NEUTROPHILS 79.4 % (40-80); PLATELET COUNT 110 10x3/uL (130-400); RBC 2.87 10x6/uL (4.00-5.40); RDW 20.5 % (11.5-14.5); WBC 6.2 10x3/uL (4.8-10.8)
[2017-09-06 06:36] LABS: ANION GAP 14.2 mmol/L (8-16); CALCIUM 8.2 mg/dL (8.5-10.1); CARBON DIOXIDE 23.8 mmol/L (21.0-32.0); CREATININE - SERUM 1.9 mg/dL (0.6-1.3); DIGOXIN 1.43 ng/mL (0.90-2.00); MAGNESIUM - SERUM 2.2 mg/dL (1.8-2.4); PHOSPHOROUS 4.4 mg/dL (2.5-4.9)
--- NOTE | 2017-09-06 07:15 | NUR ---
REPORT RECEIVED. PT RESTING QUIETLY, RR EVEN AND UNLABORED. PT DENIES NEEDS AT THIS TIME. WILL CTM.
[2017-09-06 08:16] VITALS: BP 112/43
--- NOTE | 2017-09-06 09:45 | NUR ---
COMPLETED DRESSING CHANGE. APPLIED MEDICATION ORDERED TO LLE, AND APPLIED DRESSING. PT RESTING QUIETLY, WILL CTM.
[2017-09-06 11:23] VITALS: BP 127/47
--- NOTE | 2017-09-06 13:00 | NUR ---
ATTEMPTED IV STICK X2. UNSUCCESSFUL FOR IV START. WILL ASK ANOTHER STAFF MEMBER TO ATTEMPT IV. WILL CTM.
--- NOTE | 2017-09-06 13:31 | NUR ---
ATTEMPTED TO CALL ER REGARDING NO IV ACCESS. REPORTED THAT I SHOULD CALL THE OTHER UNITS FIRST, SINCE ER IS VERY BUSY. ATTEMPTED TO CALL ICU, THEY DID NOT ANSWER THE PHONE. WILL CALL ICU AGIAN LATER TODAY.
--- NOTE | 2017-09-06 14:00 | NUR ---
PT IS HAVING FREQUENT LOOSE STOOLS. WILL SEND SAMPLE TO LAB FOR C-DIFF.
--- NOTE | 2017-09-06 14:45 | NUR ---
CALLED ICU REARDING PT HAVING NO IV. ICU STAFF MEMEBER REPORTED THAT SHE WOULD PASS IT ALONG TO THE CHARGE NURSE.
--- NOTE | 2017-09-06 15:00 | NUR ---
MAGAZINE WORKER REPORTED BP OF 93/47 AFTER 4 EPISODES OF DIARRHEA. REPORTED PT CONDTION FOR DR. DRIVER. TOLD ME TO OBTAIN IV ACCESS. EXPLAINED THAT I HAVE CALLED ER AND ICU AND THEY REPORTED THAT THEY ARE VERY BUSY, THEY WOULD TRY TO COME START AN IV, BUT THEY WERE UNSURE IF THEY WOULD HAVE TIME. WILL CTM PT CONDITION.
--- NOTE | 2017-09-06 15:45 | NUR ---
20 IV STARTED TO RIGHT FA PER FLETCHER GABRIEL RN X1 STICK. WILL GIVE LASIX IF BP HAS INCREASED SINCE MEMORIAL DESIGNER REPORT OF LOW BP.
--- NOTE | 2017-09-06 15:45 | NUR ---
MANAGER WELDING RECHECK BP MANNUALLY, BP IS BACK TO BASELINE. WILL RECHECK AGAIN PRIOR TO GIVING LASIX.
[2017-09-06 15:46] VITALS: BP 116/63
--- NOTE | 2017-09-06 16:14 | NUR ---
BP IS NOW 114/78. WILL GIVE LASIX ORDERED AND CTM.
--- NOTE | 2017-09-06 16:20 | NUR ---
PT INCONTIENT SEVERAL TIMES TODAY. INCONTINENT DURING MED PASS, CHANGED BRIEF AND ASSIST PT TO PERFORM PERSONAL HYGIENE CARE. WILL CTM.
--- NOTE | 2017-09-06 18:15 | NUR ---
RR EVEN AND UNLABORED, PT REPORTS SOME SORENESS ON HER BUTTOCK FROM FREQUENT LOOSE STOOLS. WILL APPLY GLADYS CREAM ORDERED. WILL GIVE REPORT ON PT CONDTION FOR THE DAY.
--- NOTE | 2017-09-06 19:40 | NUR ---
RECEIVED REPORT,WILL ASSUME CARE OF PT, ASSISTED PT BACK TO BED FROM BSC, PT DENIES ANY OTHER NEEDS, BED IS LOW, SR2, CALL LIGHT IN REACH, WILL CONTINUE PLAN OF CARE
[2017-09-06 20:00] VITALS: BP 113/44
[2017-09-07] VITALS: BP 127/51
--- NOTE | 2017-09-07 03:23 | NUR ---
ASSESSMENT COMPLETE, SITTING UP ON SIDE OF BED, DENIES ANY NEEDS AT THIS TIME, BED IS LOW, SRX2, CALL LIGHT IN REACH, WILL CONTINUE PLAN OF CARE
[2017-09-07 05:06] VITALS: BP 146/64
[2017-09-07 06:39] LABS: BASOPHILS 0.2 % (0-2); EOSINOPHILS 2.2 % (0-7); HEMATOCRIT 25.9 % (36.0-48.0); HEMOGLOBIN 8.6 g/dL (12-16); IMMATURE GRANULOCYTES 0.7 % (0-5); LYMPHOCYTES 11.2 % (15-50); MCHC 33.2 g/dL (31.0-37.0); MCV 93.5 fL (80.0-100.0); MONOCYTES 10.9 % (2-11); NEUTROPHILS 74.8 % (40-80); PLATELET COUNT 106 10x3/uL (130-400); RBC 2.77 10x6/uL (4.00-5.40); RDW 20.6 % (11.5-14.5); WBC 4.1 10x3/uL (4.8-10.8)
[2017-09-07 07:02] LABS: TOTAL IRON BIND CAPACITY 203 ug/dl (260-445)
[2017-09-07 07:12] LABS: % SATURATION 29 % (15-55); IRON 60 ug/dl (35-150); UNSAT IRON BIND CAPACITY 143 ug/dl (150-375)
[2017-09-07 07:42] LABS: ANION GAP 13.1 mmol/L (8-16); CALCIUM 8.1 mg/dL (8.5-10.1); CARBON DIOXIDE 25.9 mmol/L (21.0-32.0); CREATININE - SERUM 1.8 mg/dL (0.6-1.3); PHOSPHOROUS 3.9 mg/dL (2.5-4.9)
--- NOTE | 2017-09-07 07:47 | NUR ---
AM ROUNDING- RECEIVED REPORT FROM COORDINATOR OF REHABILITATION SERVICES NURSE CRISELDA. PT IS CURRENTLY ON BEDSIDE COMMODE. ON 02 AT 2L VIA NC. ON MONITOR SHOWING SR, HR 69 WITH BBB, FIRST DEGREE BLOCK, AND PAUSES AT TIMES PER [place] IN TELEMETRY. IV SEEN TO RIGHT FOREARM THAT IS CURRENTLY SALINE LOCKED. PT IS C/O 7/10 PAIN FROM HEADACHE. WILL SEE WHAT PT HAS FOR PAIN AND TX PER ORDER. WILL CONTINUE TO MONITOR AND CONTINUE WITH PLAN OF CARE.
[2017-09-07 08:00] VITALS: BP 168/57
--- NOTE | 2017-09-07 10:06 | NUR ---
PT APPEARS SOB AND STATES SHE FEELS LIKE SHE ISN'T GETTING ANY OXYGEN. THIS NURSE CHECKED PTS BLOOD PRESSURE WHICH IS 135/66. PULSE OX IS 99% ON 02 AT 3L VIA NC (TURNED PTS 02 UP TO 3L VIA NC WHEN SOB). WILL CONTINUE TO MONITOR.
[2017-09-07 12:00] VITALS: BP 144/66
--- NOTE | 2017-09-07 15:27 | NUR ---
THIS NURSE DID DAILY DRESSING CHANGE TO PTS LEFT LOWER LEG AND TOP OF LEFT FOOT AREA. MULTIPLE SCABS SEEN TO LEFT LOWER LEG. SCABS CLEANED WITH WOUND CLEANSER, AREA PAT DRIED AND COVERED WITH DRY 4X4S AND WRAPPED WITH KERLIX. WOUND SEEN TO TOP OF LEFT FOOT MEASURING 2CM X 1CM. NO DRAINAGE SEEN. YELLOW TISSUE SEEN TO MIDDLE OF WOUND BED. CLEANED WOUND WITH WOUND CLEANSER, PAT DRIED, COVERED WITH DRY 4X4S AND WRAPPED WITH KERLIX. DRESSING INITIALED AND DATED.
[2017-09-07 16:00] VITALS: BP 155/53
--- NOTE | 2017-09-07 17:57 | NUR ---
PT IS CURRENTLY SITTING UP IN ROOM WITH EYES OPEN RESTING. DR. DUMONT JUST CAME BY PTS ROOM TO CHECK IN ON PT. DR. DUMONT ASKED ABOUT PTS LASIX AND IF PT HAS HAD OUTPUT. I INFORMED DR. DUMONT THAT PT HAS HAD ABOUT 1,000CC OUTPUT. NO NEED AT THIS CURRENT TIME. WILL REDRESS PTS DRESSINGS DO TO DRAINAGE. WILL CONTINUE TO MONITOR.
--- NOTE | 2017-09-07 18:22 | NUR ---
PTS DRESSING TO LEFT LOWER EXTREMITY CHANGED FOR SECOND TIME TODAY ORDER DUE TO PT HAVING DRAINAGE.
--- NOTE | 2017-09-07 19:46 | NUR ---
RESUMED CARE OF PT, LYING IN BED RESPIRATIONS EVEN AND UNLABORED ON 2LPM VIA NC. 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 RIGHT FOREARM SALINE LOCKED. DRESSINGS TO LEFT LEG C/D/I. CALL LIGHT IN REACH. WILL CONTINUE TO MONITOR. SEE NURSE ASSESSMENT.
[2017-09-07 20:00] VITALS: BP 114/79
--- NOTE | 2017-09-07 22:17 | NUR ---
NIGHT MEDS GIVEN, 6 UNITS OF HUMALOG FOR FSBS 236. LEFT LEG DRESSING CHANGED. WILL CONTINUE TO MONITOR.
[2017-09-08] VITALS: BP 122/42
[2017-09-08 04:00] VITALS: BP 110/46
--- NOTE | 2017-09-08 04:15 | NUR ---
REMOVED LIDOCAINE PATCH FROM BACK, REQUESTS THAT NEXT PATCH BE TO LEFT SHOULDER AREA. WILL CONTINUE TO MONITOR.
--- NOTE | 2017-09-08 05:29 | NUR ---
AM MEDS GIVEN, NO CHANGES FROM PREVIOUS ASSESSMENT. CALL LIGHT IN REACH.
[2017-09-08 06:36] LABS: ANION GAP 13.8 mmol/L (8-16); CALCIUM 7.9 mg/dL (8.5-10.1); CARBON DIOXIDE 23.5 mmol/L (21.0-32.0); CREATININE - SERUM 1.9 mg/dL (0.6-1.3); PHOSPHOROUS 4.3 mg/dL (2.5-4.9); POTASSIUM - SERUM 4.3 mmol/L (3.5-5.1)
[2017-09-08 06:40] LABS: BASOPHILS 0 % (0-2); EOSINOPHILS 2.1 % (0-7); HEMATOCRIT 26.2 % (36.0-48.0); HEMOGLOBIN 8.6 g/dL (12-16); IMMATURE GRANULOCYTES 0.5 % (0-5); LYMPHOCYTES 14.7 % (15-50); MCH 30.5 pg (26.0-34.0); MCHC 32.8 g/dL (31.0-37.0); MCV 92.9 fL (80.0-100.0); MEAN PLATELET VOLUME 13.3 fL (7.4-10.4); MONOCYTES 14.2 % (2-11); NEUTROPHILS 68.5 % (40-80); PLATELET COUNT 96 10x3/uL (130-400); RBC 2.82 10x6/uL (4.00-5.40); RDW 20.6 % (11.5-14.5); WBC 3.7 10x3/uL (4.8-10.8)
[2017-09-08 07:12] LABS: PLATELET ESTIMATE DECREASED
--- NOTE | 2017-09-08 07:15 | NUR ---
RECIEVED REPORT ON PATIENT, PATIENT IS SLEEPING AT THIS TIME, NAD NOTED. CHEST RISES AND FALLS EQUALL. PATIENT IS SR ON MONITOR WITH BBB, RATE OF 56. BED IS LOW AND LOCKED AT THIS TIME. CALL LIGHT IN REACH. WILL CONT TO MONITOR PATIENT. CPOC
[2017-09-08 08:00] VITALS: BP 128/42
--- NOTE | 2017-09-08 09:04 | NUR ---
MORNING MEDICATION GIVEN. DENIES ANY NEEDS. CPOC
--- NOTE | 2017-09-08 11:58 | NUR ---
PATIENT SITTING UP IN BED. FSBS 215, 4 UNITS OF INSULIN GIVEN IN RIGHT ARM. NO COMPLAINTS OR REQUESTS AT THIS TIME. BED IN LOWEST POSITION AND LOCKED WITH CALL LIGHT IN REACH. CPOC
[2017-09-08 12:00] VITALS: BP 114/60
--- NOTE | 2017-09-08 13:33 | NUR ---
Nutrition follow-up: Diet: Low sodium PO intake ~60% average of meals Labs reviewed Multiple BM's recorded. Wt: 180# Will continue to provide food choices and honor food preferences. Following.
--- NOTE | 2017-09-08 13:38 | NUR ---
PATIENT RESTING IN BED. WOUNDS ON LEFT FOOT AND LOWER LEG WERE ASSESSED, CLEANED, AND DRIED. SANTYL APPLIED TO WOUND BED ON LEFT FOOT, THEN COVERED WITH ADAPTIC. APPLIED TRIPLE ANTIBIOTIC OINTMENT TO WOUNDS ON LOWER LEFT LEG. ALL WOUNDS COVERED WITH DRY 4X4S, LOOSELY WRAPPED WITH KERLIX, AND SECURED WITH TAPE. BED IN LOWEST POSITION AND LOCKED, CALL LIGHT IN REACH, NO REQUESTS OR COMPLAINTS AT THIS TIME. CPOC.
--- NOTE | 2017-09-08 15:28 | NUR ---
PATIENT SITTING UP ON SIDE OF BED. NO REQUESTS OR COMPLAINS AT THIS TIME. BED IN LOWEST POSITION AND CALL LIGHT IN REACH.
[2017-09-08 16:00] VITALS: BP 114/64
--- NOTE | 2017-09-08 16:46 | NUR ---
FSBS 192, 2 UNITS OF HUMALOG GIVEN. CPOC
--- NOTE | 2017-09-08 16:52 | NUR ---
PATIENT SITTING ON SIDE OF BED. STATES SHE BUMPED HER ARM ON BEDSIDE TABLE. TWO PREVIOUS SKIN TEARS WERE OPENED BACK UP AND BLEEDING. WOUNDS ASSESSED, CLEANED, AND GAUZE BANDAGE APPLIED. PATIENT RESTING IN BED WHEN I LEFT THE ROOM. DENIES ANY NEEDS AT THIS TIME. CPOC.
--- NOTE | 2017-09-08 18:33 | NUR ---
PATIENT SLEEPING, NAD NOTED. DOES AROUSE TO VOICE, DENIES ANY NEEDS. CPOC
--- NOTE | 2017-09-08 19:35 | NUR ---
ROUNDING NOTE: PT IS A,A,OX3 AT CHANGE OF SHIFT. PT WEARING 2L OF OXYGEN VIA NC. PT'S BILATERAL LEGS W/ +3 DEPENDENT, PITTING EDEMA. SKIN IS TIGHT FROM THE FLUID. PEDAL PULSES PALPABLE, STRONG BILATERALLY. PT HAS A DRESSING TO LEFT FOOT AND LEG. PER DAY NURSE, IT IS BEING CHANGED BID AND PRN. ON TEL, PT IS SR W/ BBB. WILL CONT TO MONITOR.
[2017-09-08 22:18] VITALS: BP 106/46
--- NOTE | 2017-09-08 23:30 | NUR ---
DRESSING CHANGE TO LEFT FOOT W/ SANTYL AND ADAPTIC DONE AND WRAPPED W/ KERLIX. DRESSING CHANGE TO LEFT LEG W/ TRIPLE ANTIBIOTIC OINTMENT TO NUMEROUS SMALL SORES COVERED W/ 4x4S AND WRAPPED W/ KERLIX. CALMOSEPTINE APPLIED TO RED, EXCORIATED AREA ON COCCYX/BUTTOCKS. LIDOCAINE PATCH IN PLACE ON PT'S BACK. PT HAS BEEN UP TO BSC NUMEROUS TIMES TO URINATE D/T LASIX Q8HRS. WILL CONT TO MONITOR.
[2017-09-09] VITALS (7 sets, daily range): BP systolic 112–135; BP diastolic 43–63
[2017-09-09 05:26] LABS: BASOPHILS 0.2 % (0-2); EOSINOPHILS 2.3 % (0-7); HEMOGLOBIN 9.6 g/dL (12-16); IMMATURE GRANULOCYTES 0.4 % (0-5); LYMPHOCYTES 15.8 % (15-50); MCH 31.2 pg (26.0-34.0); MCHC 33.1 g/dL (31.0-37.0); MCV 94.2 fL (80.0-100.0); MONOCYTES 7.8 % (2-11); NEUTROPHILS 73.5 % (40-80); PLATELET COUNT 113 10x3/uL (130-400); RBC 3.08 10x6/uL (4.00-5.40); RDW 20.5 % (11.5-14.5)
[2017-09-09 05:35] LABS: WBC 4.7 10x3/uL (4.8-10.8)
[2017-09-09 05:41] LABS: ANION GAP 11.9 mmol/L (8-16); CALCIUM 8.1 mg/dL (8.5-10.1); CARBON DIOXIDE 26.1 mmol/L (21.0-32.0); CREATININE - SERUM 1.9 mg/dL (0.6-1.3); PHOSPHOROUS 4.3 mg/dL (2.5-4.9)
--- NOTE | 2017-09-09 06:36 | NUR ---
NOT ABLE TO OBTAIN STOOL SPECIMEN FOR CDIFF B/C PT DID NOT HAVE A BM DURING THIS SHIFT.
--- NOTE | 2017-09-09 08:00 | NUR ---
AM ROUNDING DONE WITH NIGHT NURSE, PATIENT SITTING ON SIDE OF BED. DR PARRA HERE AND HAS ORDERED HER A K PAD FOR HER BACK SPASMS. ON HEART MONITOR SHOWING SR W BBB, HR 79. ON 2L PER NC W HUMM. RIGHT FA SEEN WITH SALINE LOCK. LEFT ARM SEEN WITH DRY INTACT ESTELITA BANDAGE. ALSO SEEN IS A LEFT LOWER LEG WITH DRY ESTELITA. NON SKID SOCKS ON, IN REPORT PATIENT HAS A DRESSING TO LEFT FOOT. WILL MONITOR.
--- NOTE | 2017-09-09 08:50 | NUR ---
BUMEX 2.5 CC/HR STARTED ORDERED.
[2017-09-09 10:19] LABS: HEPATITIS C ANTIBODY <0.1 (0.0-0.9)
--- NOTE | 2017-09-09 11:55 | NUR ---
Wound care reassessment: Left dorsal foot : 2cm x 2.5cm x yellow slough. Slough appears to be loosening up (spots of redness are seen in wound bed). Foot continues to be edematous. Left lower extremity: All wounds have improved and are healing. Recommend continuing with BREN and loose wrapping with kerlix. From Left shoulder down to wrist are wounds that are similar to wounds on LLE. She states they were blisters that ruptured. Cleansed, applied BREN, adaptic and covered with [id number] with medipore. Left hand has 2 skin tears. Both were covered with calcium alginate and adaptic and secured with 4x4s and medipore. Right foot is edematous but no skin breakdown is noted. Wound care continues to follow.
--- NOTE | 2017-09-09 16:58 | NUR ---
PATIENT TO REFUSE HER QUESTRAN AND HER INSULIN FOR POC GLUCOSE OF 187. SHE STATES THAT SHE DOES NOT TAKE INSULIN UNLESS HER BLOOD SUGAR IS OVER 200.
--- NOTE | 2017-09-09 19:30 | NUR ---
ROUNDING NOTE: PT NOW HAS A BUMEX DRIP RUNNING AT 2.5 VIA RIGHT FOREARM. OXYGEN 3L VIA NC. ON MONITOR SHE IS SR W/ HR 68. PT IS ALERT AND ORIENTED. WILL CONT TO MONITOR.
[2017-09-10 04:00] VITALS: BP 118/50
[2017-09-10 05:42] LABS: BASOPHILS 0 % (0-2); EOSINOPHILS 2.7 % (0-7); HEMATOCRIT 28.4 % (36.0-48.0); HEMOGLOBIN 9.4 g/dL (12-16); IMMATURE GRANULOCYTES 0.4 % (0-5); MCHC 33.1 g/dL (31.0-37.0); MCV 93.7 fL (80.0-100.0); MONOCYTES 8.7 % (2-11); NEUTROPHILS 72.2 % (40-80); PLATELET COUNT 109 10x3/uL (130-400); RBC 3.03 10x6/uL (4.00-5.40); RDW 20.6 % (11.5-14.5); WBC 4.5 10x3/uL (4.8-10.8)
[2017-09-10 05:58] LABS: ANION GAP 13.5 mmol/L (8-16); CALCIUM 8.1 mg/dL (8.5-10.1); CARBON DIOXIDE 24.2 mmol/L (21.0-32.0); CREATININE - SERUM 1.9 mg/dL (0.6-1.3); POTASSIUM - SERUM 4.7 mmol/L (3.5-5.1)
--- NOTE | 2017-09-10 07:45 | NUR ---
DURING THE NIGHT, PT BECAME MORE SOB WITH EXERTION. SHE REPORTED BEING VERY SOB AND FATIGUED DUE TO GETTING ON AND OFF THE BEDSIDE COMMODE ALMOST CONSTANTLY DUE TO HER DIURESIS. PT REQUESTED UPDRAFTS AND A MAGDALENO CATHETER IF POSSIBLE. DISCUSSED WITH CHONG RENAL SHEET CUTTING OPERATOR WHO AGREES W/ DUONEB UPDRAFTS Q4HRS PRN AND THE PLACEMENT OF A MAGDALENO CATHETER. PT'S MAGDALENO PLACED WITHOUT ISSUE. SHE FEELS MUCH BETTER AFTER THE MAGDALENO IS IN PLACE AND THE DUONEBS HELPED A GREAT DEAL WELL. WILL CONT TO MONITOR.
[2017-09-10 08:00] VITALS: BP 118/45
[2017-09-10 11:51] VITALS: BP 92/63
[2017-09-10 15:18] LABS: ANION GAP 14.1 mmol/L (8-16); CALCIUM 8.1 mg/dL (8.5-10.1); CARBON DIOXIDE 22.8 mmol/L (21.0-32.0); CREATININE - SERUM 1.9 mg/dL (0.6-1.3); POTASSIUM - SERUM 4.9 mmol/L (3.5-5.1)
[2017-09-10 17:26] VITALS: BP 139/64
--- NOTE | 2017-09-10 17:59 | NUR ---
PROVIDED PT WITH PRN FLEXERIL FOR MS REQUESTED. BUMPED BUMEX DRIP UP TO 5ML/HR ORDERED. PT RESTING AND DENIES ANY FURTHER NEEDS AT THIS TIME. WILL CPOC.
--- NOTE | 2017-09-10 19:30 | NUR ---
RESUMED CARE OF PT, LYING IN BED WITH EYES CLOSED RESPIRATIONS EVEN AND UNLABORED ON 2LPM VIA NC. 73 SR WITH 1ST DEGREE AVB AND BBB ON TELEMETRY. MAGDALENO TO GRAVITY AND RIGHT FOREARM INFUSING BUMEX @ 5. CALL LIGHT IN REACH. WILL CONTINUE TO MONITOR. SEE NURSE ASSESSMENT.
--- NOTE | 2017-09-10 21:43 | NUR ---
LIDOCAINE PATCH REMOVED, ASSISSTED BACK TO BED. LEG DRESSINGS REDRESSED. CALL LIGHT IN REACH. WILL CONTINUE TO MONITOR.
[2017-09-10 22:49] VITALS: BP 121/46
[2017-09-11] VITALS: BP 126/45
--- NOTE | 2017-09-11 00:14 | NUR ---
CHIMNEY BUILDER AT BEDSIDE, CALL LIGHT IN REACH. WILL CONTINUE WITH PLAN OF CARE.
--- NOTE | 2017-09-11 05:45 | NUR ---
NO CHANGES FROM PREVIOUS ASSESSMENT, CALL LIGHT IN REACH. AM MEDS GIVEN. WILL CONTINUE TO MONITOR.
[2017-09-11 06:51] LABS: BASOPHILS 0.2 % (0-2); EOSINOPHILS 1.6 % (0-7); HEMATOCRIT 27.3 % (36.0-48.0); HEMOGLOBIN 9.2 g/dL (12-16); IMMATURE GRANULOCYTES 0.7 % (0-5); LYMPHOCYTES 10.5 % (15-50); MCH 31.3 pg (26.0-34.0); MCHC 33.7 g/dL (31.0-37.0); MCV 92.9 fL (80.0-100.0); MONOCYTES 8.5 % (2-11); NEUTROPHILS 78.5 % (40-80); PLATELET COUNT 101 10x3/uL (130-400); RBC 2.94 10x6/uL (4.00-5.40); RDW 20.7 % (11.5-14.5); WBC 5.5 10x3/uL (4.8-10.8)
[2017-09-11 07:05] LABS: ANION GAP 13.8 mmol/L (8-16); CALCIUM 8.2 mg/dL (8.5-10.1); CARBON DIOXIDE 22.9 mmol/L (21.0-32.0); CREATININE - SERUM 1.9 mg/dL (0.6-1.3); POTASSIUM - SERUM 4.7 mmol/L (3.5-5.1)
[2017-09-11 08:00] VITALS: BP 140/68
[2017-09-11 12:00] VITALS: BP 140/50
[2017-09-11 16:00] VITALS: BP 130/60
[2017-09-11 21:24] VITALS: BP 128/56
[2017-09-12 01:40] VITALS: BP 122/40
[2017-09-12 04:00] VITALS: BP 111/57
--- NOTE | 2017-09-12 05:09 | NUR ---
PT AWAKE, WATCHING TV. PT ON 2.5L OF O2 VIA NC. PT DENIES ANY NEEDS OTHER THAN A CUP OF ICE, PT RECEIVED ICE. PT HAS NO S/S OF DISTRESS. BED LOW AND CALL LIGHT IN REACH .WILL CPOC
[2017-09-12 05:30] LABS: BASOPHILS 0.2 % (0-2); EOSINOPHILS 1.5 % (0-7); HEMATOCRIT 27.6 % (36.0-48.0); HEMOGLOBIN 9.2 g/dL (12-16); IMMATURE GRANULOCYTES 0.5 % (0-5); LYMPHOCYTES 12.4 % (15-50); MCH 31.2 pg (26.0-34.0); MCHC 33.3 g/dL (31.0-37.0); MCV 93.6 fL (80.0-100.0); MEAN PLATELET VOLUME 13.1 fL (7.4-10.4); MONOCYTES 8.1 % (2-11); NEUTROPHILS 77.3 % (40-80); PLATELET COUNT 111 10x3/uL (130-400); RBC 2.95 10x6/uL (4.00-5.40); RDW 20.8 % (11.5-14.5)
[2017-09-12 05:48] LABS: ANION GAP 15.2 mmol/L (8-16); CALCIUM 8.5 mg/dL (8.5-10.1); CARBON DIOXIDE 25.2 mmol/L (21.0-32.0); CREATININE - SERUM 1.9 mg/dL (0.6-1.3); DIGOXIN 0.57 ng/mL (0.90-2.00); POTASSIUM - SERUM 4.4 mmol/L (3.5-5.1)
[2017-09-12 08:00] VITALS: BP 108/57
--- NOTE | 2017-09-12 10:44 | NUR ---
TELEMETRY SR. IV PATENT. SHARLA INTACT. STUDENT AT BS. WILL CONT. PLAN OF CARE.
[2017-09-12 12:00] VITALS: BP 107/56
--- NOTE | 2017-09-12 12:51 | NUR ---
Nutrition follow-up: Diet: low sodium PO intake 50-75% of meals Labs reviewed Wt: 190# +BM Will continue to provide food choices and honor food preferences within diet restrictions. RDN following.
[2017-09-12 16:00] VITALS: BP 139/61
[2017-09-12 21:05] VITALS: BP 141/53
--- NOTE | 2017-09-12 22:25 | NUR ---
PT SITTIG UP IN BED WATCHING TV. GAVE SCHEDULED MEDS. FSBS 182 - PT REFUSED S/S INSULIN. LLE DRESSING C/D/I. NO OTHER NEEDS.
[2017-09-13 01:17] VITALS: BP 130/49
--- NOTE | 2017-09-13 04:07 | NUR ---
RESTING WITH EYES CLOSED, RESPERATIONS EVEN, NO S/S DISTRESS NOTED
[2017-09-13 04:34] LABS: BASOPHILS 0.2 % (0-2); EOSINOPHILS 1.4 % (0-7); HEMATOCRIT 27.5 % (36.0-48.0); HEMOGLOBIN 9.2 g/dL (12-16); IMMATURE GRANULOCYTES 0.6 % (0-5); LYMPHOCYTES 10.5 % (15-50); MCH 31.3 pg (26.0-34.0); MCHC 33.5 g/dL (31.0-37.0); MCV 93.5 fL (80.0-100.0); NEUTROPHILS 79.3 % (40-80); PLATELET COUNT 93 10x3/uL (130-400); RBC 2.94 10x6/uL (4.00-5.40); RDW 21.1 % (11.5-14.5); WBC 6.4 10x3/uL (4.8-10.8)
[2017-09-13 04:42] LABS: ANION GAP 13.5 mmol/L (8-16); CALCIUM 8.4 mg/dL (8.5-10.1); CREATININE - SERUM 1.7 mg/dL (0.6-1.3); POTASSIUM - SERUM 4.5 mmol/L (3.5-5.1)
[2017-09-13 05:28] VITALS: BP 136/48
--- NOTE | 2017-09-13 07:25 | NUR ---
AM ROUNDS- PT IN BED, WATCHING TV, RESP EVEN AND REGULAR ON 2L, RT HAND IV INFUSING BUMEX AT 5. MAGDALENO DRAINING YELLOW URINE TO GRAVITY. DRESSING NOTED TO LT LEG CLEAN AND INTACT. PT DENIES ANY NEEDS AT THIS TIME, BED LOW AND WHEELS LOCKED, BEDSIDE RAILS X2, CALL LIGHT IN REACH, NAD NOTED, WILL CONTINUE PLAN OF CARE.
[2017-09-13 08:02] VITALS: BP 124/58
--- NOTE | 2017-09-13 09:12 | NUR ---
AM MEDS GIVEN AT THIS TIME. PT REFUSED TO TAKE QUESTRIAN. PT IN BED, EATING BREAKFAST, DENIES ANY NEEDS AT THIS TIME. CALL LIGHT IN REACH, NAD NOTED, WILL CONTINUE TO MONITOR.
--- NOTE | 2017-09-13 11:25 | NUR ---
BLOOD SUGAR OF 198, 2UNITS OF HUMALOG GIVEN PER S/S. PT IN BED, DENIES ANY NEEDS AT THIS TIME. CALL LIGHT IN REACH, NAD NOTED.
--- NOTE | 2017-09-13 11:54 | NUR ---
MARANDA HERE TO SEE PT. PT GETTING A BED BATH AT THIS TIME. MARANDA WAS NOT ABLE TO VISIT WITH PT, WILL COME BACK IF PT REQUEST TO SEE HIM AGAIN.
[2017-09-13 12:33] VITALS: BP 136/73
--- NOTE | 2017-09-13 13:30 | NUR ---
PROVIDED DRESSING CHANGE TO LT LOWER LEG, LT ARM, RT LOWE LEG. PT TOLERATED PROCEDURE WELL. PT DENIES ANY NEEDS AT THIS TIME, CALL LIGHT IN REACH, NAD NOTED.
[2017-09-13 16:26] VITALS: BP 123/66
--- NOTE | 2017-09-13 16:35 | NUR ---
BLOOD SUGAR OF 180, 2UNITS OF HUMALOG GIVEN PER S/S. PT IN BED, DENIES ANY NEEDS AT THIS TIME, CALL LIGHT IN REACH, NAD NOTED.
[2017-09-13 20:16] VITALS: BP 124/72
[2017-09-14 00:02] VITALS: BP 130/65
--- NOTE | 2017-09-14 02:40 | NUR ---
PT LYING IN BED WITH HOB UP FOR COMFORT. EYES CLOSED. CHEST RISING AND FALLING. BED IN LOWEST POSITION AND CALL LIGHT WITHIN REACH.
[2017-09-14 04:50] VITALS: BP 121/61
[2017-09-14 04:54] LABS: BASOPHILS 0.2 % (0-2); EOSINOPHILS 1.9 % (0-7); HEMATOCRIT 28.8 % (36.0-48.0); HEMOGLOBIN 9.7 g/dL (12-16); IMMATURE GRANULOCYTES 0.8 % (0-5); LYMPHOCYTES 10.3 % (15-50); MCH 31.8 pg (26.0-34.0); MCHC 33.7 g/dL (31.0-37.0); MCV 94.4 fL (80.0-100.0); MONOCYTES 8.4 % (2-11); NEUTROPHILS 78.4 % (40-80); PLATELET COUNT 103 10x3/uL (130-400); RBC 3.05 10x6/uL (4.00-5.40); RDW 21.4 % (11.5-14.5); WBC 6.2 10x3/uL (4.8-10.8)
[2017-09-14 05:14] LABS: ANION GAP 10.9 mmol/L (8-16); CALCIUM 8.6 mg/dL (8.5-10.1); CARBON DIOXIDE 28.6 mmol/L (21.0-32.0); CREATININE - SERUM 1.7 mg/dL (0.6-1.3); POTASSIUM - SERUM 4.5 mmol/L (3.5-5.1)
--- NOTE | 2017-09-14 08:41 | NUR ---
AM MEDS GIVEN AT THIS TIME. PT IN BED, EATING BREAKFAST, DENIES ANY NEEDS AT THIS TIME. AT BEDSIDE, NAD NOTED, WILL CONTINUE PLAN OF CARE.
[2017-09-14 08:47] VITALS: BP 126/40
[2017-09-14 12:03] VITALS: BP 115/64
--- NOTE | 2017-09-14 15:19 | NUR ---
PT UP TO SIDE OF BED, C/O OF SOB, O2 SAT IS 94% ON 3L. INSTRUCTED PT TO TAKE SLOW DEEP BREATHS IN THROUGH HER NOSE AND OUT HER MOUTH. PT DENIES ANY OTHER NEEDS AT THIS TIME, NAD NOTED, WILL CONTINUE TO MONITOR.
--- NOTE | 2017-09-14 15:40 | NUR ---
PT UP TO CHAIR, STATES THAT SHE CAN BREATH A LOT BETTER, DENIES ANY NEEDS AT THIS TIME. CALL LIGHT IN REACH, NAD NOTED.
[2017-09-14 16:23] VITALS: BP 110/46
--- NOTE | 2017-09-14 17:10 | NUR ---
BLOOD SUGAR OF 151, 2UNITS OF HUMALOG GIVEN PER S/S. ALSO PROVIDED PT WITH A CUP OF ICE WATER. PROVIDED DRESSING CHANGE TO RT AND LT LOWER LEGS, AND LT ARM. PT DENIES ANY NEEDS AT THIS TIME. CALL LIGHT IN REACH, NAD NOTED.
[2017-09-14 20:43] VITALS: BP 108/48
--- NOTE | 2017-09-14 22:29 | NUR ---
INITIAL ROUNDS COMPLETED AT 1920 HRS. PT DENIED ANY DISCOMFORT. ASSESSMENT COMPLETED AT 2010 HRS. VSS. SR WITH BBB PER CM HR 93. O2 2LNC. DRESSINGS NOTED TO R 2ND TOS, R LOWER LEG, L LOWER LEG AND FOOT AND LFA X2. SORES NOTED TO L FOREHEAD. LUNGS DIMINISHED IN BASES BILAT. NO IV AT THAT TIME. MAGDALENO DRAINING DARK YELLOW URINE. IV STARTED #22 TO RAC WITH ATTEMPT X1. PT TOLERATED ACTIVITY WELL. BUMEX DRIP RESTARTED AT 5CC/HR. PM FSBS 256. 6 UNITS HUMALOG GIVEN SUB-Q TO UPPER R ARM. PM SNACK SERVED. PM MEDS GIVEN. PT CURRENTLY RESTING WITH EYES CLOSED. RESP EVEN AND REGULAR. SR UP X2, CALL LIGHT WITHIN REACH.
[2017-09-15 00:06] VITALS: BP 96/46
--- NOTE | 2017-09-15 00:19 | NUR ---
PT RESTING WITH EYES CLOSED. RESP EVEN AND REGULAR. SR UP X2, CALL LIGHT WITHIN REACH.
--- NOTE | 2017-09-15 02:29 | NUR ---
PT RESTING WITH EYES CLOSED. RESP EVEN AND REGULAR. SR UP X2, CALL LIGHT WITHIN REACH.
--- NOTE | 2017-09-15 04:19 | NUR ---
PT SAT UP IN A CHAIR FOR APPROX 90 MINUTES. ASSISTED BACK TO BED WITH ASSIST X2. PT VERY UNSTEADY ON FEET. WILL CONTINUE TO MONITOR.
[2017-09-15 05:00] VITALS: BP 120/53
--- NOTE | 2017-09-15 06:40 | NUR ---
VSS THROUGHOUT NIGHT. SR WITH BBB PER CM HR IN LOW 100'S. AM FSBS 197. 2 UNITS HUMALOG GIVEN SUB-Q TO UPPER R ARM. AM MEDS GIVEN WITHOUT DIFFICULTY. NEEDS MET; WILL CONTINUE TO BENY.
--- NOTE | 2017-09-15 07:15 | NUR ---
REPORT RECEIVED. PT SITTING ON SIDE OF BED. PT DENIES NEEDS AT THIS TIME, RR EVEN AND UNLABORED. BUMEX DRIP RUNNING AT 5ML/HR. WILL CTM.
[2017-09-15 08:00] VITALS: BP 148/55
--- NOTE | 2017-09-15 10:15 | NUR ---
CHANGED DRESSING PER ORDERS. PT SLEPT THROUGH MOST OF DRESSING CHANGE. DENIES FUTHER NEEDS, WILL CTM.
[2017-09-15 12:00] VITALS: BP 116/55
--- NOTE | 2017-09-15 13:59 | NUR ---
SPOKE TO FAMILY REGARDING PT CONDTION. VERBALIZED UNDERSTANDING REGARDING INFORMATION GIVEN. DENIES OTHER QUESTIONS. ENCOURAGED FAMILY MEMEBER TO CALL WITH ANY OTHER QUESTIONS SHE HAD.
--- NOTE | 2017-09-15 14:00 | NUR ---
Patient Name: INDIA ELLIS Admission Status: ER Accout number: [id number] Admission Date: 09-04-2017 : 1945 Admission Diagnosis:SHORTNESS OF BREATH Attending: ELLE DRIVER Current LOS: 11 Anticipated DC Date: 09-16-2017 Planned Disposition: Home with Home Health Primary Insurance: MEDICARE A & B PLANNED EXTERNAL PROVIDER: [facility] Discharge Planning Comments: * Is the patient Alert and Oriented? Yes 0 * How many steps to enter\exit or inside your home? 6 0 * PCP DR. BIRD 0 * Pharmacy [facility] 0 * Preadmission Environment Home with Family 0 * ADLs Independent 0 * Equipment Bedside Commode Cane Oxygen Shower Chair Walker 0 * Other Equipment PORTABLE OXYGEN CONCENTRATOR UNKNOWN MEDICAL EQUIPMENT PROVIDER 0 * List name and contact numbers for known caregivers / representatives who currently or will assist patient after discharge: KIMBERLY ELLIS SPOUSE, 0 * Community resources currently utilized Home Health 0 * Please name any agencies selected above. [facility], 0 * Additional services required to return to the preadmission environment? No 0 * Can the patient safely return to the preadmission environment? Yes 0 * Has this patient been hospitalized within the prior 30 days at any hospital? No 0 CM SPOKE TO DEJA OF [facility] WHO REPORTS PT IS ON HOLD FOR HOME HEALTH DUE TO HOSPITAL ADMIT. CM MET WITH PT IN ROOM TO DISCUSS DISCHARGE PLANNING AND NEEDS. PT REPORTS LIVING AT HOME INDEPENDENTLY WITH HER SPOUSE. PT REPORTS HAVING ALL NEEDED MEDICAL EQUIPMENT AT HOME, SHE CANNOT REMEMBER THE NAME OF HER COMPANY; PT HAS HOME HEALTH WITH [facility] FOR NURSING AND THERAPY. CM DISCUSSED AVAILABILITY OF HOME HEALTH, REHAB SERVICES AND MEDICAL EQUIPMENT. PT DENIES DISCHARGE NEEDS OTHER THAN HOME HEALTH, DENIES NEED FOR REHAB SERVICES, REPORTS HER SPOSUE WILL PICK HER UP FOR DISCHARGE HOME. VASU BERRY NOTIFIED OF ABOVE. PHYSICAL THERAPY RECONSULTED. Ticker Wirer: Gabo Freedman
[2017-09-15 14:48] LABS: BASOPHILS 0.1 % (0-2); EOSINOPHILS 0.4 % (0-7); HEMATOCRIT 27.2 % (36.0-48.0); HEMOGLOBIN 8.8 g/dL (12-16); IMMATURE GRANULOCYTES 0.3 % (0-5); LYMPHOCYTES 8.2 % (15-50); MCH 30.8 pg (26.0-34.0); MCHC 32.4 g/dL (31.0-37.0); MCV 95.1 fL (80.0-100.0); MONOCYTES 9.9 % (2-11); NEUTROPHILS 81.1 % (40-80); PLATELET COUNT 86 10x3/uL (130-400); RBC 2.86 10x6/uL (4.00-5.40); RDW 21.6 % (11.5-14.5)
[2017-09-15 15:04] LABS: ANION GAP 12.2 mmol/L (8-16); CALCIUM 8.1 mg/dL (8.5-10.1); CARBON DIOXIDE 27.8 mmol/L (21.0-32.0)
[2017-09-15 17:21] VITALS: BP 106/53
--- NOTE | 2017-09-15 18:42 | NUR ---
PT ASLEEP. RR EVEN AND UNLAOBRED. BUMEX DRIP AT 5ML/HR. WILL GIVE REPORT ON PT CONDITION FOR THE DAY.
[2017-09-15 21:30] VITALS: BP 103/43
--- NOTE | 2017-09-16 01:48 | NUR ---
PT IN BED WITH HOB UP FOR COMFORT. EYES CLOSED. CHEST RISING AND FALLING. FSBS ACHS. TELEMETRY. ELECTROLYTE PROTOCOL. MAGDALENO. O2 @ 3L VIA NC. RIGHT AC BUMEX DRIP @ 5ML/HR. BED IN LOWEST POSITION AND CALL LIGHT WITHIN REACH.
[2017-09-16 02:05] VITALS: BP 111/50
[2017-09-16 06:26] LABS: ANION GAP 15.9 mmol/L (8-16); CALCIUM 8.1 mg/dL (8.5-10.1); CARBON DIOXIDE 23.9 mmol/L (21.0-32.0); CREATININE - SERUM 1.9 mg/dL (0.6-1.3); POTASSIUM - SERUM 4.8 mmol/L (3.5-5.1)
--- NOTE | 2017-09-16 07:00 | NUR ---
RECEIVED REPORT. ASSUMED CARE OF PATIENT. RESTING IN BED WITH EYES OPEN. BUMEX DRIP INFUSING AT 5ML/HR. CALL LIGHT WITH IN REACH. NO DISTRESS.
[2017-09-16 07:26] LABS: BASOPHILS 0.1 % (0-2); EOSINOPHILS 0.6 % (0-7); HEMATOCRIT 27.4 % (36.0-48.0); HEMOGLOBIN 9.2 g/dL (12-16); IMMATURE GRANULOCYTES 0.5 % (0-5); MCH 31.4 pg (26.0-34.0); MCHC 33.6 g/dL (31.0-37.0); MCV 93.5 fL (80.0-100.0); MONOCYTES 8.6 % (2-11); NEUTROPHILS 81.2 % (40-80); PLATELET COUNT 83 10x3/uL (130-400); RBC 2.93 10x6/uL (4.00-5.40); RDW 20.9 % (11.5-14.5); WBC 7.8 10x3/uL (4.8-10.8)
[2017-09-16 08:00] VITALS: BP 130/60
--- NOTE | 2017-09-16 09:35 | NUR ---
MEDICATED FOR PAIN AT THIS TIME. BUMEX DRIP INCREASED TO 10ML /HR PER . CALL LIGHT WITHIN REACH. PATIENTS SPOUSE AT BEDSIDE. NO DISTRESS.
--- NOTE | 2017-09-16 11:38 | NUR ---
Patient Name: INDIA ELLIS Encounter No: [id number] : 1945 Primary Insurance: MEDICARE A & B Anticipated DC Date: 09-16-2017 Planned Disposition: INPATIENT REHAB External Planned Provider: [facility] INPATIENT RE[facility] DCP follow-up note: CM SPOKE TO VASU BERRY WHO REPORTS SPEAKING TO PT'S SPOUSE WHO IS IN AGREEMENT WITH INPATIENT REHAB LONG INSURANCE COVERS THE COSTS OF REHAB. CM REVIEWED FINANCIAL INFORMATION, PT HAS MEDICARE WITH SECONDARY COVERAGE, SHOULD COVER COSTS OF REHAB SERVICES IN INPATIENT REHAB UNIT. CM MET WITH PT IN ROOM, DISCUSSED REHAB OPTIONS. PT REPORTS SHE HAS BEEN THERE BEFORE AND THAT HER AND DOCTOR MENTIONED IT TO HER. CM ASKED PT IF SHE WANTS INPATIENT REHAB, PT AGREEABLE IF COVERED BY INSURANCE. IMPORTANT MESSAGE FROM MEDICARE PROVIDED AND EXPLAINED, PT REPORTS INABILITY TO SIGN, EVEN SHE HOLDS A CUP OF ICE IN ONE HAND AND IS EATING ICE CHIPS FROM THE CUP USING THE OTHER HAND. CM WAITING ON INPATIENT REHAB PRESCREENING COMPLETION AND ADMISSION DETERMINATION. Gabo Freedman, CASE MANAGEMENT
--- NOTE | 2017-09-16 11:47 | NUR ---
FSBS 191. 2 UNITS HUMALOG ADMINISTERED PER SLIDING SCALE. RESTING WITH EYES CLOSED. NO DISTRESS.
[2017-09-16 12:00] VITALS: BP 126/50
--- NOTE | 2017-09-16 12:48 | NUR ---
IV INFILTRATED. KHUSHBOO, VASCULAR ACCESS NURSE CALLED AND SHE STATED SHE WOULD STOP BY AND PLACE IV AFTER SHE PLACES A MIDLINE. THANKED KHUSHBOO.
--- NOTE | 2017-09-16 13:43 | NUR ---
VASCULAR NURSE ABLE TO PLACE 22 GAUGE TO LEFT THUMB. GOOD BLOOD RETURN, EASY FLUSH. TAPED, DATED AND SECURED, TOLERATED IV PLACEMENT WELL. NO DISTRESS.
--- NOTE | 2017-09-16 13:44 | NUR ---
PHARMACY DOES NOT HAVE ANY BUMEX. SPOKE WITH MOHIT. WAITING FOR PHARMACY TO RECEIVE BUMEX AT THIS TIME. BUMEX IS UNAVAILABLE AND IS UNABLE TO BE ADMINISTERED.
--- NOTE | 2017-09-16 15:37 | NUR ---
Rehab Prescreening Consult recieved and the chart has been reviewed. She has a rehab qualifying diagnosis when off the Bumex drip, however she was evaluated by PT on and has refused PT everytime since that date. To qualify for IRF she must be willing and able to participate in 3 hrs of therapy a day. Discussed with the CM Derrell Freedman. Suzie Green RN Clinical Liaison, Rehab
--- NOTE | 2017-09-16 16:30 | NUR ---
FSBS 193. 2 UNITS HUMALOG ADMINISTERED PER SLIDING SCALE.
--- NOTE | 2017-09-16 17:00 | NUR ---
Patient Name: INDIA ELLIS Encounter No: [id number] : 1945 Primary Insurance: MEDICARE A & B Anticipated DC Date: 09-16-2017 Planned Disposition: Inpatient Rehab External Planned Provider: [facility] INPATIENT REHAB DCP follow-up note: CM RECEIVED CALL FROM AKANKSHA OF [facility] INPATIENT REHAB WHO REPORTS THAT PT HAS BEEN REFUSING THERAPY SESSIONS. CM SPOKE TO PT IN ROOM, ENCOURAGED PT TO PARTICIPATE IN EACH THERAPY SESSION THE BEST THAT SHE CAN; PT REPORTS THAT SHE REFUSED BECAUSE SHE HAD A HEADACHE. CM ADVISED PT THAT IF SHE WANTS TO GET INTO INPATIENT OR ASSISTED FACILITY REHAB, AND FOR INSURANCE TO PAY, SHE WILL NEED TO TRY TO PARTICIPATE IN EACH THERAPY SESSION AND NEEDS TO BE WILLING TO PARTICIPATE IN REHAB SERVICES FOR THREE OR MORE HOURS A DAY TO GO TO INPATIENT REAHB . IF UNWILLING OR UNABLE INSURANCE WILL NOT COVER REHAB SERVICES NOR WILL REHAB ACCEPT PT. PT STATES UNDERSTANDING. CM WILL BE MONITORING FOR PT'S PARTICIPATION WITH THERAPY SESSIONS AND INPATIENT ADMISSION DETERMINATION. Gabo Freedman, CASE MANAGEMENT
[2017-09-16 17:10] VITALS: BP 119/62
--- NOTE | 2017-09-16 17:15 | NUR ---
DRESSING CHANGES COMPLETE TO LEFT LEG, RIGHT LEG, RIGHT FOOT, AND LEFT HAND/WRIST AREA. TOLERATED DRESSING CHANGES WELL.
--- NOTE | 2017-09-16 19:27 | NUR ---
REPORT GIVEN TO ONCOMING NURSE. NO DISTRESS.
[2017-09-16 20:33] VITALS: BP 100/58
--- NOTE | 2017-09-17 00:02 | NUR ---
HAND FOLDER AT BED SIDE TO OBTAIN VITALS, WILL CONT TO MONITOR.
[2017-09-17 04:39] VITALS: BP 123/57
[2017-09-17 06:00] LABS: BASOPHILS 0.1 % (0-2); EOSINOPHILS 0 % (0-7); HEMATOCRIT 26.5 % (36.0-48.0); HEMOGLOBIN 8.9 g/dL (12-16); IMMATURE GRANULOCYTES 0.4 % (0-5); LYMPHOCYTES 5.6 % (15-50); MCH 31.1 pg (26.0-34.0); MCHC 33.6 g/dL (31.0-37.0); MCV 92.7 fL (80.0-100.0); MONOCYTES 6.8 % (2-11); NEUTROPHILS 87.1 % (40-80); PLATELET COUNT 68 10x3/uL (130-400); RBC 2.86 10x6/uL (4.00-5.40); WBC 7.9 10x3/uL (4.8-10.8)
[2017-09-17 06:20] LABS: CALCIUM 8.3 mg/dL (8.5-10.1); CARBON DIOXIDE 28.1 mmol/L (21.0-32.0); CREATININE - SERUM 1.9 mg/dL (0.6-1.3); POTASSIUM - SERUM 4.1 mmol/L (3.5-5.1)
[2017-09-17 08:24] VITALS: BP 115/52
[2017-09-17 11:55] VITALS: BP 103/30
--- NOTE | 2017-09-17 12:13 | NUR ---
Visited with the patient today regarding the IRF referral we recieved yesterday. She has not been participating with therapy and has refused for the past several days. I explained the criteria for acute rehab and she says she has been here and understands. She says she has walked to and from the bathroom with nursing, but has not walked with PT due to pain. She lives with her and needs to be able to perform her ADL's and ambulate with a walker before going home. She says she is motivated to regain her strength and will try to do better. Presently she is on a Bumex drip and that needs to be dc'd prior to rehab. Rehab will continue to follow and see if she can progress with therapy in order to be able to participate in 3 hrs of therapy 5 days a week. Discussed with the CM Derrell Freedman. Suzie Green RN CL
[2017-09-17 15:27] VITALS: BP 110/54
--- NOTE | 2017-09-17 17:55 | NUR ---
OT NOTE: PT COMPLETED HYGIENE AND GROOMING TASKS WITH MIN A. PT REQUIRES CUES FOR SEQUENCING AND TASK COMPLETION. PT COMPLETED KATARINA STONE/MAURO AXS FOR INCREASED COORDINATION WITH FX TASKS. THANK YOU, MONA BLUE/Lulú
[2017-09-17 20:00] VITALS: BP 118/52
--- NOTE | 2017-09-17 20:12 | NUR ---
RESUMED CARE OF PT, LYING IN BED WITH EYES CLOSED RESPIRATIONS EVEN AND UNLABORED ON 3LPM VIA NC. 86 SR WITH BBB ON TELEMETRY. RIGHT THUMB SALINE LOCKED. MAGDALENO TO GRAVITY. SEE NURSE ASSESSMENT. WILL CONTINUE TO MONITOR.
[2017-09-18] VITALS: BP 120/35
[2017-09-18 04:00] VITALS: BP 121/55
--- NOTE | 2017-09-18 05:32 | NUR ---
BREWMASTER AT BEDSIDE TO OBTAIN VITALS, WILL CONTINUE WITH PLAN OF CARE. CALL LIGHT IN REACH.
[2017-09-18 05:35] LABS: BASOPHILS 0.2 % (0-2); EOSINOPHILS 1.1 % (0-7); HEMATOCRIT 25.8 % (36.0-48.0); HEMOGLOBIN 8.7 g/dL (12-16); IMMATURE GRANULOCYTES 0.7 % (0-5); LYMPHOCYTES 7.1 % (15-50); MCH 31.1 pg (26.0-34.0); MCHC 33.7 g/dL (31.0-37.0); MCV 92.1 fL (80.0-100.0); MONOCYTES 11.2 % (2-11); NEUTROPHILS 79.7 % (40-80); PLATELET COUNT 81 10x3/uL (130-400); RDW 20.6 % (11.5-14.5); WBC 6.1 10x3/uL (4.8-10.8)
[2017-09-18 05:50] LABS: ANION GAP 11.5 mmol/L (8-16); CALCIUM 8.3 mg/dL (8.5-10.1); CARBON DIOXIDE 29.3 mmol/L (21.0-32.0); CREATININE - SERUM 1.9 mg/dL (0.6-1.3); POTASSIUM - SERUM 3.8 mmol/L (3.5-5.1)
[2017-09-18 08:54] VITALS: BP 118/55
[2017-09-18] MEDS ORDERED: PROCRIT/EP4000 UNITS SC (10:41)
[2017-09-18] MEDS ORDERED: QUESTRAN PACK4 G/PKT PO (10:42)
[2017-09-18] MEDS ORDERED: Zaroxolyn PO (10:42)
[2017-09-18] MEDS ORDERED: BUMEX2 MG PO (10:42)
[2017-09-18] MEDS ORDERED: LOPERAMIDE HCL2 MG PO (10:43)
[2017-09-18] MEDS ORDERED: FLORANEX / LACT1 TAB PO (10:43)
[2017-09-18] MEDS ORDERED: SANTYL30 GM TOPICAL (10:44)
[2017-09-18] MEDS ORDERED: Triple Antibiotic Oi TOPICAL (10:44)
[2017-09-18] MEDS ORDERED: SYNTHROID25 MCG PO (10:44)
[2017-09-18] MEDS ORDERED: CALMOSEPTINE OI71 GM TOPICAL (10:44)
[2017-09-18] MEDS ORDERED: LIDODERM 5 %1 PATCH TRANSDERM (10:45)
--- NOTE | 2017-09-18 11:00 | NUR ---
ALERT AND ORIENTED X4. PHYSICAL THERAPY ASSIST TO CHAIR. CRIES OUT "I DON'T WANT TO." ENCOURAGE TO SIT UP IN CHAIR FOR LUNCH. DENIES SOB. DENIES ANY NEEDS. CHAIR LOCKED. CALL LIGHT IN REACH. SINUS RHTHYM 89bpm ON TELEMETRY.
--- NOTE | 2017-09-18 11:15 | NUR ---
Patient Name: INDIA ELLIS Encounter No: [id number] : 1945 Primary Insurance: MEDICARE A & B Anticipated DC Date: 09-18-2017 Planned Disposition: Inpatient Rehab External Planned Provider: [facility] DCP follow-up note: CM SPOKE TO AKANKSHA OF INPATIENT REHAB, THEY PLAN TO ACCEPT PT FOR REHAB. PT NOTIFIED, IN AGREEMENT WITH DISCHARGE TO INPATIENT REHAB. VASU BERRY NOTIFIED, DISCHARGE ORDERS RECEIVED. [facility] IN[facility] TO CONTACT MED 2 NURSE WITH ROOM NUMBER WHEN READY TO ACCEPT PT AND NURSE REPORT. RAPHAEL RODRÍGUEZ, CASE MANAGEMENT
--- NOTE | 2017-09-18 11:54 | NUR ---
OT NOTE: REQUIRED MUCH ENCOURAGEMENT TODAY. BED MOB WITH MIN/MOD ASSIST; STATIC SITTING ON EDGE OF BED WIHT MIN ASSIST; REQUIRED MOD CUES FOR STANDING WITH WALKER. ABLE TO TAKE SEVERAL STEPS AND BEGAN CRYING THAT HER LEGS WERE " GIVING OUT" ALLOWED PT TO SIT AND THEN TRIED AGAIN. 3 ATTEMPTS MADE, FINALLY PT ABLE TO GET TO CHAIR. INSTRUCTED TO SIT UP AT LEAST AN HOUR. ASSISTED PT WITH DENTURES. SHE WAS ABLE TO WASH FACE AND HANDS. MOD ASSIST WITH DONNING GOWN.
[2017-09-18 12:55] VITALS: BP 103/46
--- NOTE | 2017-09-18 13:20 | NUR ---
Nutrition Follow Up: Pt stated that her appetite was decreased. She said that she is drinking Ensure. Pt is eating 33% meal avg on an AHA diet. Wt stable. +BM 09/14/17. Labs reviewed. Meds noted including Bumex, Remeron. Rec consider liberalizing diet to encourage po intake. RD following.
--- NOTE | 2017-09-18 16:00 | NUR ---
ALERT AND ORIENTED X4. RESTING IN BED. CALL REHAB FOR ROOM NUMBER. NO BED AVAILABLE AT THIS TIME. OCCUPATIONAL THERAPY IN ROOM. DENIES ANY NEEDS. BED LOCKED AND LOW. CALL LIGHT IN REACH. TWO SIDERAILS UP. SINUS RHTHYM ON TELEMETRY.
[2017-09-18 16:01] VITALS: BP 103/60
--- NOTE | 2017-09-18 17:29 | NUR ---
OT NOTE: PT COMPLETED BUE POSITIONING AND AAROM TO DECREASE RISK OF SKIN BREAKDOWN. THANK YOU, MONA BLUE/Lulú
--- NOTE | 2017-09-18 18:52 | NUR ---
ALERT AND ORIENTED X4. REHAB ROOM # 7026B. REPORT CALLED TO [facility]. DISCHARGE PAPERS SIGNED ON CHART. DC LT THUMB IV TIP INTACT. MAGDALENO DRAINING AT BEDSIDE. TRANSPORT TO REHAB VIA WHEELCHAIR. REMAINS FREE FROM INJURY.
== END 2017-09-18 18:54 | DRG 682 ==
LOC: D.ER 16:40 → OBSVTIME 21:11 → D.M2 21:11
PROVIDERS: Emergency Medicine; Internal Medicine; Internal Medicine Nephrology; ADMIT Family Medicine
DX: N17.9 Acute kidney failure, unspecified (principal); I50.23 Acute on chronic systolic (congestive) heart failure; I13.0 Hypertensive heart and chronic kidney disease with heart failure and stage 1 through stage 4 chronic kidney disease, or unspecified chronic kidney disease; E87.1 Hypo-osmolality and hyponatremia; N18.4 Chronic kidney disease, stage 4 (severe); E11.22 Type 2 diabetes mellitus with diabetic chronic kidney disease; E11.65 Type 2 diabetes mellitus with hyperglycemia; D63.1 Anemia in chronic kidney disease; D69.6 Thrombocytopenia, unspecified; Z86.73 Personal history of transient ischemic attack (TIA), and cerebral infarction without residual deficits; I48.91 Unspecified atrial fibrillation; I08.1 Rheumatic disorders of both mitral and tricuspid valves

== ENCOUNTER 2017-09-18 19:40 | Inpatient (IN) | payer MEDICARE, OTHER ==
[~2017-09-18] VITALS: Ht 165.1 cm; Wt 82.6 kg
[~2017-09-18 19:40] MED LIST changes: +BACTRIM DS TABL1 TAB PO; +CALMOSEPTINE OI71 GM TOPICAL; +LIDODERM 5 %1 PATCH TRANSDERM; +LOPERAMIDE HCL2 MG PO; +PROCRIT/EP4000 UNITS SC; +QUESTRAN PACK4 G/PKT PO; +SANTYL30 GM TOPICAL; +TRAZODONE HCL50 MG PO; +Triple Antibiotic Oi TOPICAL; +Zaroxolyn PO
[2017-09-19 00:33] VITALS: BMI 30.3
[2017-09-19 05:47] LABS: BASOPHILS 0.1 % (0-2); EOSINOPHILS 0.1 % (0-7); HEMATOCRIT 26.9 % (36.0-48.0); IMMATURE GRANULOCYTES 0.5 % (0-5); LYMPHOCYTES 6.1 % (15-50); MCH 30.5 pg (26.0-34.0); MCHC 33.5 g/dL (31.0-37.0); MCV 91.2 fL (80.0-100.0); MONOCYTES 8.2 % (2-11); PLATELET COUNT 87 10x3/uL (130-400); RBC 2.95 10x6/uL (4.00-5.40); RDW 20.8 % (11.5-14.5)
[2017-09-19 05:51] LABS: WBC 9.3 10x3/uL (4.8-10.8)
[2017-09-19 06:12] LABS: ANION GAP 14.1 mmol/L (8-16); CALCIUM 8.3 mg/dL (8.5-10.1); CARBON DIOXIDE 28.2 mmol/L (21.0-32.0); CREATININE - SERUM 2.1 mg/dL (0.6-1.3); POTASSIUM - SERUM 3.3 mmol/L (3.5-5.1)
[2017-09-19 08:41] VITALS: BP 116/46
[2017-09-19 12:23] VITALS: Ht 165.1 cm; Wt 82.6 kg
[2017-09-19 20:53] VITALS: BP 131/59
[2017-09-20 10:28] VITALS: BP 112/49
[2017-09-20 20:15] VITALS: BP 118/49
[2017-09-21 06:34] LABS: ALBUMIN 2.1 g/dL (3.4-5.0); ANION GAP 13.1 mmol/L (8-16); CALCIUM 8.1 mg/dL (8.5-10.1); CARBON DIOXIDE 29.1 mmol/L (21.0-32.0); CREATININE - SERUM 2.3 mg/dL (0.6-1.3); PHOSPHOROUS 3.8 mg/dL (2.5-4.9); POTASSIUM - SERUM 3.2 mmol/L (3.5-5.1)
[2017-09-21 09:05] VITALS: BP 119/47
[2017-09-21 20:15] VITALS: BP 118/55
[2017-09-22 06:16] LABS: BASOPHILS 0.1 % (0-2); EOSINOPHILS 0.4 % (0-7); HEMATOCRIT 24.8 % (36.0-48.0); HEMOGLOBIN 8.4 g/dL (12-16); IMMATURE GRANULOCYTES 0.9 % (0-5); LYMPHOCYTES 6.2 % (15-50); MCH 30.5 pg (26.0-34.0); MCHC 33.9 g/dL (31.0-37.0); MCV 90.2 fL (80.0-100.0); MONOCYTES 5.8 % (2-11); NEUTROPHILS 86.6 % (40-80); PLATELET COUNT 98 10x3/uL (130-400); RBC 2.75 10x6/uL (4.00-5.40); RDW 20.8 % (11.5-14.5); WBC 9.8 10x3/uL (4.8-10.8)
[2017-09-22 06:26] LABS: ANION GAP 11.6 mmol/L (8-16); CARBON DIOXIDE 29.6 mmol/L (21.0-32.0); CREATININE - SERUM 2.4 mg/dL (0.6-1.3); POTASSIUM - SERUM 3.2 mmol/L (3.5-5.1)
[2017-09-22 09:28] VITALS: BP 113/49
--- NOTE | 2017-09-22 12:07 | RHP ---
PATIENT: INDIA ELLIS MEDICAL RECORD: [id number] ACCOUNT: [id number] LOCATION:[facility]1118 : [birth year] ADMISSION DATE: 09/18/17 REHABILITATION HISTORY AND PHYSICAL EXAMINATION POST ADMISSION PHYSICIAN EXAMINATION Post-Admission Physical Examination and History and Physical ADMITTING DIAGNOSES: CHF induced myelopathy. 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 She has had multiple ongoing medical problems including hypertension, diabetes, CVA, neuropathy, chronic kidney disease, thrombocytopenia, anemia of chronic disease. Dr. Gonsalez is her soaking tank worker, Dr. Mcclendon is her professor of biblical studies. She has chronic hyponatremia and a history of DVT about 3 years ago, but is not on anticoagulation. She has got chronic lower extremity wounds of her lower legs. She is admitted into hospital from the ER presenting with a 6-pound overnight weight gain, shortness of breath, dyspnea on exertion, anasarca, wounds to her lower legs, atrial fibrillation, anemia, and feelings of fatigue and exhaustion. Chest x-ray showed congestive heart failure and associated bilateral pleural effusions. She has had decreased breath sounds bilaterally, Lovenox is contraindicated for deep venous thrombosis prophylaxis for her due to thrombocytopenia and anemia. She has had serial compression devices are contraindicated also secondary to wounds on lower extremity. She was diuresed on Bumex drip per minute. She was moderately independent with a cane for ADLs and mobility. She wears O2 at 2 liters at home. Currently, she is on continuous O2 at 3 liters titrating to keep her sats above 90%. Creatinine is stable at 1.7 with a baseline of 2.0, IV Bumex has been changed to p.o., anemias increasing on subcutaneous Epogen 3 times weekly, her atrial fibrillation was converted to normal sinus rhythm with bundle branch block on p.o. Coreg and digoxin. Her hyponatremia has improved since being off the Bumex drip. She remains weak and fatigues easily with exertion. She is proximal muscle weakness, lower extremity weakness, poor balance, and difficulty going from sit to stand or from rising from bed to chair. She would like to go back home after her discharge from here hopefully and get back to her prior level of functioning or better if possible. COMORBIDITIES: In this patient include hypothyroidism, diabetes, hypertension, exacerbation of CHF, dyspnea, acute renal failure on chronic kidney disease, atrial fibrillation, coronary artery disease status post coronary artery bypass grafting and stent, cardiomyopathy, severe left ventricular dysfunction with an ejection fraction of 20% to 25%, moderate mitral regurgitation, severe triscuspid regurgitation, dyspnea on exertion, hyponatremia, thrombocytopenia, lower extremity edema with wounds, history of DVT, COPD, hyperlipidemia, fatigue, and falls. PAST MEDICAL HISTORY: Significant for CVA, neuropathy, numbness, weakness. She got a history of cataracts, got a history of diabetes, got a history of OR and hypertension, edema, heart murmur, coronary artery disease, and peripheral vascular disease. PAST SURGICAL HISTORY: Includes gallbladder surgery, cataract surgery, tonsillectomy, carotid endarterectomy of fem-pop, coronary artery bypass grafting and stent placement. HISTORY AND PHYSICAL [id number] INDIA ELLIS ALLERGIES: ASPIRIN, FLU VACCINE, CEPHALOSPORINS, SULFA, THIAZIDE, TYLENOL, HONEY BEES, CODEINE, HYDROCODONE, METHADONE, METOLAZONE, PENICILLIN, AND ANY TYPE OF SEA FOOD. CURRENT MEDICATIONS: Include potassium chloride 20 mEq b.i.d.; polyethylene glycol 17 grams in 8 ounce of water daily; Bumex 4 mg b.i.d.; Zaroxolyn 5 mg daily; Neosporin ointment; Lidoderm patch that she applies as needed; Synthroid 50 mcg daily; Procrit 40,000 units Friday, Friday, and Friday; digoxin 0.25 mg daily; Protonix 40 mg daily; B12 500 mcg daily; Santyl ointment applied to her lower extremities; Coreg 25 mg b.i.d. with meals, Os-Swapnil with D daily. She is on intermittent resistant sliding scale with Humalog, tramadol 50 mg q.6 hours, saline nasal spray b.i.d., Pravachol 20 mg at bedtime, Remeron 15 mg at bedtime, Calmoseptine 1 application b.i.d., Mag-Ox 400 mg b.i.d., Imodium 2 mg t.i.d. p.r.n., Lactinex daily. She is on Lantus 40 units at bedtime, Benadryl 25 mg at bedtime, Flexeril 10 mg t.i.d. p.r.n., and cholestyramine packet t.i.d. p.r.n. HABITS: No alcohol or tobacco use. FAMILY HISTORY: Noncontributory. SOCIAL HISTORY: The patient hopes to return back home and get back to her prior level of function and better if possible. REVIEW OF SYSTEMS: GENERAL: Does complain of weakness. HEENT: She denies cold, cough, or congestion. CARDIOVASCULAR: Denies any chest pain. LUNGS: Does complain of shortness of breath. PHYSICAL EXAMINATION: VITAL SIGNS: Stable, afebrile. GENERAL: A somewhat obese female in no acute distress, alert upon exam. HEENT: Normocephalic and atraumatic. Mucosa moist. NECK: Supple, with no lymphadenopathy. LUNGS: Clear in upper dhaliwal at this time. HEART: Regular rate and rhythm. ABDOMEN: Benign. EXTREMITIES: She does have changes consistent with venous stasis and also some redness and wounds to her lower extremities. NEUROLOGIC: Seems intact. LABORATORY DATA: Her white count is 9.3, H&H of 9 and 26.9, and platelet count is 87. Her sodium is 127, potassium 3.3, BUN and creatinine of 82 and 2.1, and blood sugar is noted to be 73. 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 The patient has potential to make improvement. We instituted the following multidisciplinary therapies including to, but not limited to physical, occupational, respiratory, speech, nutritional services, prosthetics, and orthotics. Given her complex condition and risk for more complications, rehabilitation services cannot be provided at a low level of care such as a [facility] facility. HISTORY AND PHYSICAL [id number] INDIA ELLIS PLAN: 1. Admit to [facility] rehab for intensive inpatient therapy to include the following disciplines: A. Physical therapy to improve gait, all transfer skills and bed mobility to a modified independent level. B. Occupational therapy to improve activities of daily living to a modified independent level. C. Case management to assist with discharge planning and placement options. D. Nutrition to assist with nutritional needs. E. Rehabilitation nursing to assist in monitoring the patient's underlying medical conditions and to assist with any type of bowel or bladder management. 2. The patient's current medication and medical care will be continued. 3. The patient will be placed on standard fall precautions. 4. We will appreciate nephrology following us along with this patient to manage her electrolytes. 5. Discuss this patient during care team staff meeting in the next week and also with her care team on Friday. TRANSINT:[id number] Voice Confirmation ID: [id number] DOCUMENT ID: [id number] MICAH notes whether there has been none or any medical/functional change since admission: - NO CHANGE SINCE PRESCREEN. MICAH attests patient continues to be appropriate for IRF: - CONTINUES TO BE APPROPRIATE. CHAGO NAIR MD at 1207 CC: [id number] DICTATION DATE: 09/19/17 0835 VELVET STEAMER: 09/19/17 1037 ADM IN [place] [id number] [place] [address]
[2017-09-22 22:57] VITALS: BP 162/71
[2017-09-23 12:36] LABS: BASOPHILS 0.1 % (0-2); EOSINOPHILS 0.1 % (0-7); HEMATOCRIT 26.8 % (36.0-48.0); IMMATURE GRANULOCYTES 1.3 % (0-5); LYMPHOCYTES 3.6 % (15-50); MCH 30.6 pg (26.0-34.0); MCHC 33.6 g/dL (31.0-37.0); MCV 91.2 fL (80.0-100.0); MONOCYTES 4.5 % (2-11); NEUTROPHILS 90.4 % (40-80); PLATELET COUNT 115 10x3/uL (130-400); RBC 2.94 10x6/uL (4.00-5.40)
[2017-09-23 12:38] LABS: WBC 14.3 10x3/uL (4.8-10.8)
[2017-09-23 12:49] LABS: ANION GAP 14.4 mmol/L (8-16); CALCIUM 7.8 mg/dL (8.5-10.1); CARBON DIOXIDE 27.6 mmol/L (21.0-32.0); CREATININE - SERUM 2.2 mg/dL (0.6-1.3)
[2017-09-23 13:44] VITALS: BP 142/56
[2017-09-23 20:00] VITALS: BP 113/45
[2017-09-24 06:13] LABS: BASOPHILS 0.1 % (0-2); EOSINOPHILS 0.2 % (0-7); HEMATOCRIT 25.3 % (36.0-48.0); HEMOGLOBIN 8.5 g/dL (12-16); LYMPHOCYTES 3.6 % (15-50); MCH 30.2 pg (26.0-34.0); MCHC 33.6 g/dL (31.0-37.0); MONOCYTES 4.2 % (2-11); NEUTROPHILS 90.9 % (40-80); PLATELET COUNT 121 10x3/uL (130-400); RBC 2.81 10x6/uL (4.00-5.40); RDW 20.7 % (11.5-14.5); WBC 12.5 10x3/uL (4.8-10.8)
[2017-09-24 06:35] LABS: ANION GAP 14.4 mmol/L (8-16); CALCIUM 7.9 mg/dL (8.5-10.1); CARBON DIOXIDE 27.2 mmol/L (21.0-32.0); CREATININE - SERUM 2.2 mg/dL (0.6-1.3); POTASSIUM - SERUM 3.6 mmol/L (3.5-5.1)
[2017-09-24 08:19] VITALS: BP 127/42
[2017-09-24] MEDS ORDERED: LANOXIN250 MCG PO (17:21)
--- NOTE | 2017-11-01 13:26 | DS ---
PATIENT:INDIA ELLIS :47 MEDICAL RECORD: [id number] DISCHARGE SUMMARY ADMISSION DATE: 09/18/17 DISCHARGE DATE: 09/24/17 DATE OF DISCHARGE: 09/24/2017 from inpatient rehab. PRIMARY DIAGNOSES: Decreased functional ability and ability to provide activities of daily living secondary to congestive heart failure, myopathy. SECONDARY DIAGNOSES: 1. Odbks-jl-lecffdi hypoxic respiratory failure. 2. Ramtn-ij-gybhthu renal insufficiency/chronic kidney disease. 3. Neuropathy. 4. Diabetes. 5. Hypertension. 6. Thrombocytopenia. 7. Anemia of chronic disease. 8. Chronic hyponatremia. 9. Chronic lower extremity wounds. 10. Atrial fibrillation. 11. Hypothyroidism. 12. Coronary artery disease. 13. Hyperlipidemia. 14. Frequent falls. 15. Peripheral vascular disease. 16. Anasarca. 17. Syndrome of inappropriate of antidiuretic hormone. 18. Hypokalemia. CONSULTANTS FOLLOWING THIS HOSPITALIZATION: Nephrology with Dr. Reyes. HOSPITAL COURSE: Full H&P is located elsewhere on the chart on this 72-year-old female, who was admitted to inpatient rehab for physical therapy and occupational therapy to improve gait, transfer skills, bed mobility, and activities of daily living to a modified independent level. She was evaluated by PT and OT and their plans of care were followed. She required mcc care for observation and assessment, medication administration, as well as wound care. Fingerstick blood sugars were monitored throughout her hospital stay with appropriate adjustment in medications as needed. Electrolytes were managed by protocol. She remained on supplemental oxygen to keep oxygen saturations greater than 90%. She was on a fluid restriction and intermittent diuresis. She was followed by nephrology during this hospital stay. She was cooperative with therapies initially with some progress towards goals. She had intermittent periods of decreased responsiveness, was extremely weak and somewhat lethargic. It was elected to transfer back to the acute care setting for higher level of care on 09/24/2017. DISCHARGE MEDICATIONS: As per discharge medication reconciliation. DISCHARGE DISPOSITION: The patient is discharged to the acute hospital for further evaluation. Consultants and primary care will follow her in the acute hospital. She will continue her current diet and level of activity. At least 30 minutes was spent in this discharge activity. DISCHARGE SUMMARY REPORT [id number] INDIA ELLIS CORRINE TRANSINT:[id number] Voice Confirmation ID: [id number] DOCUMENT ID: [id number] Dictated By: JUAN DAVID BRYANT I have interviewed/examined the above patient and agree with these documented findings. CHAGO NAIR MD at 1327 at 1326 CC: [id number] DICTATION DATE: 11/01/17 1000 PAPER MACHINE BACK TENDER: 11/01/17 1314 DIS IN 09/24/17 [facility] [id number] [place] [address]
== END 2017-09-24 15:50 | disposition short-term general hospital (02) | DRG 92 ==
LOC: D.REHAB 19:40
PROVIDERS: Internal Medicine; Internal Medicine Nephrology; ADMIT Emergency Medicine
DX: G72.89 Other specified myopathies (principal); I13.0 Hypertensive heart and chronic kidney disease with heart failure and stage 1 through stage 4 chronic kidney disease, or unspecified chronic kidney disease; N17.9 Acute kidney failure, unspecified; I42.9 Cardiomyopathy, unspecified; E87.1 Hypo-osmolality and hyponatremia; E03.9 Hypothyroidism, unspecified; E11.22 Type 2 diabetes mellitus with diabetic chronic kidney disease; N18.9 Chronic kidney disease, unspecified; I25.10 Atherosclerotic heart disease of native coronary artery without angina pectoris; R41.82 Altered mental status, unspecified; R06.00 Dyspnea, unspecified; I48.91 Unspecified atrial fibrillation; I34.0 Nonrheumatic mitral (valve) insufficiency; I07.1 Rheumatic tricuspid insufficiency; D69.6 Thrombocytopenia, unspecified; R60.9 Edema, unspecified; J44.9 Chronic obstructive pulmonary disease, unspecified; E78.5 Hyperlipidemia, unspecified; R53.83 Other fatigue

== ENCOUNTER 2017-09-24 16:24 | Inpatient (IN) | payer MEDICARE, OTHER ==
[~2017-09-24] VITALS: Ht 165.1 cm; Wt 79.6 kg
--- NOTE | 2017-09-24 16:27 | NUR ---
RECEIVED PT TO ROOM 2102 VIA BED, PT LETHARGIC WILL NOT OPEN EYES ONLY MOANS. PT UNABLE TO GIVE ANY INFORMATION OR ANSWER ANY QUESTIONS. NO FAMILY AT BEDSIDE. BED LOW AND WHEELS LOCKED, BEDSIDE RAILS X2, CALL LIGHT IN REACH, NAD NOTED, WILL CONTINUE TO MONITOR.
[2017-09-24] MEDS ORDERED: LANOXIN250 MCG PO (17:21)
--- NOTE | 2017-09-24 17:51 | NUR ---
ADMINISTERED ULTRAM FOR PAIN LEVEL OF 10/10. PT UNABLE TO TELL WHERE SHE IS HURTING BUT IS SCREAMING OUT, AND MOANING. HELPED EDITORIAL PROJECT MANAGER TO CLEAN PT UP FROM INCONT EPISODE AND REPOSITIONED PT IN BED, TURNED TO RT SIDE. CALL LIGHT IN REACH,NAD NOTED. WILL CONTINUE PLAN OF CARE.
[2017-09-24 18:50] LABS: BASOPHILS 0.1 % (0-2); EOSINOPHILS 0.2 % (0-7); HEMOGLOBIN 8.3 g/dL (12-16); IMMATURE GRANULOCYTES 1.4 % (0-5); LYMPHOCYTES 4.9 % (15-50); MCH 30.4 pg (26.0-34.0); MCHC 33.2 g/dL (31.0-37.0); MCV 91.6 fL (80.0-100.0); MONOCYTES 4.8 % (2-11); NEUTROPHILS 88.6 % (40-80); PLATELET COUNT 115 10x3/uL (130-400); RBC 2.73 10x6/uL (4.00-5.40); WBC 12.2 10x3/uL (4.8-10.8)
[2017-09-24 19:11] LABS: ALBUMIN 1.9 g/dL (3.4-5.0); ANION GAP 14.7 mmol/L (8-16); BILIRUBIN - TOTAL 2.98 mg/dL (0.2-1.3); CALCIUM 7.7 mg/dL (8.5-10.1); CARBON DIOXIDE 27.1 mmol/L (21.0-32.0); CREATININE - SERUM 2.3 mg/dL (0.6-1.3); POTASSIUM - SERUM 3.8 mmol/L (3.5-5.1); PROTEIN - SERUM 6.1 g/dL (6.4-8.2); THYROID STIMULATING HORMONE 2.32 uIU/mL (0.36-3.74)
[2017-09-24 21:12] VITALS: BP 120/44
--- NOTE | 2017-09-24 21:53 | NUR ---
PATIENT IS UNRESPONSIVE AND MOANING IN PAIN. SHE IS ABLE TO TAKE PILLS, AND DRINK HER TEA. SHE MUST BE SITTING UP IN ORDER TO TAKE HER MEDICATIONS.SHE IS ABLE TO RATE HER PAIN, SHE REPORTS PAIN IN HER BACK AN 11 OUT OF 1-10 NUMERIC SCALE. PRN PAIN MED ADMINISTERED PER ORDER. BED LOW, CALL LIGHT IN REACH.
[2017-09-25 00:52] VITALS: BP 129/49
--- NOTE | 2017-09-25 01:45 | NUR ---
PATIENT HAS BEEN VERY RESTLESS AND MOANING , CRYING OUT IN PAIN. SHE HAS HAD ALL HER AVAILABLE PRN MEDICATIONS AND SHE IS STILL CRYING OUT FOR HELP. RENAL MEDICAL SECRETARY FIRE TECHNOLOGY INSTRUCTOR HAS BEEN PAGED HOWEVER SHE HAS NOT CALLED BACK YET.BED LOW, CALL LIGHT IN REACH.
--- NOTE | 2017-09-25 03:20 | NUR ---
PAGING RENAL AGAIN TO REPORT PATIENTS DISCOMFORT. WAITING FOR CALL BACK.
--- NOTE | 2017-09-25 04:43 | NUR ---
DR HECTOR CALLED BACK AND GAVE ORDERS FOR NORCO, AND BUPRINEX. PATIENT IS RESTING COMFORTABLY AT THIS TIME. BED LOW, CALL LIGHT IN REACH.
--- NOTE | 2017-09-25 05:23 | NUR ---
ALLERGIST/PEDIATRIC PULMONOLOGIST AT BEDSIDE TO OBTAIN VITALS, CALL LIGHT IN REACH. WILL CONTINUE WITH PLAN OF CARE.
[2017-09-25 05:27] LABS: BASOPHILS 0.1 % (0-2); EOSINOPHILS 0.3 % (0-7); HEMATOCRIT 25.4 % (36.0-48.0); HEMOGLOBIN 8.5 g/dL (12-16); LYMPHOCYTES 5.3 % (15-50); MCH 30.4 pg (26.0-34.0); MCHC 33.5 g/dL (31.0-37.0); MCV 90.7 fL (80.0-100.0); MONOCYTES 4.7 % (2-11); NEUTROPHILS 87.6 % (40-80); PLATELET COUNT 125 10x3/uL (130-400); RDW 21.1 % (11.5-14.5); WBC 11.5 10x3/uL (4.8-10.8)
[2017-09-25 05:53] VITALS: BP 125/49
[2017-09-25 05:57] LABS: ANION GAP 14.5 mmol/L (8-16); CALCIUM 8.1 mg/dL (8.5-10.1); CARBON DIOXIDE 27.1 mmol/L (21.0-32.0); CREATININE - SERUM 2.2 mg/dL (0.6-1.3); POTASSIUM - SERUM 3.6 mmol/L (3.5-5.1)
--- NOTE | 2017-09-25 07:15 | NUR ---
REPORT RECEIVED. PT IS CRYING OUT AND SAYING SHE IS IN PAIN. PT IS ORIENTED TO PERSON ONLY. RR EVEN AND UNLABORED. SPOKE TO DR. CRESPO ABOUT PT CONDTION, GAVE ORDER FOR ATIVAN 1MG TIDPRN AND MORPHINE PO 2MG. WILL GIVE WITH MORNING MEDS. WILL CTM.
[2017-09-25 08:00] VITALS: BP 146/51
--- NOTE | 2017-09-25 12:20 | NUR ---
ASSISTED GRAIN OILSEED OR PASTURE GROWER TO GIVE PT A BATH. STAGE II PRESSURE ULCER AND EXCORIATION/REDNESS NOTED ON BUTTOCK. PT IS GRIMINCING AND CRYING OUT "HELP ME" DURING BATH. WILL GIVE PRN PAIN MED AND CTM.
--- NOTE | 2017-09-25 13:15 | NUR ---
SPOKE TO DR. DUMONT REGARDING PT CONDTION. GAVE NEW ORDERS. WILL CARRY OUT PHYSICAN ORDERS AND CTM.
[2017-09-25 13:20] VITALS: BP 137/55
--- NOTE | 2017-09-25 13:45 | NUR ---
DUE TO NO WEIGHT BEING DOCUMENTED ON PT, TRANSFERRED PT TO BED WITH BED SCALE. WILL WEIGH PT FOR DOBUTAMINE DRIP.
--- NOTE | 2017-09-25 14:00 | NUR ---
INSERTED MAGDALENO CATHETER PER ORDERS. URINE IS VERY CLOUDY. WILL SEND SPECIMEN TO LAB PER ORDERS.
--- NOTE | 2017-09-25 15:00 | NUR ---
PTS URINE IS VERY CLOUDY AND CONCENTRATED. PT IS STILL CRYING OUT, WILL GIVE FLEXERIL PRN. WILL CTM.
[2017-09-25 15:03] LABS: APPEARANCE HAZY (CLEAR); BILIRUBIN NEGATIVE (NEGATIVE); COLOR YELLOW (YELLOW); GLUCOSE NEGATIVE (NEGATIVE); KETONE NEGATIVE (NEGATIVE); NITRITE NEGATIVE (NEGATIVE); PROTEIN TRACE mg/dL (NEGATIVE); SPECIFIC GRAVITY 1.015 (1.005-1.020); UROBILINOGEN NORMAL (NORMAL)
[2017-09-25 15:04] LABS: BACTERIA MODERATE /hpf (NONE SEEN); WHITE CELLS - URINE >50 /hpf (0-5)
[2017-09-25 16:47] VITALS: BP 142/73
--- NOTE | 2017-09-25 18:30 | NUR ---
PT ASLEEP, AROUSES TO STIMULI. RR EVEN AND UNLABORED, PTS PAIN APPEARS TO BE DECREASED. WILL GIVE REPORT ON PT CONDTION FOR THE DAY.
[2017-09-25 20:35] VITALS: BP 152/60
[2017-09-26 00:50] VITALS: BP 153/60
--- NOTE | 2017-09-26 02:49 | NUR ---
CALL LIGHT IN REACH, WILL CONTINUE WITH PLAN OF CARE.
[2017-09-26 05:12] VITALS: BP 106/85
[2017-09-26 05:52] LABS: BASOPHILS 0.1 % (0-2); EOSINOPHILS 0 % (0-7); HEMATOCRIT 28.7 % (36.0-48.0); HEMOGLOBIN 9.7 g/dL (12-16); IMMATURE GRANULOCYTES 1.3 % (0-5); LYMPHOCYTES 2.9 % (15-50); MCH 30.3 pg (26.0-34.0); MCHC 33.8 g/dL (31.0-37.0); MCV 89.7 fL (80.0-100.0); MONOCYTES 3.5 % (2-11); NEUTROPHILS 92.2 % (40-80); RDW 20.8 % (11.5-14.5)
[2017-09-26 06:25] LABS: PLATELET COUNT 165 10x3/uL (130-400); WBC 17.5 10x3/uL (4.8-10.8)
[2017-09-26 06:50] LABS: ANION GAP 15.6 mmol/L (8-16); BILIRUBIN - TOTAL 2.5 mg/dL (0.2-1.3); CALCIUM 8.3 mg/dL (8.5-10.1); CARBON DIOXIDE 27.6 mmol/L (21.0-32.0); CREATININE - SERUM 1.9 mg/dL (0.6-1.3); POTASSIUM - SERUM 3.2 mmol/L (3.5-5.1); PROTEIN - SERUM 6.6 g/dL (6.4-8.2)
--- NOTE | 2017-09-26 07:50 | NUR ---
AM ROUNDS - PT IN BED AT THIS TIME AND APPEARS TO BE SLEEPING WITH EQUAL AND NON LABORED BREATHING. PT YELLS OUT AT TIMES. MONITOR SHOWS CAF, HR 97. IV TO URIGHT HAND, NS AT 50/HR. BED AT LOWEST POSITION. CALL VIRGEN IN USE/REACH. SIDE RAILS UP X2. WILL CONTINUE TO MONITOR
[2017-09-26 08:00] VITALS: BP 133/60
[2017-09-26 11:48] VITALS: BP 127/53
--- NOTE | 2017-09-26 12:09 | NUR ---
Patient Name: INDIA ELLIS Admission Status: Elective Accout number: [id number] Admission Date: 09-24-2017 : 1945 Admission Diagnosis: Attending: CHAGO NAIR Current LOS: 2 Anticipated DC Date: Planned Disposition: Inpatient Rehab Primary Insurance: MEDICARE A & B PLANNED EXTERNAL PROVIDER: [facility] Discharge Planning Comments: * Is the patient Alert and Oriented? No 0 * How many steps to enter\\exit or inside your home? 6 0 * PCP DR. BIRD 0 * Pharmacy [facility] 0 * Preadmission Environment Acute Inpatient Rehab 0 * Facility Name [facility] 0 * ADLs Partial Dependent 0 * Partial ADLs (Assistance needed) Ambulation Bathing Medication Management Toileting Transfers 0 * Equipment Other 0 * Other Equipment ALL MEDICAL EQUIPMENT PROVIDED BY REHAB AT HOME: PORTABLE OXYGEN CONCENTRATOR, CANE, SHOWER CHAIR AND WALKER 0 * List name and contact numbers for known caregivers / representatives who currently or will assist patient after discharge: KIMBERLY ELLIS, SPOUSE, , 0 * Community resources currently utilized Home Health 0 * Please name any agencies selected above. [facility], 0 * Additional services required to return to the preadmission environment? Yes * Can the patient safely return to the preadmission environment? Yes 0 * Has this patient been hospitalized within the prior 30 days at any hospital? Yes 0 CM RECEIVED CM CONSULT FOR PT FROM INPATIENT REHAB. CM MET WITH PT IN ROOM TO DISCUSS DISCHARGE PLANNING AND NEEDS. PT DID NOT OPEN EYES AND IN RESPONSE TO CM'S QUESTIONS, PT RESPONDS "OW, OW". CM REVIEWED CHART, PT RETURNED TO ACUTE CARE FLOOR FROM [facility]; CM CALLED PT'S SPOUSE AT HOME, , THERE WAS NO ANSWER; CM CALLED CELL NUMBER LISTED FOR KIMBERLY (SPOUSE) [phone], LEFT VOICE MAIL ASKING FOR RETURN CALL. CM WILL CONTINUE TO TRY TO CONTACT FAMILY TO DETERMINE IF PLAN IS FOR PT TO RETURN TO INPATIENT REHAB OR SOMETHING ELSE. Manufacturing Helper: Gabo Freedman
[2017-09-26 13:33] VITALS: Ht 165.1 cm; Wt 79.6 kg
[2017-09-26 16:15] VITALS: BP 115/39
--- NOTE | 2017-09-26 17:40 | NUR ---
PT IN BED AT THIS TIME WITH NO NEEDS. WILL CONTINUE TO MONITOR
[2017-09-26 21:38] VITALS: BP 145/48
[2017-09-27] VITALS (30 sets, daily range): BP systolic 76–142; BP diastolic 35–74
--- NOTE | 2017-09-27 00:23 | NUR ---
PT IN BED RESTING. BREATHING EVEN AND UNLABORED. BED IN LOW POSITION, CALL LIGHT WITHIN REACH. WILL CPOC.
--- NOTE | 2017-09-27 02:30 | NUR ---
PT IN BED RESTING. EVEN AND UNLABORED RESPIRATIONS NOTED.
[2017-09-27 07:03] LABS: BASOPHILS 0.1 % (0-2); EOSINOPHILS 0 % (0-7); HEMATOCRIT 26.6 % (36.0-48.0); HEMOGLOBIN 8.9 g/dL (12-16); IMMATURE GRANULOCYTES 1.2 % (0-5); LYMPHOCYTES 4.4 % (15-50); MCH 29.9 pg (26.0-34.0); MCHC 33.5 g/dL (31.0-37.0); MCV 89.3 fL (80.0-100.0); MONOCYTES 4.1 % (2-11); NEUTROPHILS 90.2 % (40-80); PLATELET COUNT 157 10x3/uL (130-400); RBC 2.98 10x6/uL (4.00-5.40); RDW 21.2 % (11.5-14.5); WBC 16.2 10x3/uL (4.8-10.8)
[2017-09-27 07:09] LABS: ANION GAP 12.6 mmol/L (8-16); BILIRUBIN - TOTAL 2.81 mg/dL (0.2-1.3); CALCIUM 8.1 mg/dL (8.5-10.1); CARBON DIOXIDE 27.8 mmol/L (21.0-32.0); CREATININE - SERUM 1.9 mg/dL (0.6-1.3); POTASSIUM - SERUM 3.4 mmol/L (3.5-5.1)
--- NOTE | 2017-09-27 07:10 | NUR ---
RECEIVED REPORT. ASSUMED CARE OF PATIENT. CALL LIGHT WITHIN REACH. RESP EVEN AND UNLABORED. PATIENT IS LETHARGIC, MOANS AT BEST WHEN TRYING TO AROUSE. IV FLUIDS INFUSING ORDERED. NO ACUTE DISTRESS.
--- NOTE | 2017-09-27 08:27 | NUR ---
PAGEReginaldo REDMOND AT THIS TIME DUE TO INCREASE WBC, GRAM - RODS IN URINE, TEMP OF 102.4 AND NO ANTIBIOTICS HAVE BEEN STARTED.
--- NOTE | 2017-09-27 09:15 | NUR ---
0840 RECEIVED CALL BACK FROM AND NEW ORDERS OBTAINED. 0845 22 GAUGE IV PLACED TO LEFT FOREARM X 1 STICK. GOOD BLOOD RETURN, EASY FLUSH. 0854 1ST SET BLOOD DRAWN 0856 2ND SET BLOOD CULTURES DRAWN POTASSIUM RIDER #1 INFUSING AT THIS TIME. LEVAQUIN HAS BEEN STARTED.
--- NOTE | 2017-09-27 10:33 | NUR ---
K+ RIDER #2 HUNG AT THIS TIME. NO DISTRESS.
--- NOTE | 2017-09-27 11:48 | NUR ---
FSBS 202. 4 UNITS HUMALOG ADMINISTERED PER SLIDING SCALE. NO DISTRESS.
--- NOTE | 2017-09-27 12:08 | NUR ---
K+ RIDER #3 HUNG AT THIS TIME. INCONTINENT CARE PROVIDED. CALL LIGHT WITHIN REACH.
--- NOTE | 2017-09-27 12:20 | NUR ---
WOUND CARE PROVIDED TO BILATERAL BUTTOCKS, SACRUM, AND COCCYX. WOUND CARE ALSO PROVIDED TO BILATERAL HEEL BLISTERS/DTI. HEELS ELEVATED AND BRIDGED. CALL LIGHT WITHIN REACH. NO DISTRESS.
--- NOTE | 2017-09-27 14:03 | NUR ---
K+ RIDER #4 HUNG AT THIS TIME. NO DISTRESS.
--- NOTE | 2017-09-27 16:10 | NUR ---
SPOKE TO DUE TO PATIENTS BP NOW 86/38 MANUALLY. ORDERS RECEIVED TO BOLUS WITH 500ML NS, TRANSFER TO ICU, CONSULT FOR CRITICAL CARE AND HAVE ICU NURSES CALL WHEN TRANSFERED. ORDERS PLACED IN COMPUTER AND RULING MACHINE SET UP OPERATOR PARKER NOTIFIED FOR THE NEED OF BED.
--- NOTE | 2017-09-27 16:28 | NUR ---
FSBS 167. NO COVERAGE PROVIDED. PATIENT IS LETHARGIC.
--- NOTE | 2017-09-27 16:28 | NUR ---
NS BOLUS CONTINUING TO INFUSE AT THIS TIME.
--- NOTE | 2017-09-27 16:46 | NUR ---
ON UNIT AND PATIENT REPORT GIVEN. REPORT GIVEN TO CHAU IN ICU AT THIS TIME.
--- NOTE | 2017-09-27 16:55 | NUR ---
REC'D TO ROOM 2303 FROM 2102 AND HOOKED UP TO CM. HYPOTENSIVE. LEVOPHED STARTED PER ORDERS. SPOKE WITH JAQUAN RN AND SHE IS CALLING DR. GOLDEN AND CALLING DR. DUMONT TO UPDATE THEM ABOUT TRANSFERING TO ICU. ORDERS REC'D FOR CENTRAL LINE FROM DR. FLEMING. LEVOPHED ORDERS FROM DR. FLEMING.HAS RIGHT ARM 22 GAUGE PIV WILL NOT FLUSH OR DRAW. LEFT ARM PIV 22 GAUGE FLUSHES AND DRAWS. LEVOPHED STARTED HERE. TITRATING TO EFFECT. LETHARGIC. DOES NOT SPEAK. DOES NOT FOLLOW COMMANDS.PPP. STAGE TWO ON BILATERAL HEELS. HEELS ARE BRIDGED NOW. HAS DRSG CD&I ON BUTTOCK DID NOT REMOVE. ON 3L O2 SATTING 95%. RR 32 AND LABORED. SURGERY BEING CONSULTED FOR CENTRAL LINE. SPOKE WITH DR. DELACRUZ TO UPDATE HIM ABOUT ORDER FOR CENTRAL LINE. SCD'S PLACED. CLWR. CPOC.
--- NOTE | 2017-09-27 17:07 | NUR ---
PATIENT TRANSFERED TO 2303 AT THIS TIME.
--- NOTE | 2017-09-27 17:30 | NUR ---
NOTIFIED AKANKSHA MAZA OF PATIENT TRANSFER TO ICU AT 1728 NOTIFIED PATIENT OF TRANSFER TO ICU AT 1718 NOTIFIED OF PATIENT TRANSFER TO ICU AT THIS TIME PATIENT WAS PREVIOUSLY RECEIVING DOBUTAMINE DRIP.
--- NOTE | 2017-09-27 17:59 | NUR ---
DC'D RIGHT ARM PIV WITH TIP INTACT.
--- NOTE | 2017-09-27 18:00 | NUR ---
LEFT ARM PIV WITH LEVOPHED BEING TITRATED TO EFFECT. NO S/S OF INFILTRATION. REDNESS OR EDEMA.
--- NOTE | 2017-09-27 18:07 | NUR ---
ORDERS FOR DR. GOLDEN AND DR. DUMONT TO BE CONSULTED BUT THEY ARE ALREADY ON THE CASE. SPOKE WITH DR. FLEMING EARLIER. HE KNOWS ABOUT CONSULT.
--- NOTE | 2017-09-27 18:08 | NUR ---
RESTING WITH EYES CLOSED. LAB JUST LEFT FROM DRAWING BLOOD FOR AMMONIA LEVEL. HR 104 UAF. SATTING 92% ON 3L O2 VIA NC. BP 114/59.
--- NOTE | 2017-09-27 18:13 | NUR ---
WAITING ON CENTRAL LINE PLACEMENT TO GIVE ABX.
--- NOTE | 2017-09-27 18:26 | NUR ---
MED 2 NURSE CONTACTED HER EARLIER AFTER BEING TRANSFERED TO ICU.
--- NOTE | 2017-09-27 18:33 | NUR ---
SPOKE WITH MR. ELLIS AND UPDATED HIM ABOUT SITUATION. HE SAID HE AND HIS HAD SPOKEN A WHILE BACK AND SHE WANTED TO BE A DNR.
--- NOTE | 2017-09-27 19:15 | NUR ---
RECEIVED CARE OF PT, ASSESSMENT PER FLOWSHEET. PT LETHARGIC, AROUSES TO PAINFUL STIMULI, DOES NOT FOLLOW COMMANDS, HR UCAF ON CM, MAGDALENO CATH PATENT, ON LEVOPHED AT 8 MCG/MIN, VS WITHIN PARAMETERS, WILL MONITOR.
--- NOTE | 2017-09-27 21:20 | NUR ---
NO VISITORS PRESENT AT THIS TIME, POSITIONED PT FOR COMFORT, PROVIDED ORAL CARE, CONT TO WEAN LEVOPHED GTT.
--- NOTE | 2017-09-27 23:10 | NUR ---
REASSESSMENT PER FLOWSHEET, HR CAF AT A RATE OF 98, PPP, CONTINUING TO WEAN OFF LEVOPHED.
[2017-09-28] VITALS (27 sets, daily range): BP systolic 90–115; BP diastolic 46–79
--- NOTE | 2017-09-28 00:55 | NUR ---
LEVOPHED GTT OFF, PT VOIDED MODERATE AMT OF SOFT FORMED STOOL WITH MANUAL ASSISTANCE, PERICARE PROVIDED AND PARTIAL LINEN CHANGE DONE.
--- NOTE | 2017-09-28 03:20 | NUR ---
AM CXR COMPLETED, PT MOANS IN RESPONSE TO ANY TACTILE STIMULATION OR MOVEMENT. REPOSITIONED FOR COMFORT, LEVOPHED REMAINS OFF.
[2017-09-28 05:08] LABS: BASOPHILS 0 % (0-2); EOSINOPHILS 0 % (0-7); HEMATOCRIT 23.5 % (36.0-48.0); HEMOGLOBIN 7.9 g/dL (12-16); IMMATURE GRANULOCYTES 0.7 % (0-5); LYMPHOCYTES 8.2 % (15-50); MCH 30.6 pg (26.0-34.0); MCHC 33.6 g/dL (31.0-37.0); MCV 91.1 fL (80.0-100.0); MONOCYTES 2.4 % (2-11); NEUTROPHILS 88.7 % (40-80); PLATELET COUNT 97 10x3/uL (130-400); RBC 2.58 10x6/uL (4.00-5.40); RDW 21.4 % (11.5-14.5); WBC 8.1 10x3/uL (4.8-10.8)
[2017-09-28 05:22] LABS: ALBUMIN 1.6 g/dL (3.4-5.0); ANION GAP 14.8 mmol/L (8-16); BILIRUBIN - TOTAL 2.8 mg/dL (0.2-1.3); CALCIUM 7.6 mg/dL (8.5-10.1); CARBON DIOXIDE 25.5 mmol/L (21.0-32.0); CREATININE - SERUM 2.3 mg/dL (0.6-1.3); POTASSIUM - SERUM 4.3 mmol/L (3.5-5.1); PROTEIN - SERUM 5.9 g/dL (6.4-8.2)
--- NOTE | 2017-09-28 05:39 | NUR ---
NO VISITORS PRESENT AT THIS TIME, PT CONT TO MOAN BUT DOES NOT ANSWER QUESTIONS OR FOLLOW COMMANDS, VSS, CONT POC.
--- NOTE | 2017-09-28 07:00 | NUR ---
REC'D CARE OF PT. ALERT AND FOLLOWING COMMANDS. ON 5L O2 VIA NC, SATTING 98%. RR 33 EVEN BUT LABORED. FOLLOWS COMMANDS BY NODDING HEAD WHEN ASKED TO. PT. SATATES "PLEASE HELP ME" BUT WHEN ASKED WHAT SHE NEEDS WILL NOT ANSWER. LEFT SCTL WITH NS AT 30CC PER HOUR. NO PRESSORS. CVP LEVELED AND ZEROED. 9 AT THIS TIME. SCABS/SORES/BRUISES OVER MULTIPLE AREAS OF HER BODY. BILAT HEEL PRESSURE ULCERS. HEELS ARE BRIDGED. SCD'S ARE ON. COCCYX/BUTTOCK AREA WITH DRSG INTACT. CHANGED LAST NIGHT PER NIGHT NURSE. MAE. HANNA. CLWR.CPOC.
--- NOTE | 2017-09-28 08:30 | NUR ---
REQUESTED H2O. OBLIGED.
--- NOTE | 2017-09-28 08:39 | NUR ---
REFUSED BREAKFAST TRAY. OFFERED LIQUIDS. TOOK SIPS OF H2O AND APPLE JUICE. NO S/S OF ASPIRATION.
[2017-09-28 08:43] LABS: APTT 39.1 SECONDS (22.8-39.4); INR 2.37 (0.85-1.17)
[2017-09-28 08:57] LABS: D-DIMER-QUANTITATIVE 6.73 ug/mLFEU (0.20-0.54)
--- NOTE | 2017-09-28 09:15 | NUR ---
REQUESTED H2O. OBLIGED. TAKES SIPS OF H2O.
--- NOTE | 2017-09-28 09:20 | NUR ---
UNIT ONE OF TWO OF PRBC INITIATED.
--- NOTE | 2017-09-28 10:07 | NUR ---
A&O X2. REORIENTED TO SITUATION. RESTING WITH EYES CLOSED. OPENS EYES UPON SPEAKING TO HER. VSS. NO PRESSORS. CONTROLLED AFIB ON CM. REMAINS ON 5L VIA NC SATTING 97%. CLWR. CPOC.
--- NOTE | 2017-09-28 10:29 | NUR ---
ONE OF TWO PRBC COMPLETED. VSS. NO S/S OF REACTION TO TRANSFUSION.
--- NOTE | 2017-09-28 10:35 | NUR ---
LASIX GAVE PER ORDERS. NO CHANGES IN LUNGS SOUNDS.
--- NOTE | 2017-09-28 10:52 | NUR ---
UNIT TWO OF TWO PRBC INITIATED.
--- NOTE | 2017-09-28 11:00 | NUR ---
CONTINUALLY WANTS H2O. GAVE SIPS THROUGHT THE DAY.
--- NOTE | 2017-09-28 12:51 | NUR ---
LUNCH TRAY SERVED.
--- NOTE | 2017-09-28 17:17 | NUR ---
FAMILY AT BEDSIDE. UPDATED. ASSISTED WITH TRAY.
--- NOTE | 2017-09-28 17:20 | NUR ---
CONTINUALLY WANTS H2O. GAVE HER SIPS THROUGHOUT THE DAY. APPLE JUICE GIVEN.
--- NOTE | 2017-09-28 21:10 | NUR ---
NO VISITORS PRESENT AT THIS TIME, ORAL CARE PROVIDED, REPOSITIONED FOR COMFORT, CONT TO MONITOR.
[2017-09-29] VITALS (60 sets, daily range): BP systolic 91–134; BP diastolic 44–80
--- NOTE | 2017-09-29 01:50 | NUR ---
ORAL CARE PROVIDED WITH SWABS AND SOLUTION, MOUTH MOISTURIZER APPLIED, PT POSITIONED FOR COMFORT, VSS.
--- NOTE | 2017-09-29 03:20 | NUR ---
AM CXR COMPLETED PER ORDER, PT REPOSITIONED FOR COMFORT, ORAL CARE PROVIDED.
[2017-09-29 04:35] LABS: BASOPHILS 0 % (0-2); EOSINOPHILS 0 % (0-7); IMMATURE GRANULOCYTES 0.5 % (0-5); LYMPHOCYTES 6.3 % (15-50); MCH 30.1 pg (26.0-34.0); MCHC 33.7 g/dL (31.0-37.0); MONOCYTES 2.1 % (2-11); NEUTROPHILS 91.1 % (40-80); PLATELET COUNT 79 10x3/uL (130-400); RDW 19.8 % (11.5-14.5); WBC 9.2 10x3/uL (4.8-10.8)
[2017-09-29 04:36] LABS: HEMATOCRIT 32.6 % (36.0-48.0); MCV 89.1 fL (80.0-100.0); RBC 3.66 10x6/uL (4.00-5.40)
[2017-09-29 05:05] LABS: ALBUMIN 1.5 g/dL (3.4-5.0); ANION GAP 12.7 mmol/L (8-16); BILIRUBIN - TOTAL 1.65 mg/dL (0.2-1.3); CALCIUM 7.3 mg/dL (8.5-10.1); CARBON DIOXIDE 26.5 mmol/L (21.0-32.0); CREATININE - SERUM 2.2 mg/dL (0.6-1.3); POTASSIUM - SERUM 4.2 mmol/L (3.5-5.1); PROTEIN - SERUM 5.7 g/dL (6.4-8.2)
--- NOTE | 2017-09-29 05:15 | NUR ---
AM LABS REVIEWED, NOTHING TO TREAT PER ELECTROLYTE PROTOCOL. VSS, CONT POC.
--- NOTE | 2017-09-29 07:30 | NUR ---
REPORT RECEIVED. ASSUMED CARE OF PATIENT. FOUND TO HAVE SOILED HERSELF WITH BOWEL MOVEMENT AT ASSESSMENT. PT CLEANED UP AND SAMPLE WAS ACQUIRED FOR OCCULT STOOL. PT HAS SORES AND SCABS ALL OVER. LARGE WOUND TO COCCYX, COVERED WITH MEPILEX DRESSING. HEELS HAVE PRESSURE ULCERS, BOGGY. LEFT FOOT HAS WOUND TO TOP WITH DRESSING INTACT. HAS GLASSES ON. NO DENTURES AT THIS TIME.
--- NOTE | 2017-09-29 08:45 | NUR ---
ATTEMPTED TO FEED PATIENT SCRAMBLED EGGS. IMMEDIATELY STARTED CHOKING. VERY WEAK COUGH. NIGHT NURSE REPORTED PATIENT UNABLE TO SWALLOW THIN LIQUIDS WITH MEDICATIONS. ORDERED SPEECH THERAPY CONSULT FOR EVALUATION.
--- NOTE | 2017-09-29 08:56 | NUR ---
Nutrition follow-up: Diet: ADA consistent CHO PO intake very poor due to pt being very weak and having issues swallowing. Speech eval has been ordered. Labs reviewed Wt: 159# RDN following.
--- NOTE | 2017-09-29 09:03 | CN ---
PATIENT NAME:INDIA PEREZ MEDICAL RECORD: [id number] : 47 LOCATION:[facility].2303 ADMIT DATE: 09/24/17 ACCOUNT: [id number] CONSULTING PHYSICIAN: JED GOLDEN MD REFERRING PHYSICIAN: CHAGO NAIR MD DATE OF CONSULTATION: 09/26/2017 DIAGNOSES: 1. Congestive heart failure, chronic systolic dysfunction. 2. Cardiomyopathy, ischemic. 3. Coronary artery disease. 4. Status post coronary bypass graft surgery. 5. Status post multivessel percutaneous transluminal coronary angioplasty stent. 6. Hypertension. 7. Diabetes. HISTORY OF PRESENT ILLNESS: Ms. Perez presents with increasing shortness of breath, pulmonary edema, found to be in congestive heart failure. Her last echocardiogram was this month with ejection fraction in the 20% range. Last cardiac intervention was this summer. At that time, she had 2-vessel PTCA stent. She has not had any chest pain or chest discomfort. She does have an elevated white blood cell count of 17.5 and she is in renal failure with a BUN of 102 with a creatinine of 2.0. PHYSICAL EXAMINATION: GENERAL APPEARANCE: Well-nourished, well-developed, appears stated age. Level of distress, comfortable. PSYCHIATRIC: Mental status, alert, normal affect. Orientation, oriented to time, place and person. EYES: Lids and conjunctiva, noninjected. No discharge, no pallor. ENT: Lips, teeth, gums, normal dentition. Oropharynx, no cyanosis, no pallor. NECK: Carotid arteries, bilateral normal upstroke, no bruits, no thrills. JUGULAR VEINS: No jugular venous pressure or distention. CERVICAL LYMPH NODES: Nontender, nonenlarged. THYROID: Not enlarged. Nontender. No nodules. LUNGS: Respiratory effort, unlabored. CHEST: Normal curvature. No thoracic deformity. No chest wall tenderness. Percussion, resonant. Auscultation, clear. No wheezes, no rales, no rhonchi. CARDIOVASCULAR: Precordial exam, nondisplaced. No heaves or pericardial thrills. Rate and rhythm, regular. Heart sounds, normal S1, normal S2. No S3, no gallop, no rub. Systolic murmur, not heard. Diastolic murmur, not heard. EXTREMITIES: No cyanosis, no edema. Peripheral pulses, full and equal in all extremities, except as noted. No bruits appreciated. ABDOMEN: Soft, nondistended. Normal aorta. No bruit. Nontender. No masses. Liver, nontender, no hepatomegaly. Spleen, nontender, no splenomegaly. MUSCULOSKELETAL: No joint tenderness. No joint swelling. No erythema. NEUROLOGICAL: Normal gait, normal strength, normal tone. SKIN: Warm and dry. REVIEW OF SYSTEMS: The patient reports easy bruising but reports no swollen glands. The patient reports no fever, no night sweats, no significant weight gain, no significant weight loss. No significant exercise tolerance. The patient reports no dry eyes, no irritation, no vision change. Patient reports no difficulty hearing and no ear pain. Patient reports no frequent nose bleeds CONSULT REPORT [id number] INDIA PEREZ or nose and sinus problems. Patient reports on arm pain on exertion. No shortness of breath while lying down. No history of heart murmur. Patient reports no cough, no wheezing or coughing up blood. Patient reports no abdominal pain, no vomiting. Normal appetite. No diarrhea and not vomiting blood. No nausea and no constipation. Patient reports no incontinence. No difficulty urinating. No hematuria. No increased frequency. Patient reports no muscle aches. No weakness, no arthralgias, no back pain. No swelling of the extremities. Patient reports no abnormal mole, no jaundice, no rashes. Reports no loss of consciousness. No weakness and no numbness. No seizures, dizziness, or headaches. The patient reports no depression, no sleep disturbance, feeling safe in a relationship and no alcohol abuse. Patient reports on fatigue. Reports no runny nose or sinus pressure. No itching, no hives, and no frequent sneezing. OVERALL IMPRESSION: Congestive heart failure, renal failure, possible pneumonia as well. From a cardiac standpoint, she is on dobutamine. Her heart rate and blood pressure are stable on the dobutamine, systolic blood pressure being in the 100 range. She is as well on carvedilol, would continue the carvedilol. Obviously, would not add an DONTE or ARB secondary to the renal insufficiency and diuretics will be per renal who is seeing her as well. Overall prognosis is poor with multisystem failure and an advanced end-stage cardiomyopathy. TRANSINT:[id number] Voice Confirmation ID: [id number] DOCUMENT ID: [id number] JED GOLDEN MD at 0903 CC: [id number] DICTATION DATE: 09/26/17 1103 MANAGER CLEANING: 09/26/17 1152 ADM IN [facility] [address] [place] [address]
--- NOTE | 2017-09-29 09:06 | NUR ---
AT BEDSIDE. UPDATE PROVIDED. ASKED FOR HER TO HAVE SOME COFFEE. EXPLAINED DIFFICULTY SWALLOWING AND THAT THE PATIENT NEEDS AN EVALUATION FIRST.
--- NOTE | 2017-09-29 10:17 | NUR ---
DR HERNANDEZ HAS BEEN BY TO SEE PATIENT. IS NOW IN ISOLATION PRECAUTION DUE TO MICRO RESULTS OF MRSA.
--- NOTE | 2017-09-29 11:49 | NUR ---
NOON TIME MEDICATIONS GIVEN. PT TEMP FOUND TO BE BELOW NORMAL. PT COVERED. TO GET BRIAN HUGGER. HAD ANOTHER BOWEL MOVEMENT. CLEANED UP AND REPOSITIONED. WOUND NURSE HAS BEEN IN TO CHECK COCCYX WOUND AND HEELS.
--- NOTE | 2017-09-29 11:58 | NUR ---
BRIAN HUGGER PLACED ON PATIENT.
--- NOTE | 2017-09-29 12:36 | NUR ---
ULTRASOUND IN PROGRESS
--- NOTE | 2017-09-29 13:50 | NUR ---
Wound care: Noted numerous scabs/sores on left leg and arm. Wounds are healing. Right heel is purple/red nonblanchable (deep tissue injury) Left heel is covered with intact blister (stage 2 pressure injury). Heels were painted with Cavilon skin protectant, covered with mepilex foam and secured with medipore tape. Heels are bridged. Left dorsal foot has open wound measuring 1.5cm x 1.5cm. This is being protected with adaptic. Right #2 toe has a sore that is covered with a scab. This is left open to air. Sacrum has a deep tissue injury and coccyx has excoriated skin. Mepilex sacral is being used for protection and comfort. An air overlay mattress has been placed on bed. Pt is being turned/repositioned q 2 hours. She is incontinent of bowel and bladder and has f/c. Wound care will continue monitoring.
--- NOTE | 2017-09-29 14:00 | NUR ---
AIR OVERLAY MATTRESS APPLIED TO BED. PT REPOSITIONED. RECTAL TEMP TAKEN. 91.5. BRIAN HUGGER IN USE. BLANKET ON, ROOM THERMOSTAT RAISED.
--- NOTE | 2017-09-29 14:06 | NUR ---
PT REPORT REC'D, PT CARE ASSUMED, PT ON AIR OVERLAY, LIMITED VERBALIZATION, RECTAL TEMP 91.5. BED LOCKED IN LOWEST POSITION, CALL LIGHT IN REACH, VSS, BED ALARM ACTIVE, WILL CONTINUE TO MONITOR PT.
--- NOTE | 2017-09-29 15:00 | NUR ---
REPOSITIONED PT, PROPPED WITH PILLOWS, VSS, REASSESSMENT COMPLETED, SEE FLOW SHEET. ROOM FREE OF CLUTTER, CALL LIGHT IN REACH, BED LOCKED IN LOWEST POSITION, BED ALARM ACTIVE, WILL CONTINUE TO MONITOR PT.
--- NOTE | 2017-09-29 15:13 | NUR ---
DR. CORMIER RETURNING PAGE, INFORMED OF CONSULT THAT PT IS ON VANC AND THAT DR. FLEMING SAID SHE COULD SEE PT TOMORROW.
--- NOTE | 2017-09-29 16:00 | NUR ---
PT FAMILY AT THE BEDSIDE, UPDATE GIVEN, VSS, WILL CONTINUE TO MONITOR PT.
--- NOTE | 2017-09-29 17:00 | NUR ---
REPOSITIONED PT, PROPPED WITH PILLOWS, VSS, WILL CONTINUE TO MONITOR PT.
--- NOTE | 2017-09-29 19:25 | NUR ---
INCONT OF SMALL BROWN STOOL. DELIA-CARE AND LINEN CHANGE DONE. REPOSITIONED UP IN BED TO L SIDE WITH PILLOWS.
--- NOTE | 2017-09-29 19:34 | NUR ---
VANCOMYCIN LEVEL = 17.3 AFTER 2 DOSES. WILL CONTINUE TO MONITOR CLOSELY DUE TO RENAL FUNCTION.
--- NOTE | 2017-09-29 21:30 | NUR ---
REPOSITIONED FOR COMFORT, ORAL CARE PROVIDED,
--- NOTE | 2017-09-29 23:30 | NUR ---
REASSESSMENT COMPELTE, NO CHANGES NOTED, PT RESTING COMFORTABLY AT THIS TIME, WILL CON'T TO MONITOR
[2017-09-30] VITALS (25 sets, daily range): BP systolic 91–136; BP diastolic 44–97
--- NOTE | 2017-09-30 01:20 | NUR ---
REPOSITIONED FOR COMFORT, WILL CON'T TO MONITOR
--- NOTE | 2017-09-30 03:15 | NUR ---
REASSESSMENT COMPLETE, NO CHANGES NOTED, PT RESTING COMFORTABLY, VSS, WILL CON'T TO MONITOR
[2017-09-30 04:48] LABS: BASOPHILS 0.1 % (0-2); EOSINOPHILS 0 % (0-7); HEMATOCRIT 33.7 % (36.0-48.0); HEMOGLOBIN 11.6 g/dL (12-16); IMMATURE GRANULOCYTES 0.8 % (0-5); LYMPHOCYTES 5.9 % (15-50); MCH 30.3 pg (26.0-34.0); MCHC 34.4 g/dL (31.0-37.0); MONOCYTES 1.8 % (2-11); NEUTROPHILS 91.4 % (40-80); RBC 3.83 10x6/uL (4.00-5.40); WBC 9.5 10x3/uL (4.8-10.8)
[2017-09-30 04:50] LABS: PLATELET COUNT 110 10x3/uL (130-400)
--- NOTE | 2017-09-30 05:03 | NUR ---
REPOSITIONED FOR COMFORT, WILL CON'T TO MONITOR
[2017-09-30 05:20] LABS: ALBUMIN 1.6 g/dL (3.4-5.0); ANION GAP 15.5 mmol/L (8-16); BILIRUBIN - TOTAL 1.72 mg/dL (0.2-1.3); CALCIUM 7.3 mg/dL (8.5-10.1); CARBON DIOXIDE 25.1 mmol/L (21.0-32.0); CREATININE - SERUM 2.1 mg/dL (0.6-1.3); POTASSIUM - SERUM 4.6 mmol/L (3.5-5.1)
--- NOTE | 2017-09-30 07:00 | NUR ---
PT REPORT REC'D, PT CARE ASSUMED. PT LETHARGIC, UNABLE TO FOLLOW COMMANDS. VSS. LEFT SUBCLAVIAN CVL WITH FLUIDS INFUSING, SEE FLOW SHEET, DRESSING CDI. MAGDALENO CATHETER FREE OF KINKS TO GRAVITY WITH YELLOW URINE RETURN. SHIFT ASSESSMENT COMPLETED, SEE FLOW SHEET. ROOM FREE OF CLUTTER, CALL LIGHT IN REACH, BED LOCKED IN LOWEST POSITION, WILL CONTINUE TO MONITOR PT.
--- NOTE | 2017-09-30 07:35 | NUR ---
ORDERED A VANCOMYCIN TROUGH PRIOR TO TODAYS DOSE. RENAL FUNCTION IS POOR AND WANT TO MONITOR CLOSELY
--- NOTE | 2017-09-30 07:40 | NUR ---
DR. CHAO AT THE BEDSIDE
--- NOTE | 2017-09-30 08:50 | NUR ---
PT FAMILY AT THE BEDSIDE, "I JUST WANT HER COMFORTABLE." SPOKE WITH SHU MELGAR APRN, WILL CONSULT HOSPICE.
--- NOTE | 2017-09-30 09:14 | NUR ---
JAMAL COYNE RN AT THE BEDSIDE SPEAKING WITH FAMILY.
--- NOTE | 2017-09-30 09:50 | NUR ---
DR. LARA AT THE BEDSIDE SPEAKING WITH PTS FAMILY
--- NOTE | 2017-09-30 11:00 | NUR ---
REPOSITIONED PT, PROPPED WITH PILLOWS, VSS, REASSESSMENT COMPLETED, SEE FLOW SHEET. ROOM FREE OF CLUTTER, CALL LIGHT IN REACH, BED ALARM ACTIVE, WILL CONTINUE TO MONITOR PT.
--- NOTE | 2017-09-30 11:30 | NUR ---
DC'ED RIGHT FOREARM PIV, TIP INTACT, PRESSURE APPLIED, BANDAID APPLIED. 10CC REMOVED FROM MAGDALENO CATHETER, DC'ED MAGDALENO CATHETER. PT HAD BOWEL MOVEMENT, COMPLETE BED BATH AND LINEN CHANGE.
--- NOTE | 2017-09-30 12:45 | NUR ---
PT AT THE BEDSIDE, ALL QUESTIONS ANSWERED, VSS, WILL CONTINUE TO MONITOR PT.
--- NOTE | 2017-09-30 13:59 | NUR ---
HOSPICE HERE TALKING TO AT BS.
--- NOTE | 2017-09-30 15:06 | NUR ---
Rec'd call from Hannah with [facility] - patient has been accepted to inpatient hospice. Anticipate transfer later this evening, after shift change. Patient will admit to Dr. Guerra & transfer via ambulance. Nursing to call report to [phone].
--- NOTE | 2017-09-30 16:47 | NUR ---
VANCOMYCIN TROUGH WAS 15.1 DRAWN A LITTLE EARLY, BUT WILL CONINTUE ORDERED
--- NOTE | 2017-09-30 18:42 | NUR ---
PT TURNED AND MOUTH CARE COMPLETE. AWAITING CALL FROM [facility].
--- NOTE | 2017-09-30 19:15 | NUR ---
REPORT RECIEVED. ASSESSMENT COMPLETE PER FLOW SHEET. VSS. ORAL CARE ADM. REPOSITIONED ON L SIDE. WILL CONTINUE TO MONITOR
--- NOTE | 2017-09-30 21:22 | NUR ---
UNABLE TO ADM 2100 ORAL MEDS PT UNABLE TO SWALLOW. NO FAMILY AT THIS TIME. WILL CONTINUE TO MONITOR
--- NOTE | 2017-09-30 22:35 | NUR ---
[facility] CALLED JAMIE PRATT GIVEN REPORT. VSS NO NEW CHANGES WILL CALL ANGEL
--- NOTE | 2017-09-30 23:01 | NUR ---
ATTEMPT TO CALL X2 NO ANSWER. WILL CONTINUE TO FURTHER ATTEMPT.
--- NOTE | 2017-09-30 23:44 | NUR ---
AMBULANCE PAGED. WILL AWAIT TRANSFER NO NEW CHANGES
--- NOTE | 2017-10-01 00:09 | NUR ---
EMS ARRIVED PT TRANFSERED WITHOUT DIFFICULTY. VSS.
--- NOTE | 2017-10-01 11:38 | CN ---
PATIENT NAME:INDIA PEREZ MEDICAL RECORD: [id number] : 47 LOCATION:[facility].2303 ADMIT DATE: 09/24/17 ACCOUNT: [id number] CONSULTING PHYSICIAN: HENRY FLEMING MD REFERRING PHYSICIAN: CHAGO NAIR MD DATE OF CONSULTATION: 09/27/2017 CONSULT REQUESTING PHYSICIAN: Brent Gordon MD REASON FOR CONSULTATION: Septic shock, acute mental status changes. HISTORY OF PRESENT ILLNESS: Ms. Perez is a 72-year-old female who was in the rehabilitation with aqbnn-yn-vmwbnip congestive heart failure, acute renal failure, and the patient was brought to the floor. She has running fever of 102 today and now she is totally unresponsive. The patient is hypotensive. The patient is unresponsive. The history was taken mainly by talking to the nursing staff and reviewing the patient's note. PAST MEDICAL HISTORY: 1. COPD. 2. Chronic hypoxic respiratory failure. 3. History of cerebrovascular accident. 4. History of cardiomyopathy, congestive heart failure with systolic dysfunction. 5. Chronic kidney disease. 6. Hypertension. 7. Peripheral vascular disease. PAST SURGICAL HISTORY: 1. She has a CABG. She is on multiple cardiac catheterizations and stent placement. 2. Carotid endarterectomy. 3. Femoropopliteal bypass. ALLERGIES: SHE IS ALLERGIC TO ASPIRIN, INFLUENZA VIRUS, CEPHALOSPORIN, CITRUS, SULFA, THIAZIDE, ACETAMINOPHEN, BEE VENOM, CODEINE, HYDROCODONE, MEPERIDINE, METHADONE, METOLAZONE, AND PENICILLIN. MEDICATIONS: She is on digoxin IV. Her all other medication is reviewed. PERSONAL AND SOCIAL HISTORY: Unknown. FAMILY HISTORY: Unknown. PHYSICAL EXAMINATION: GENERAL: Now, the patient is sleepy and very lethargic and the patient is almost unresponsive. VITAL SIGNS: The blood pressure is 83/39, pulse is 95, respirations is 24, temperature 100.2, SPO2 is 94% on 3 liter nasal cannula. HEENT: Conjunctivae is pink, sclerae anicteric. NECK: Supple, no JVD. CHEST: The chest excursion is minimal on both sides. There are bilateral crackles. No wheezing. HEART: Rate and rhythm irregular. Normal sound. Grade 2/6 systolic murmur. ABDOMEN: Soft, bowel sounds present. No hepatosplenomegaly. CONSULT REPORT [id number] INDIA PEREZ RECTAL: Deferred. EXTREMITIES: No cyanosis, no clubbing. There are 2+ pedal edema. SKIN: The skin is warm, normal turgor. CENTRAL NERVOUS SYSTEM: The patient is unresponsive. IMAGING: Chest radiograph on the 25 of September, there is bilateral increased interstitial markings. There is small bilateral pleural effusion. There is no pneumothorax. OTHER LABORATORY DATA: CBC: The WBC is 16.2, hemoglobin 8.9, hematocrit 26.6, the platelet count is 157. Chemistry: Sodium 137, potassium 3.4, BUN is 101, creatinine 1.9. Liver enzymes within normal range. IMPRESSION: 1. Cvyid-mc-qxjhdfk hypoxic respiratory failure. 2. Acute mental status changes most likely secondary to uremia, rule out hypercarbia. 3. Septic shock. 4. Congestive heart failure with chronic systolic dysfunction, cardiomyopathy. 5. Follow up by Dr. Rodriguez. 6. Urinary tract infection. 7. Acute febrile illness, most likely secondary to urinary tract infection. 8. Leukocytosis. 9. Ufkvq-ld-leeqvne renal failure, possibly acute tubular necrosis, possible prerenal azotemia. 10. Hypokalemia. 11. Myelodysplastic syndrome. RECOMMENDATION: 1. Start on Levaquin IV, meropenem IV, vancomycin IV. Start her on Levophed. 2. IV fluids. 3. Methylprednisolone IV. 4. Albuterol ipratropium nebulizer. 5. Check the ammonia level. Check the ABGs. Check the chest radiograph, follow up labs and chest radiograph in the morning. Blood culture times 2, follow up on the sensitivity of the urine culture. 6. Follow up labs and chest x-ray and radiographs in the morning. Dr. Gordon, thank you for involving me in the care of Ms. Perez. The critical care time is 50 minutes. TRANSINT:[id number] Voice Confirmation ID: [id number] DOCUMENT ID: [id number] HENRY FLEMING MD at 1138 CC: BRENT GORDON MD [id number] DICTATION DATE: 09/27/17 1709 AUDIOVISUAL TECH: 09/27/171902 DIS IN 10/01/17 [facility] [address] [place] [address]
--- NOTE | 2017-10-14 12:19 | OP ---
PATIENT NAME: INDIA ELLIS MEDICAL RECORD: [id number] :47 LOCATION:[facility] D.2303 ADMISSION DATE:09/24/17 SURGEON: TRISTA DELACRUZ MD DATE OF OPERATION: 09/27/2017 PREOPERATIVE DIAGNOSES: 1. Mental status changes. 2. Congestive heart failure. 3. Diabetes mellitus. 4. Lizca-iz-tklnnzh kidney disease. 5. Coronary artery disease. 6. Need for intravenous access. POSTOPERATIVE DIAGNOSES: 1. Mental status changes. 2. Congestive heart failure. 3. Diabetes mellitus. 4. Yaaoc-oe-rwwxkht kidney disease. 5. Coronary artery disease. 6. Need for intravenous access. PROCEDURE: Left subclavian vein triple-lumen central venous line placement. SURGEON: Trista Delacruz MD REPORT OF PROCEDURE: The patient's left chest was prepped and draped in a sterile fashion. A total of 5 cc of 1% lidocaine was infused into the subcutaneous tissues. A needle was used to cannulate the left subclavian vein. A guidewire was advanced with ease. Over this wire, a dilator was placed followed by a triple lumen catheter. The catheter aspirated nonpulsatile dark blood and flushed easily in all 3 ports. This was sutured into place with 3-0 silk ties and dressed appropriately. COMPLICATIONS: None. CONDITION: Stable. ANESTHESIA: Local. BLOOD LOSS: Minimal. The procedure was done in the intensive care unit at the bedside. TRANSINT:[id number] Voice Confirmation ID: [id number] DOCUMENT ID: [id number] TRISTA DELACRUZ MD at 1219 CC: [id number] DICTATION DATE: 09/27/171932 SPECIAL EDUCATION TEACHING ASSISTANT: 09/27/172045 DIS IN 10/01/17 [facility] [address] [place] [id number]
== END 2017-10-01 00:10 | disposition home health service (06) | DRG 871 ==
LOC: D.ICU 16:24 → D.M2 16:24 → D.ICU 09-27 17:10
PROVIDERS: Family Medicine Adult Medicine; ADMIT Emergency Medicine
PROC: 0T9B70Z Drainage of Bladder with Drainage Device, Via Natural or Artificial Opening (ICD-10-PCS; principal; 2017-09-25)
DX: A41.9 Sepsis, unspecified organism (principal); I50.23 Acute on chronic systolic (congestive) heart failure; N17.0 Acute kidney failure with tubular necrosis; J18.9 Pneumonia, unspecified organism; J96.21 Acute and chronic respiratory failure with hypoxia; R65.21 Severe sepsis with septic shock; G93.49 Other encephalopathy; I13.0 Hypertensive heart and chronic kidney disease with heart failure and stage 1 through stage 4 chronic kidney disease, or unspecified chronic kidney disease; N39.0 Urinary tract infection, site not specified; E87.1 Hypo-osmolality and hyponatremia; N18.9 Chronic kidney disease, unspecified; E11.22 Type 2 diabetes mellitus with diabetic chronic kidney disease; I25.10 Atherosclerotic heart disease of native coronary artery without angina pectoris; E11.65 Type 2 diabetes mellitus with hyperglycemia; E11.40 Type 2 diabetes mellitus with diabetic neuropathy, unspecified; E87.6 Hypokalemia; D46.9 Myelodysplastic syndrome, unspecified; Z66 Do not resuscitate; D63.1 Anemia in chronic kidney disease; R74.8 Abnormal levels of other serum enzymes; D69.6 Thrombocytopenia, unspecified; I25.5 Ischemic cardiomyopathy; Z95.5 Presence of coronary angioplasty implant and graft; Z95.1 Presence of aortocoronary bypass graft; Z86.73 Personal history of transient ischemic attack (TIA), and cerebral infarction without residual deficits